=== PATIENT | female | born 1970 | race African-American/Black ===

== ENCOUNTER 2017-04-01 01:23 | Emergency (ER) | payer SELFPAY ==
--- NOTE | 2017-04-01 01:43 | ER Document Report ---
ED General - General Chief Complaint: Breathing Difficulty Stated Complaint: SHORTNESS OF BREATH Time Seen by Provider: 04/01/17 01:33 Mode of Arrival: Medic Information source: Patient Notes: This is a 46-year-old female with a history of hypertension, migraines who presents to the emergency room with shortness of breath occurring while she was lying down. EMS arrived at the scene and she was noted to have wheezing. The patient was treated with albuterol nebulizer and IV Solu-Medrol. She states that the shortness of breath improved significantly after the nebulizer treatment. She denies any chest pain. TRAVEL OUTSIDE OF THE [place] IN LAST 30 DAYS: No - HPI Onset: Just prior to arrival Onset/Duration: Gradual Quality of pain: No pain Severity: None Pain Level: Denies Associated symptoms: Shortness of breath, Other Exacerbated by: Denies - Wheezing Relieved by: Denies Similar symptoms previously: No Recently seen / treated by doctor: No - Related Data Allergies/Adverse Reactions: No Known Allergies Allergy (Unverified 04/01/17 01:32) Home Medications: Current Home Medications Lisinopril/Hydrochlorothiazide [Lisinopril-Hctz 20-12.5 mg Tab] 1 each PO DAILY 04/01/17 [History] Past Medical History - General Information source: Patient - Social History Smoking Status: Never Smoker Cigarette use (# per day): No Chew tobacco use (# tins/day): No Frequency of alcohol use: None Drug Abuse: None Lives with: Spouse/Significant other Family History: None Patient has suicidal ideation: No Patient has homicidal ideation: No - Past Medical History Cardiac Medical History: Reports: Hx Congestive Heart Failure, Hx Hypertension Renal/ Medical History: Denies: Hx Peritoneal Dialysis Past Surgical History: Reports: Hx Section, Hx Orthopedic Surgery - L elbow Review of Systems - Review of Systems Constitutional: Chills. denies: Fever EENT: No symptoms reported Cardiovascular: See HPI Respiratory: See HPI Gastrointestinal: No symptoms reported Genitourinary: No symptoms reported Female Genitourinary: No symptoms reported Musculoskeletal: No symptoms reported Skin: No symptoms reported Hematologic/Lymphatic: No symptoms reported Neurological/Psychological: No symptoms reported Physical Exam - Vital signs Vitals: Resp Pulse Ox 23 H 93 04/01/17 01:26 04/01/17 01:26 Notes: Physical exam: GENERAL: 46-year-old female, alert and oriented 3, no acute distress HEAD: Atraumatic, normocephalic. EYES: Pupils equal round and reactive to light, extraocular movements intact, sclera anicteric, conjunctiva are normal. ENT: TMs normal, nares patent, oropharynx clear without exudates. Moist mucous membranes. NECK: Normal range of motion, supple without obvious mass or JVD. LUNGS: Breath sounds clear to auscultation bilaterally and equal. No wheezes rales or rhonchi. HEART: Regular rate and rhythm without murmurs, rubs or gallops. ABDOMEN: Soft, normoactive bowel sounds. No tenderness to palpation. No guarding, no rebound. No masses appreciated. EXTREMITIES: Normal range of motion, no pitting or edema. No clubbing or cyanosis. NEUROLOGICAL: Cranial nerves II through XII grossly intact. Normal speech, moving all extremities. PSYCH: Normal mood, normal affect. SKIN: Warm, Dry, normal turgor, no rashes or lesions noted. Course - Re-evaluation Re-evalutation: 04/01/17 04:23 Note: The patient does give a history of being in the [place] ER when she was told she might have CHF on chest x-ray. She does not know if she has a history of a left bundle branch block. She has been asymptomatic in the ER. She did develop some shortness of breath at home and EMS had appreciated some wheezing and a given her a nebulizer treatment. Patient states that the nebulizer treatment took away the shortness of breath and the wheezing. She denies having any chest pain. Today's EKG shows sinus rhythm with a left bundle branch block. The patient's cardiac enzymes are normal. CTA of the chest shows no evidence of pulmonary emboli. CT does show possible atypical pneumonia. The patient denies any fever , chills or cough. Her lungs are clear on exam. I will place her on doxycycline because of the findings on the CT scan. I will also give her an inhaler to go home with. Ultimately, I want her followed by primary care doctor as well as a receiving associate store. She is new to the area and I will give her the number of the [facility] as well as Dr. Antony's office number for cardiology. - Vital Signs Vital signs: Temp Pulse Resp BP Pulse Ox 98.3 F 20 140/86 H 94 01/05/18 01:32 04/01/17 04:01 04/01/17 04:01 04/01/17 04:01 - Laboratory Result Diagrams: 04/01/17 01:50 04/01/17 01:50 Laboratory results interpreted by me: 04/01/17 04/01/17 01:50 01:50 WBC 14.7 H MCHC 31.8 L RDW 14.7 H Absolute Neutrophils 10.1 H Chloride 110 H Glucose 133 H - Diagnostic Test Radiology reviewed: Image reviewed, Reports reviewed - CTA of the chest shows no pulmonary emboli. Possible atypical pneumonia. - EKG Interpretation by Me Rate: Tachycardia Rhythm: NSR - EKG shows sinus tachycardia with a ventricular rate of 107, there is a left bundle branch block. There is no old EKG to compare. Discharge - Discharge Clinical Impression: Reactive airway disease., Atypical pneumonia Condition: Stable Disposition: HOME, SELF-CARE Additional Instructions: The blood work looked good today. Your heart was a little enlarged on the CT scan which is consistent with previous reports from [place]. The CT also showed that you may have an atypical pneumonia so we are starting you on antibiotic. Take the inhaler as prescribed for shortness of breath. Start the doxycycline later today (she was given this morning's dose). Restart your blood pressure medicine. Follow-up in the [facility] which is a free clinic: Call later today for the next available appointment. Follow-up with Dr. Antony of cardiology: Tell the boiler washer that you were seen in the ER and the ER doctor wanted to seen by Dr. Antony. Return to the emergency room for any chest pain, shortness of breath or any concerns or getting worse. Prescriptions: Doxycycline Hyclate 100 mg PO BID #14 capsule Lisinopril/Hydrochlorothiazide [Lisinopril-Hctz 20-12.5 mg Tab] 1 each PO DAILY #30 tablet Referrals: [facility] [Provider Group] - Follow up as needed (This is the number the free clinic: Call for the next available appointment.) JOSSELINE RODGERS MD [ACTIVE STAFF] - Follow up as needed (This is the number for the receiving associate store affiliated with the hospital. Tell the boiler washer that you was seen in the emergency room and the ER doctor wanted to seen by the receiving associate store.)
[2017-04-01 02:04] LABS: ABSOLUTE BASOPHILS # (AUTO) 0.1 10^3/uL (0.0-0.2); ABSOLUTE EOSINOPHILS # (AUTO) 0.2 10^3/uL (0.0-0.6); ABSOLUTE LYMPHOCYTES (AUTO) 3.7 10^3/uL (0.5-4.7); ABSOLUTE MONOCYTES (AUTO) 0.5 10^3/uL (0.1-1.4); ABSOLUTE NEUT (AUTO) 10.1 10^3/uL (1.7-8.2); BASOPHILS % (AUTO) 0.8 % (0-2); EOSINOPHILS % (AUTO) 1.4 % (0-6); HEMATOCRIT 43.9 % (36.0-47.0); LYMPHOCYTES % (AUTO) 25.4 % (13-45); MEAN CORPUSCULAR HEMOGLOBIN 27.3 pg (27.0-33.4); MEAN CORPUSCULAR HGB CONC 31.8 g/dL (32.0-36.0); MEAN CORPUSCULAR VOLUME 86 fl (80-97); MONOCYTES % (AUTO) 3.6 % (3-13); PLATELET COUNT 159 10^3/uL (150-450); RED BLOOD COUNT 5.12 10^6/uL (3.72-5.28); RED CELL DISTRIBUTION WIDTH 14.7 % (11.5-14.0); SEGMENTED NEUTROPHILS % (AUTO) 68.8 % (42-78); TOTAL CELLS COUNTED % (AUTO) 100 %; WHITE BLOOD COUNT 14.7 10^3/uL (4.0-10.5)
[2017-04-01 02:13] LABS: ALANINE AMINOTRANSFERASE 29 U/L (9-52); ALBUMIN 4.1 g/dL (3.5-5.0); ALKALINE PHOSPHATASE 80 U/L (38-126); ANION GAP 8 (5-19); ASPARTATE AMINO TRANSFERASE 15 U/L (14-36); BILIRUBIN,DIRECT 0.2 mg/dL (0.0-0.4); BILIRUBIN,TOTAL 0.3 mg/dL (0.2-1.3); BLOOD UREA NITROGEN 11 mg/dL (7-20); CALCIUM 9.9 mg/dL (8.4-10.2); CARBON DIOXIDE 26 mmol/L (22-30); CHLORIDE 110 mmol/L (98-107); CREATINE KINASE 105 U/L (30-135); GLUCOSE 133 mg/dL (75-110); MAGNESIUM 1.9 mg/dL (1.6-2.3); POTASSIUM 4.9 mmol/L (3.6-5.0); SODIUM 144.2 mmol/L (137-145)
[2017-04-01 02:27] LABS: CREATINE KINASE MB 0.76 ng/mL (<4.55); TROPONIN I 0.022 ng/mL
--- NOTE | 2017-04-01 03:11 | RADIOLOGY REPORT (SQ) ---
EXAM DESCRIPTION: CHEST SINGLE VIEW CLINICAL HISTORY: 46 years, Female, sob COMPARISON: None. NUMBER OF VIEWS: 1 LIMITATIONS: None. FINDINGS: Mild enlargement of the cardiac silhouette. Clear lung parenchyma. Intact bony thorax. IMPRESSION: Mild enlargement of the cardiac silhouette. 2011 [employer]- All Rights Reserved
[2017-04-01 04:04] VITALS: BP 140/86
--- NOTE | 2017-04-01 04:10 | RADIOLOGY REPORT (SQ) ---
EXAM DESCRIPTION: CTA CHEST CLINICAL HISTORY: 46 years Female, sob COMPARISON: CR, same day. TECHNIQUE: 100 mL nonionic IV contrast. Multiplanar reformat. This exam was performed according to our departmental dose-optimization program, which includes automated exposure control, adjustment of the mA and/or kV according to patient size and/or use of iterative reconstruction technique. FINDINGS: Small bilateral pleural effusions. Groundglass airspace opacity of the left lower lobe and minimally of the right lower lobe. No evidence of significant pulmonary embolus; pulmonary arterial enhancement measures to 220 Hounsfield units. No right ventricular strain. 1.4 cm likely right adrenal adenoma with CT density of 18 Hounsfield units. Minimal mediastinal lymphadenopathy includes a 1.0 x 0.7 cm left aortopulmonary node. 0.4 cm calcified granuloma of the left lower lung. Mild disc desiccation. Inferior neck, axillae, airway, lymphatics, heart, vasculature, upper abdomen, and musculoskeleton appear otherwise unremarkable. IMPRESSION: 1. Possible atypical pneumonia of bilateral lower lobes. 2. No evidence of pulmonary embolus.
[2017-04-01] MEDS ORDERED: ALBUTEROL SULFATE HFA (90 MCG/PUFF) 8 GM MDI (1 MDI/ER DISP) IH PRN (04:15)
[2017-04-01] MEDS ORDERED: DOXYCYCLINE HYCLATE 100 MG TABLET PO ONE (04:37)
--- NOTE | 2017-04-01 09:24 | EKG REPORT ---
SEVERITY:- ABNORMAL ECG - SINUS TACHYCARDIA PROBABLE LEFT ATRIAL ABNORMALITY LEFT BUNDLE BRANCH BLOCK : Confirmed by: Lb Guevara 01-Apr-2017 09:23:47
== END 2017-04-01 05:01 | disposition home or self-care (01) ==
LOC: ER 01:23
DX: J18.9 Pneumonia, unspecified organism (principal); J45.909 Unspecified asthma, uncomplicated; R06.02 Shortness of breath; I10 Essential (primary) hypertension; Z79.899 Other long term (current) drug therapy
CPT/HCPCS: 93005; 99285; 36415; 82553; 82550; 83735; 85025; 80053; 84484; 71045; 71275; 93010; J3490

== ENCOUNTER 2018-04-03 11:55 | Emergency (ER) | payer BC ==
--- NOTE | 2018-04-03 12:58 | ER Document Report ---
ED General - General Chief Complaint: Shortness Of Breath Stated Complaint: CHEST PAIN, LEFT ARM PAIN Time Seen by Provider: 04/03/18 12:57 TRAVEL OUTSIDE OF THE [place] IN LAST 30 DAYS: No - Related Data Allergies/Adverse Reactions: No Known Allergies Allergy (Verified 04/03/18 12:02) Past Medical History - Social History Family History: None - Past Medical History Cardiac Medical History: Reports: Hx Congestive Heart Failure, Hx Hypertension Renal/ Medical History: Denies: Hx Peritoneal Dialysis Past Surgical History: Reports: Hx Section, Hx Orthopedic Surgery - L elbow Physical Exam - Vital signs Vitals: Temp Pulse Resp BP Pulse Ox 98.2 F 111 H 16 167/116 H 98 04/03/18 12:02 04/03/18 12:02 04/03/18 12:02 04/03/18 12:02 04/03/18 12:02 Course - Vital Signs Vital signs: Temp Pulse Resp BP Pulse Ox 98.2 F 111 H 16 167/116 H 98 04/03/18 12:02 04/03/18 12:02 04/03/18 12:02 04/03/18 12:02 04/03/18 12:02
[2018-04-03] MEDS ORDERED: NITROGLYCERIN 0.4 MG/TAB 25 TAB/BOTTLE SL PRN (13:02)
[2018-04-03] MEDS ORDERED: ASPIRIN 81 MG TABLET, CHEWABLE PO ONE (13:02)
--- NOTE | 2018-04-03 13:04 | ER Document Report ---
ED Medical Screen (RME) - General Chief Complaint: Shortness Of Breath Stated Complaint: CHEST PAIN, LEFT ARM PAIN Time Seen by Provider: 04/03/18 12:57 Notes: RAPID MEDICAL EVALUATION DISCLOSURE I have seen this patient as part of a Rapid Medical Evaluation and, if applicable, placed any initially appropriate orders. The patient will be seen and fully evaluated, including a full history and physical exam, by a provider (in Main ED or Fast Track) when a room becomes available. 47-year-old female PMH tobacco abuse hypertension here with complaints of chest pain shortness of breath ongoing for the past few weeks. The chest pain radiates up to her left shoulder and down the left arm. She has the chest pain worse with exertion but completely resolves when she sits down and stops walking or exerting herself. The chest pain was initially sporadic however over the past 7 days has become more frequent and persistent with exertion. The pain is not worse with breathing. She has not tried anything for the symptoms. She reports being seen in the emergency department last year and "I had fluid around my heart" but did not have any insurance so she did not follow-up outpatient. EXAM CTAB RRR TRAVEL OUTSIDE OF THE [place] IN LAST 30 DAYS: No - Related Data Allergies/Adverse Reactions: No Known Allergies Allergy (Verified 04/03/18 12:02) Past Medical History - Past Medical History Cardiac Medical History: Reports: Hx Congestive Heart Failure, Hx Hypertension Renal/ Medical History: Denies: Hx Peritoneal Dialysis Past Surgical History: Reports: Hx Section, Hx Orthopedic Surgery - L elbow Physical Exam - Vital signs Vitals: Temp Pulse Resp BP Pulse Ox 98.2 F 111 H 16 167/116 H 98 04/03/18 12:02 04/03/18 12:02 04/03/18 12:02 04/03/18 12:02 04/03/18 12:02 Course - Vital Signs Vital signs: Temp Pulse Resp BP Pulse Ox 98.2 F 111 H 16 167/116 H 98 04/03/18 12:02 04/03/18 12:02 04/03/18 12:02 04/03/18 12:02 04/03/18 12:02
--- NOTE | 2018-04-03 13:06 | EKG REPORT ---
SEVERITY:- ABNORMAL ECG - SINUS TACHYCARDIA PROBABLE LEFT ATRIAL ABNORMALITY LEFT BUNDLE BRANCH BLOCK : Confirmed by: Domenic Castano MD 03-Apr-2018 13:05:18
[2018-04-03] MEDS ORDERED: ASPIRIN 81 MG TABLET, CHEWABLE ONE (13:08)
--- NOTE | 2018-04-03 13:49 | RADIOLOGY REPORT (SQ) ---
EXAM DESCRIPTION: CHEST 2 VIEWS COMPLETED DATE/TIME: 04/03/2018 1:20 pm REASON FOR STUDY: CP SOB COMPARISON: 04/01/2017 EXAM PARAMETERS: NUMBER OF VIEWS: two views TECHNIQUE: Digital Frontal and Lateral radiographic views of the chest acquired. RADIATION DOSE: NA LIMITATIONS: none FINDINGS: LUNGS AND PLEURA: No opacities, masses or pneumothorax. No pleural effusion. MEDIASTINUM AND HILAR STRUCTURES: No masses or contour abnormalities. HEART AND VASCULAR STRUCTURES: Mild cardiomegaly. BONES: No acute findings. HARDWARE: None in the chest. OTHER: No other significant finding. IMPRESSION: Mild cardiomegaly without acute abnormality of the lungs. No focal airspace opacity. TECHNICAL DOCUMENTATION: JOB ID: [id number] [employer]- All Rights Reserved Reading location - IP/workstation name: [email or web address]
[2018-04-03 14:02] LABS: ABSOLUTE EOSINOPHILS # (AUTO) 0.1 10^3/uL (0.0-0.6); ABSOLUTE LYMPHOCYTES (AUTO) 2.9 10^3/uL (0.5-4.7); ABSOLUTE MONOCYTES (AUTO) 0.4 10^3/uL (0.1-1.4); ABSOLUTE NEUT (AUTO) 5.6 10^3/uL (1.7-8.2); BASOPHILS % (AUTO) 0.4 % (0-2); EOSINOPHILS % (AUTO) 1.2 % (0-6); HEMATOCRIT 42.2 % (36.0-47.0); HEMOGLOBIN 13.8 g/dL (12.0-15.5); LYMPHOCYTES % (AUTO) 31.6 % (13-45); MEAN CORPUSCULAR HEMOGLOBIN 27.9 pg (27.0-33.4); MEAN CORPUSCULAR HGB CONC 32.7 g/dL (32.0-36.0); MEAN CORPUSCULAR VOLUME 85 fl (80-97); RED BLOOD COUNT 4.95 10^6/uL (3.72-5.28); RED CELL DISTRIBUTION WIDTH 15.3 % (11.5-14.0); SEGMENTED NEUTROPHILS % (AUTO) 61.8 % (42-78); TOTAL CELLS COUNTED % (AUTO) 100 %
[2018-04-03 14:20] LABS: ALANINE AMINOTRANSFERASE 20 U/L (9-52); ALBUMIN 4.1 g/dL (3.5-5.0); ALKALINE PHOSPHATASE 85 U/L (38-126); ANION GAP 5 (5-19); ASPARTATE AMINO TRANSFERASE 15 U/L (14-36); BILIRUBIN,DIRECT 0.2 mg/dL (0.0-0.4); BILIRUBIN,TOTAL 0.4 mg/dL (0.2-1.3); BLOOD UREA NITROGEN 14 mg/dL (7-20); CALCIUM 9.3 mg/dL (8.4-10.2); CARBON DIOXIDE 29 mmol/L (22-30); CHLORIDE 107 mmol/L (98-107); GLUCOSE 110 mg/dL (75-110); POTASSIUM 4.2 mmol/L (3.6-5.0); SODIUM 140.8 mmol/L (137-145); TOTAL PROTEIN 7.4 g/dL (6.3-8.2)
--- NOTE | 2018-04-03 14:24 | ER Document Report ---
ED General - General Chief Complaint: Shortness Of Breath Stated Complaint: CHEST PAIN, LEFT ARM PAIN Time Seen by Provider: 04/03/18 12:57 Information source: Patient, Relative TRAVEL OUTSIDE OF THE [place] IN LAST 30 DAYS: No - HPI Patient complains to provider of: Short of breath Onset: Other - Here is a 47-year-old female that presents for evaluation of shortness of breath. She has had worsening exertional dyspnea over the last several months with an associated weight gain and some bloating with that time. Occasionally she has had some chest discomfort associated with it as well. She denies productive cough, fevers, chills, abdominal pain diarrhea constipation dysuria rashes or other symptoms she has seen her primary physician in the past was started on a blood pressure medication but it did not entirely resolve her symptoms. 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 - Related Data Allergies/Adverse Reactions: No Known Allergies Allergy (Verified 04/03/18 12:02) Past Medical History - General Information source: Patient, Relative - Social History Smoking Status: Current Every Day Smoker Chew tobacco use (# tins/day): No Frequency of alcohol use: None Drug Abuse: None Family History: None Patient has suicidal ideation: No Patient has homicidal ideation: No - Past Medical History Cardiac Medical History: Reports: Hx Congestive Heart Failure, Hx Hypertension Renal/ Medical History: Denies: Hx Peritoneal Dialysis Past Surgical History: Reports: Hx Section, Hx Orthopedic Surgery - L elbow Review of Systems - Review of Systems -: Yes All other systems reviewed and negative Physical Exam - Vital signs Vitals: Temp Pulse Resp BP Pulse Ox 98.2 F 111 H 16 167/116 H 98 04/03/18 12:02 04/03/18 12:02 04/03/18 12:02 04/03/18 12:02 04/03/18 12:02 - General General appearance: Appears well, Alert - HEENT Head: Normocephalic, Atraumatic Eyes: Normal Pupils: PERRL - Respiratory Respiratory status: No respiratory distress Chest status: Nontender Breath sounds: Normal Chest palpation: Normal - Cardiovascular Rhythm: Regular Heart sounds: Normal auscultation Murmur: No - Abdominal Inspection: Normal Distension: No distension Bowel sounds: Normal Tenderness: Nontender Organomegaly: No organomegaly - Back Back: Normal, Nontender - Extremities General upper extremity: Normal inspection, Nontender, Normal color, Normal ROM, Normal temperature General lower extremity: Normal inspection, Nontender, Normal color, Normal ROM, Normal temperature, Normal weight bearing. No: Abner's sign - Neurological Neuro grossly intact: Yes Cognition: Normal Orientation: AAOx4 Helen Coma Scale Eye Opening: Spontaneous [place] Coma Scale Verbal: Oriented Helen Coma Scale Motor: Obeys Commands Helen Coma Scale Total: 15 Speech: Normal Motor strength normal: LUE, RUE, LLE, RLE Sensory: Normal - Psychological Associated symptoms: Normal affect, Normal mood Course - Re-evaluation Re-evalutation: 04/05/18 00:32 39-year-old female who presented for some shortness of breath with appreciable peripheral edema. Patient had workup initiated through triage in which they obtained blood tests chest x-ray as well as an EKG. EKG was nondiagnostic, she did have a slightly elevated BNP. Other labs were unremarkable. Bedside ultrasound demonstrated what appeared to be an intact ejection fraction for this patient without an obvious pericardial effusion. She had a normal work of breathing on room air with faint crackles in the inferior lung bases. Believe likely she has some edema has an underlying element of this. We will initiate treatment with a diuretic the emergency department and reassess. After administration of diuretic in the emergency department she did have an improvement in her work of breathing said that she felt much better. She did say that previously she had had an improvement while using an inhaler. Believe it is relatively benign intervention and will give her a inhaler for as needed use in addition to starting her on a daily thiazide diuretic at a low dose. - Vital Signs Vital signs: Temp Pulse Resp BP Pulse Ox 98.2 F 111 H 15 138/84 H 99 04/03/18 12:02 04/03/18 12:02 04/03/18 18:01 04/03/18 18:00 04/03/18 18:01 - Laboratory Result Diagrams: 04/03/18 13:40 04/03/18 13:40 Laboratory results interpreted by me: 04/03/18 04/03/18 13:40 13:40 RDW 15.3 H Plt Count 129 L NT-Pro-B Natriuret Pep 598 H Discharge - Discharge Clinical Impression: Pulmonary edema cardiac cause, Shortness of breath Condition: Good Disposition: HOME, SELF-CARE Instructions: Dependent Edema ([facility]) Additional Instructions: You were seen today in the emergency department for your shortness of breath. I think that your shortness of breath is from too much fluid around your lungs. You had an evaluation including a physical exam as well as blood work and a chest x-ray. A marker for damage to your heart was normal today. I do think you should schedule an appointment with your primary doctor in the coming week for reevaluation. Prescriptions: Albuterol Sulfate [Ventolin Hfa 8 gm Mdi (1 Mdi/ER Disp)] 2 puff IH ASDIR PRN #1 inhaler PRN Reason: Hydrochlorothiazide [Hydrodiuril 25 mg Tablet] 25 mg PO QAM #30 tablet Forms: Smoking Cessation Education
[2018-04-03 14:32] LABS: NT PRO BNP 598 pg/mL (<125)
[2018-04-03 14:33] LABS: TROPONIN I < 0.012 ng/mL
[2018-04-03 14:49] LABS: PLATELET COUNT 129 10^3/uL (150-450)
[2018-04-03 14:51] LABS: ANISOCYTOSIS SLIGHT; HYPOCHROMASIA 1+; PLATELET COMMENT DECREASED; PLATELET LARGE PRESENT; POLYCHROMASIA 1+
[2018-04-03] MEDS ORDERED: FUROSEMIDE INJ/PF 20 MG/2 ML SDV IV ONE (15:30)
[2018-04-03 18:40] VITALS: BP 138/84
== END 2018-04-03 18:40 | disposition home or self-care (01) ==
LOC: ER 11:55
DX: J81.1 Chronic pulmonary edema (principal); R06.02 Shortness of breath; R07.9 Chest pain, unspecified; M79.602 Pain in left arm; F17.200 Nicotine dependence, unspecified, uncomplicated; I50.9 Heart failure, unspecified; I11.0 Hypertensive heart disease with heart failure
CPT/HCPCS: 93005; 99284; 96374; 36415; 85025; 80053; 84484; 83880; 71046; 93010; J1940

== ENCOUNTER 2018-07-02 11:50 | Emergency (ER) | payer BC, OTHER ==
[2018-07-02] MEDS ORDERED: HYDROCHLOROTHIAZIDE 25 MG TABLET PO ONE (12:26)
--- NOTE | 2018-07-02 12:29 | ER Document Report ---
ED Medical Screen (RME) - General Chief Complaint: Shortness Of Breath Stated Complaint: SHORT OF BREATH,EAR BLEEDING Time Seen by Provider: 07/02/18 12:20 TRAVEL OUTSIDE OF THE [place] IN LAST 30 DAYS: No - HPI Notes: 07/02/18 12:26 Patient is a 48-year-old female with a history of hypertension and "possible CHF" who presents the emergency department complaining of dyspnea on exertion over the past week without chest pain or recent URI. Patient states that at the end of the day she usually does have swelling in her legs bilaterally. 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 She does note bleeding from her right ear after using a Q-tip the other day. She has been out of her HCTZ 25mg that she takes daily for HTN. No other concerns or complaints. Denies any prolonged immobilization, distance travel, recent surgery/trauma, personal cancer history, hormone use, smoking, or previous DVT/PE. Denies any headache, fever, neck pain, URI, sore throat, chest pain, palpitations, syncope, cough, wheeze, abdominal pain, nausea/vomiting/diarrhea, urinary retention, dysuria, hematuria, or rash. I have treated and performed a rapid initial assessment of this patient. A comprehensive ED assessment and evaluation of the patient, analysis of test results and completion of medical decision making process will be conducted by additional ED providers. PHYSICAL EXAMINATION: GENERAL: Well-appearing, well-nourished and in no acute distress. A&Ox4. Answers questions appropriately. Rt EAC: small abrasion to EAC. TM wnl and w/o perforation. LUNGS: Breath sounds clear to auscultation bilaterally and equal. No wheezes rales or rhonchi. HEART: Regular rate and rhythm without murmurs, rubs, gallops. Extremities: Trace pitting edema bilaterally. Baner negative bilaterally and no lower extremity asymmetry.. NEUROLOGICAL: Normal speech, normal gait. PSYCH: Normal mood, normal affect. - Related Data Allergies/Adverse Reactions: No Known Allergies Allergy (Verified 04/03/18 12:02) Past Medical History - Past Medical History Cardiac Medical History: Reports: Hx Congestive Heart Failure, Hx Hypertension Renal/ Medical History: Denies: Hx Peritoneal Dialysis Past Surgical History: Reports: Hx Section, Hx Orthopedic Surgery - L elbow Physical Exam - Vital signs Vitals: Temp Pulse Resp BP Pulse Ox 97.9 F 103 H 16 158/110 H 95 07/02/18 12:02 07/02/18 12:02 07/02/18 12:02 07/02/18 12:02 07/02/18 12:02 Course - Vital Signs Vital signs: Temp Pulse Resp BP Pulse Ox 97.9 F 103 H 16 158/110 H 95 07/02/18 12:02 07/02/18 12:02 07/02/18 12:02 07/02/18 12:02 07/02/18 12:02
[2018-07-02 13:07] LABS: ABSOLUTE BASOPHILS # (AUTO) 0.1 10^3/uL (0.0-0.2); ABSOLUTE EOSINOPHILS # (AUTO) 0.1 10^3/uL (0.0-0.6); ABSOLUTE LYMPHOCYTES (AUTO) 3.2 10^3/uL (0.5-4.7); ABSOLUTE MONOCYTES (AUTO) 0.5 10^3/uL (0.1-1.4); ABSOLUTE NEUT (AUTO) 6.6 10^3/uL (1.7-8.2); BASOPHILS % (AUTO) 0.8 % (0-2); EOSINOPHILS % (AUTO) 1.2 % (0-6); HEMATOCRIT 44.6 % (36.0-47.0); HEMOGLOBIN 14.7 g/dL (12.0-15.5); LYMPHOCYTES % (AUTO) 30.1 % (13-45); MEAN CORPUSCULAR HEMOGLOBIN 27.6 pg (27.0-33.4); MEAN CORPUSCULAR HGB CONC 32.9 g/dL (32.0-36.0); MEAN CORPUSCULAR VOLUME 84 fl (80-97); MONOCYTES % (AUTO) 4.8 % (3-13); PLATELET COUNT 133 10^3/uL (150-450); RED BLOOD COUNT 5.31 10^6/uL (3.72-5.28); SEGMENTED NEUTROPHILS % (AUTO) 63.1 % (42-78); TOTAL CELLS COUNTED % (AUTO) 100 %; WHITE BLOOD COUNT 10.5 10^3/uL (4.0-10.5)
[2018-07-02 13:20] LABS: ALANINE AMINOTRANSFERASE 22 U/L (9-52); ALBUMIN 4.1 g/dL (3.5-5.0); ALKALINE PHOSPHATASE 82 U/L (38-126); ANION GAP 8 (5-19); ASPARTATE AMINO TRANSFERASE 20 U/L (14-36); BILIRUBIN,DIRECT 0.3 mg/dL (0.0-0.4); BILIRUBIN,TOTAL 0.4 mg/dL (0.2-1.3); BLOOD UREA NITROGEN 12 mg/dL (7-20); CALCIUM 9.9 mg/dL (8.4-10.2); CARBON DIOXIDE 27 mmol/L (22-30); CHLORIDE 104 mmol/L (98-107); GLUCOSE 130 mg/dL (75-110); POTASSIUM 4.5 mmol/L (3.6-5.0); SODIUM 139.2 mmol/L (137-145); TOTAL PROTEIN 7.8 g/dL (6.3-8.2)
--- NOTE | 2018-07-02 13:26 | RADIOLOGY REPORT (SQ) ---
EXAM DESCRIPTION: CHEST SINGLE VIEW COMPLETED DATE/TIME: 07/02/2018 1:03 pm REASON FOR STUDY: SOB COMPARISON: 04/03/2018 TECHNIQUE: Single frontal radiographic view of the chest acquired. NUMBER OF VIEWS: One view. LIMITATIONS: None. FINDINGS: LUNGS AND PLEURA: No pneumothorax. No consolidation or pleural effusion. MEDIASTINUM AND HILAR STRUCTURES: Stable. HEART AND VASCULAR STRUCTURES: Stable. BONES: No acute findings. HARDWARE: None in the chest. OTHER: No other significant finding. IMPRESSION: NO ACUTE FINDINGS. TECHNICAL DOCUMENTATION: JOB ID: [id number] [id number] 2010 [employer]- All Rights Reserved Reading location - IP/workstation name: [email or web address]
[2018-07-02] MEDS ORDERED: FUROSEMIDE INJ/PF 20 MG/2 ML SDV IV ONE (14:44)
[2018-07-02 15:12] LABS: CREATINE KINASE MB 0.49 ng/mL (<4.55); TROPONIN I 0.012 ng/mL
--- NOTE | 2018-07-02 15:38 | EKG REPORT ---
SEVERITY:- ABNORMAL ECG - SINUS RHYTHM PROBABLE LEFT ATRIAL ABNORMALITY LEFT BUNDLE BRANCH BLOCK : Confirmed by: Domenic Castano MD 02-Jul-2018 15:37:37
[2018-07-02 19:21] VITALS: BP 156/108
--- NOTE | 2018-07-02 23:16 | ER Document Report ---
Entered by CORTNEY PEREZ SCRIBE 07/02/18 1441 Acting as scribe for:ROBYN CRAFT DO ED Respiratory Problem - General Chief Complaint: Shortness Of Breath Stated Complaint: SHORT OF BREATH,EAR BLEEDING Time Seen by Provider: 07/02/18 12:20 Primary Care Provider: CORRY PACHECO MD [Primary Care Provider] - Follow up as needed Mode of Arrival: Ambulatory Information source: Patient Notes: 48 year old female that presents to the emergency department today with complaints of shortness of breath for the last several days. Patient states she has been out of her HCTZ 25 mg for several days and she has noticed that her shortness of breath became worse since running out of medications. Patient also mentions that x3 days ago she was "cleaning her ears" and she "felt a lump" and has noticed some drainage from her ear since then. Patient states that she has not had any difficulty hearing. Patient states that she sometimes develops left arm pain when walking around. Patient states that the most recent time this occurred was last week. Patient denies any chest pain currently. TRAVEL OUTSIDE OF THE [place] IN LAST 30 DAYS: No - Related Data Allergies/Adverse Reactions: No Known Allergies Allergy (Verified 04/03/18 12:02) Past Medical History - General Information source: Patient - Social History Smoking Status: Current Every Day Smoker Cigarette use (# per day): Yes Frequency of alcohol use: Social Drug Abuse: None Lives with: Family Family History: None Patient has suicidal ideation: No Patient has homicidal ideation: No - Past Medical History Cardiac Medical History: Reports: Hx Congestive Heart Failure, Hx Hypertension Past Surgical History: Reports: Hx Section, Hx Orthopedic Surgery - L elbow Review of Systems - Review of Systems Constitutional: No symptoms reported EENT: See HPI, Other - right ear drainage, "lump" felt Cardiovascular: denies: Chest pain Respiratory: See HPI, Short of breath Gastrointestinal: No symptoms reported Genitourinary: No symptoms reported Female Genitourinary: No symptoms reported Musculoskeletal: See HPI, Leg swelling Skin: No symptoms reported Hematologic/Lymphatic: No symptoms reported Neurological/Psychological: No symptoms reported -: Yes All other systems reviewed and negative Physical Exam - Vital signs Vitals: Temp Pulse Resp BP Pulse Ox 97.9 F 103 H 16 158/110 H 95 07/02/18 12:02 07/02/18 12:02 07/02/18 12:02 07/02/18 12:02 07/02/18 12:02 - Notes Notes: PHYSICAL EXAM GENERAL: Alert, interacts well. No acute distress. HEAD: Normocephalic, atraumatic. EYES: Pupils equal, round, and reactive to light. Extraocular movements intact. ENT: Oral mucosa moist, tongue midline. TMs intact bilaterally, superficial abrasion over the 6 oclock position in the right external auditory canal. NECK: Full range of motion. Supple. Trachea midline. LUNGS: Clear to auscultation bilaterally, no wheezes, rales, or rhonchi. No respiratory distress. HEART: Regular rate and rhythm. No murmurs, gallops, or rubs. ABDOMEN: Soft, non-tender. Non-distended. Bowel sounds present in all 4 nathaly drants. No guarding, rigidity, or rebound. EXTREMITIES: Moves all 4 extremities spontaneously. No edema, radial and dorsalis pedis pulses 2/4 bilaterally. No cyanosis. NEUROLOGICAL: Alert and oriented x3. Normal speech. PSYCH: Normal affect, normal mood. SKIN: Warm, dry, normal turgor. Course - Re-evaluation Re-evalutation: 07/02/18 17:44 CBC unremarkable, CMP grossly unremarkable, glucose is slightly elevated 138, cardiac enzymes negative, proBNP elevated at 1450. Chest x-ray shows no acute findings. EKG is nonischemic. Vital signs here are normal. Patient has no evidence of respiratory distress. Very mild trace edema on her feet. Patient has not had chest pain for several days. No indication for admission at this time. Patient is aware that she will need to follow-up with her primary care physician as an outpatient and with craft demonstrator as outpatient to have a stress test sometime over the next month. Patient will be provided with refills of her nitroglycerin and her hydrochlorothiazide. Limited prescription for Lasix. Patient has been referred to Dr. Roper and Dr. Samayoa for cardiology follow-up. She will contact them herself. 07/02/18 23:16 Computer downtime occurred as soon as I tried to discharge this patient, written discharge instructions were given as were hand written prescriptions. - Vital Signs Vital signs: Temp Pulse Resp BP Pulse Ox 98 F 70 16 156/108 H 98 07/02/18 19:21 07/02/18 19:21 07/02/18 19:21 07/02/18 19:21 07/02/18 19:21 - Laboratory Result Diagrams: 07/02/18 12:35 07/02/18 12:35 Laboratory results interpreted by me: 07/02/18 07/02/18 07/02/18 12:35 12:35 12:35 RBC 5.31 H RDW 15.0 H Plt Count 133 L Glucose 130 H NT-Pro-B Natriuret Pep 1450 H - EKG Interpretation by Me Additional EKG results interpreted by me: 07/02/18 17:45 EKG shows sinus rhythm at a rate of 91, left bundle branch block, negative sgarbossa criteria, unchanged from prior EKG with the exception of rate on 04/03/2016 per my interpretation. Discharge - Discharge Clinical Impression: Medication refill Acute exacerbation of CHF (congestive heart failure) Qualifiers: Heart failure type: systolic Qualified Code(s): I50.23 - Acute on chronic systolic (congestive) heart failure Chest pain Qualifiers: Chest pain type: precordial pain Qualified Code(s): R07.2 - Precordial pain Condition: Stable Disposition: HOME, SELF-CARE Referrals: CORRY PACHECO MD [Primary Care Provider] - Follow up as needed I personally performed the services described in the documentation, reviewed and edited the documentation which was dictated to the scribe in my presence, and it accurately records my words and actions.
== END 2018-07-02 19:21 | disposition home or self-care (01) ==
LOC: ER 11:50
DX: I50.23 Acute on chronic systolic (congestive) heart failure (principal); R07.2 Precordial pain; R06.02 Shortness of breath; F17.210 Nicotine dependence, cigarettes, uncomplicated; I50.9 Heart failure, unspecified; I11.0 Hypertensive heart disease with heart failure
CPT/HCPCS: 93005; 99283; 96374; 36415; 82553; 82550; 85025; 80053; 84484; 83880; 71045; 93010; J1940

== ENCOUNTER 2018-10-22 12:33 | Inpatient (IN) | payer SELFPAY ==
--- NOTE | 2018-10-22 14:22 | ER Document Report ---
ED Medical Screen (RME) - General Chief Complaint: Shortness Of Breath Stated Complaint: SHORTNESS OF BREATH Time Seen by Provider: 10/22/18 14:11 Primary Care Provider: CORRY PACHECO MD [Primary Care Provider] - Follow up as needed Notes: Patient is a 48-year-old female presents emergency department with a chief complaint of shortness of breath. She states that her shortness of breath started yesterday. She states that she has had shortness of breath for the past month, but now states she has some orthopnea. Patient was diagnosed with congestive heart failure, but has not followed up with the [facility] or a prescription clerk lenses in regards to this issue. Patient states that walking long distances makes her short of breath. Month ago she also was prescribed nitroglycerin and hydrochlorothiazide, but her dog ate her medication. Exam: Tachypneic and tachycardic. I have greeted and performed a rapid initial assessment of this patient. A comprehensive ED assessment and evaluation of the patient, analysis of test results and completion of medical decision making process will be conducted by an additional ED providers. TRAVEL OUTSIDE OF THE [place] IN LAST 30 DAYS: No - Related Data Allergies/Adverse Reactions: No Known Allergies Allergy (Verified 10/22/18 12:34) Past Medical History - Social History Chew tobacco use (# tins/day): No Frequency of alcohol use: None Drug Abuse: None - Past Medical History Cardiac Medical History: Reports: Hx Congestive Heart Failure, Hx Hypertension Renal/ Medical History: Denies: Hx Peritoneal Dialysis Past Surgical History: Reports: Hx Section, Hx Orthopedic Surgery - L elbow Physical Exam - Vital signs Vitals: Temp Pulse Resp BP Pulse Ox 97.3 F 127 H 20 184/129 H 99 10/22/18 12:40 10/22/18 12:40 10/22/18 12:40 10/22/18 12:40 10/22/18 12:40 Course - Vital Signs Vital signs: Temp Pulse Resp BP Pulse Ox 97.3 F 127 H 20 184/129 H 99 10/22/18 12:40 10/22/18 12:40 10/22/18 12:40 10/22/18 12:40 10/22/18 12:40 Doctor's Discharge - Discharge Referrals: CORRY PACHECO MD [Primary Care Provider] - Follow up as needed
[2018-10-22 15:01] LABS: ABSOLUTE BASOPHILS # (AUTO) 0.1 10^3/uL (0.0-0.2); ABSOLUTE EOSINOPHILS # (AUTO) 0.1 10^3/uL (0.0-0.6); ABSOLUTE MONOCYTES (AUTO) 0.5 10^3/uL (0.1-1.4); ABSOLUTE NEUT (AUTO) 6.3 10^3/uL (1.7-8.2); BASOPHILS % (AUTO) 0.6 % (0-2); EOSINOPHILS % (AUTO) 1.2 % (0-6); HEMATOCRIT 39.1 % (36.0-47.0); HEMOGLOBIN 12.6 g/dL (12.0-15.5); LYMPHOCYTES % (AUTO) 30.1 % (13-45); MEAN CORPUSCULAR HEMOGLOBIN 28.2 pg (27.0-33.4); MEAN CORPUSCULAR HGB CONC 32.2 g/dL (32.0-36.0); MEAN CORPUSCULAR VOLUME 88 fl (80-97); MONOCYTES % (AUTO) 4.5 % (3-13); PLATELET COUNT 168 10^3/uL (150-450); RED BLOOD COUNT 4.46 10^6/uL (3.72-5.28); RED CELL DISTRIBUTION WIDTH 16.5 % (11.5-14.0); SEGMENTED NEUTROPHILS % (AUTO) 63.6 % (42-78); TOTAL CELLS COUNTED % (AUTO) 100 %
[2018-10-22 15:11] LABS: ALANINE AMINOTRANSFERASE 31 U/L (9-52); ALBUMIN 4.5 g/dL (3.5-5.0); ALKALINE PHOSPHATASE 85 U/L (38-126); ANION GAP 10 (5-19); ASPARTATE AMINO TRANSFERASE 21 U/L (14-36); BILIRUBIN,DIRECT 0.3 mg/dL (0.0-0.4); BILIRUBIN,TOTAL 0.9 mg/dL (0.2-1.3); BLOOD UREA NITROGEN 15 mg/dL (7-20); CARBON DIOXIDE 25 mmol/L (22-30); CHLORIDE 108 mmol/L (98-107); CREATINE KINASE 72 U/L (30-135); GLUCOSE 112 mg/dL (75-110); POTASSIUM 4.4 mmol/L (3.6-5.0); TOTAL PROTEIN 7.8 g/dL (6.3-8.2)
[2018-10-22 15:13] LABS: INTERNATIONAL RATION (INR) 1.05; PROTHROMBIN TIME 13.7 SEC (11.4-15.4)
[2018-10-22 15:14] LABS: PARTIAL THROMBOPLASTIN TIME 30.2 SEC (23.5-35.8)
[2018-10-22 15:16] LABS: D-DIMER 0.91 ug/mL (0.00-0.50)
[2018-10-22 15:23] LABS: CREATINE KINASE MB 1.04 ng/mL (<4.55); TROPONIN I 0.017 ng/mL
--- NOTE | 2018-10-22 15:31 | RADIOLOGY REPORT (SQ) ---
EXAM DESCRIPTION: CHEST SINGLE VIEW COMPLETED DATE/TIME: 10/22/2018 3:03 pm REASON FOR STUDY: shortness of breath COMPARISON: None. EXAM PARAMETERS: NUMBER OF VIEWS: One view. TECHNIQUE: Single frontal radiographic view of the chest acquired. RADIATION DOSE: NA LIMITATIONS: None. FINDINGS: LUNGS AND PLEURA: Small right pleural effusion. . MEDIASTINUM AND HILAR STRUCTURES: No masses. Contour normal. HEART AND VASCULAR STRUCTURES: Borderline cardiomegaly. The pulmonary vasculature is mildly prominen t. BONES: No acute findings. HARDWARE: None in the chest. OTHER: No other significant finding. IMPRESSION: Borderline cardiomegaly with mild pulmonary vascular congestion. Small right pleural ef fusion. TECHNICAL DOCUMENTATION: JOB ID: [id number] [employer]- All Rights Reserved Reading location - IP/workstation name: [email or web address]
[2018-10-22] MEDS ORDERED: FUROSEMIDE INJ/PF 20 MG/2 ML SDV IV ONE (16:58)
--- NOTE | 2018-10-22 17:00 | ER Document Report ---
ED Respiratory Problem - General Chief Complaint: Shortness Of Breath Stated Complaint: SHORTNESS OF BREATH Time Seen by Provider: 10/22/18 14:11 Primary Care Provider: CORRY PACHECO MD [NO LOCAL MD] - Follow up as needed Notes: Patient is a 48-year-old female with a history of congestive heart failure and hypertension who presents to the emergency department c/o shortness of breath. Patient states she was prescribed lisinopril and hydrochlorothiazide and has been out of her medication since June as her dog ate the medicine bottle. Patient states 2 weeks ago she developed some shortness of breath but is worse with ambulation and requires her to place multiple pillows underneath her head at night. Patient states she has had a productive cough with thick clear mucus. Patient denies fever. Patient denies a history of blood clots or recent long car rides. Patient reports slight swelling to her lower extremities. Patient denies chest pain at this time but reports intermittently over the past 2 weeks she will get a twinge of chest discomfort. TRAVEL OUTSIDE OF THE [place] IN LAST 30 DAYS: No - Related Data Allergies/Adverse Reactions: No Known Allergies Allergy (Verified 10/22/18 12:34) Past Medical History - General Information source: Patient - Social History Smoking Status: Never Smoker Chew tobacco use (# tins/day): No Frequency of alcohol use: None Drug Abuse: None Lives with: Spouse/Significant other Family History: None Patient has suicidal ideation: No Patient has homicidal ideation: No - Past Medical History Cardiac Medical History: Reports: Hx Congestive Heart Failure, Hx Hypertension Pulmonary Medical History: Reports: None EENT Medical History: Reports: None Neurological Medical History: Reports: None Endocrine Medical History: Reports: None Renal/ Medical History: Reports: None. Denies: Hx Peritoneal Dialysis Malignancy Medical History: Reports: None GI Medical History: Reports: None Musculoskeletal Medical History: Reports None Skin Medical History: Reports None Psychiatric Medical History: Reports: None Traumatic Medical History: Reports: None Infectious Medical History: Reports: None Past Surgical History: Reports: Hx Section, Hx Orthopedic Surgery - L elbow Review of Systems - Review of Systems Constitutional: No symptoms reported EENT: No symptoms reported Cardiovascular: See HPI Respiratory: See HPI Gastrointestinal: No symptoms reported Genitourinary: No symptoms reported Female Genitourinary: No symptoms reported Musculoskeletal: No symptoms reported Skin: No symptoms reported Hematologic/Lymphatic: No symptoms reported Neurological/Psychological: No symptoms reported Physical Exam - Vital signs Vitals: Temp Pulse Resp BP Pulse Ox 97.3 F 127 H 20 184/129 H 99 10/22/18 12:40 10/22/18 12:40 10/22/18 12:40 10/22/18 12:40 10/22/18 12:40 Interpretation: Hypertensive, Tachycardic - Notes Notes: GENERAL: Shortness of breath with conversation, well-nourished and in no acute distress. HEAD: Atraumatic, normocephalic. EYES: Pupils equal round and reactive to light, extraocular movements intact, sclera anicteric, conjunctiva are normal. ENT: Nares patent, oropharynx clear without exudates. Moist mucous membranes. NECK: Normal range of motion, supple without lymphadenopathy or JVD. LUNGS: Breath sounds clear to auscultation bilaterally and equal. No wheezes rales or rhonchi. HEART: Regular rate and rhythm without murmurs, rubs or gallops. ABDOMEN: Soft, obese, nontender, normoactive bowel sounds. No guarding, no rebound. No masses appreciated. BACK: No cervical, thoracic, lumbar midline tenderness. No saddle anesthesia, normal distal neurovascular exam. GENITOURINARY: Deferred. EXTREMITIES: Normal range of motion, + 1 pitting edema to LLE. No clubbing or cyanosis. NEUROLOGICAL: Cranial nerves II through XII grossly intact. Normal speech, normal gait. PSYCH: Normal mood, normal affect. SKIN: Warm, Dry, normal turgor, no rashes or lesions noted. Course - Re-evaluation Re-evalutation: 10/22/18 17:07 Patient has a elevated BNP which is consistent with her noncompliance with her diuretic and history of congestive heart failure. Patient's chest x-ray shows mild pulmonary contact congestion with of small pleural effusion. Patient is on 2 L nasal cannula for comfort but was not hypoxic on room air. Patient was initially extremely hypertensive and tachycardic in triage. Patient's d-dimer is elevated, I will obtain a CTA to rule out blood clot. I will give patient IV Lasix. 10/22/18 18:04 Patient has ambulated multiple times to the restroom. Patient reports that she has been urinating but still has shortness of breath with any type of movement. Patient denies chest pain. 10/22/18 18:26 I did speak with Dr. Celeste who states they will admit to the hospital and that Kvng SHAFFER will come see the patient in the ER. Patient made aware of this. - Vital Signs Vital signs: Temp Pulse Resp BP Pulse Ox 97.3 F 108 H 20 179/122 H 97 10/22/18 12:40 10/22/18 14:21 10/22/18 14:21 10/22/18 14:21 10/22/18 16:49 - Laboratory Result Diagrams: 10/22/18 14:30 10/22/18 14:30 Laboratory results interpreted by me: 10/22/18 10/22/18 10/22/18 14:30 14:30 14:30 RDW 16.5 H D-Dimer Chloride 108 H Glucose 112 H NT-Pro-B Natriuret Pep 3730 H 10/22/18 14:30 RDW D-Dimer 0.91 H Chloride Glucose NT-Pro-B Natriuret Pep 10/22/18 17:06 D-dimer is elevated at 0.91. BNP is elevated at 3730. - Diagnostic Test Radiology reviewed: Reports reviewed Radiology results interpreted by me: 10/22/18 18:52 Chest X-Ray 10/22/18 14:18 IMPRESSION: Borderline cardiomegaly with mild pulmonary vascular congestion. Small right pleural effusion. Chest/Abdomen CTA 10/22/18 16:58 IMPRESSION: 1. No pulmonary embolus. No aortic aneurysm or dissection. 2. Findings suggestive of cardiac dysfunction and mild CHF. Bilateral effusions with cardiomegaly. - EKG Interpretation by Me Additional EKG results interpreted by me: 10/22/18 17:51 Patient's EKG shows a sinus tachycardia with a heart rate of 108. Patient's MN interval is 116, QT is 424 and QTC is 569. Patient has a left axis deviation with a left bundle branch block. Patient does have a history of a left bundle branch block that was present on the EKG from earlier this year. Discharge - Discharge Clinical Impression: Shortness of breath CHF (congestive heart failure) Qualifiers: Heart failure type: unspecified Heart failure chronicity: acute on chronic Qualified Code(s): I50.9 - Heart failure, unspecified Condition: Stable Disposition: ADMITTED OBSERVATION Admitting Provider: Mannava (Hospitalist) Unit Admitted: IMCU Referrals: CORRY PACHECO MD [NO LOCAL MD] - Follow up as needed
--- NOTE | 2018-10-22 17:37 | RADIOLOGY REPORT (SQ) ---
EXAM DESCRIPTION: CTA CHEST COMPLETED DATE/TIME: 10/22/2018 5:23 pm REASON FOR STUDY: SOB, elevated d-dimer COMPARISON: None. TECHNIQUE: CT scan of the chest performed using helical scanning technique with dynamic intravenous contrast injection. Images reviewed with lung, soft tissue and bone windows. Reconstructed coronal and sagittal MPR images reviewed. Additional 3 dimensional post-processing performed to develop Maximal Intensity Projection images (NM P). All images stored on PACS. All CT scanners at this facility use dose modulation, iterative reconstruction, and/or weight based d osing when appropriate to reduce radiation dose to as low as reasonably achievable (ALARA). [facility]: Dose Right [facility]: CareDose [facility]: Dose Right [facility]: Teradose 4D [facility]: Clarizen CONTRAST TYPE AND DOSE: contrast/concentration: Isovue 350.00 mg/ml; Total Contrast Delivered: 71.0 ml; Total Saline Delivered: 80.0 ml RENAL FUNCTION: None required. The patient is less than 50 years old. RADIATION DOSE: CT Rad equipment meets quality standard of care and radiation dose reduction techniq ues were employed. CTDIvol: 21.6 - 33.1 mGy. DLP: 809 mGy-cm. . LIMITATIONS: None. FINDINGS: LUNGS AND PLEURA: Small bilateral effusions. AORTA AND GREAT VESSELS: No aneurysm. Contrast bolus not optimized for the aorta. HEART: Cardiomegaly. No significant pericardial effusion. Mild reflux of contrast into minimally di lated hepatic veins. Suggestive of right heart dysfunction. No significant coronary artery calcifica tions. PULMONARY ARTERIES: No emboli visualized in the main pulmonary arteries or the segmental branches. HILAR AND MEDIASTINAL STRUCTURES: Minimal mediastinal and hilar clifton tissue. HARDWARE: None in the chest. UPPER ABDOMEN: No significant findings. Limited exam. THYROID AND OTHER SOFT TISSUES: No masses. No adenopathy. BONES: No acute or significant finding. 3D MIPS: Confirm above findings. OTHER: No other significant finding. IMPRESSION: 1. No pulmonary embolus. No aortic aneurysm or dissection. 2. Findings suggestive of cardiac dysfunction and mild CHF. Bilateral effusions with cardiomegaly. COMMENT: Quality ID # [id number]: Final reports with documentation of one or more dose reduction techniques (e.g., Automated exposure control, adjustment of the mA and/or kV according to patient size, use of iterative reconstruction technique) TECHNICAL DOCUMENTATION: JOB ID: [id number] [employer]- All Rights Reserved Reading location - IP/workstation name: [email or web address]
[2018-10-22] MEDS ORDERED: MAGNESIUM HYDROXIDE SUSP 30 ML UDCUP PO PRN (18:53)
[2018-10-22 20:10] LABS: ARTERIAL BLOOD BASE EXCESS 0.4 mmol/L; ARTERIAL BLOOD H2CO3 1.09 mmol/L (1.05-1.35); ARTERIAL BLOOD HCO3 24.1 mmol/L (20-24); ARTERIAL BLOOD O2 SATURATION 95.4 % (94-98); ARTERIAL BLOOD PCO2 36.1 mmHg (35-45); ARTERIAL BLOOD PH 7.44 (7.35-7.45); ARTERIAL BLOOD PO2 73.5 mmHg (80-100); ARTERIAL BLOOD TOTAL CO2 25.2 mmol/L (21-25)
[2018-10-22 20:12] LABS: INTERNATIONAL RATION (INR) 1.04; PARTIAL THROMBOPLASTIN TIME 28.5 SEC (23.5-35.8); PROTHROMBIN TIME 13.6 SEC (11.4-15.4)
[2018-10-22 20:14] LABS: ARTERIAL BLOOD FIO2 ROOM AIR
[2018-10-22 20:37] LABS: APPEARANCE,URINE CLEAR; BILIRUBIN,URINE NEGATIVE (NEGATIVE); COLOR,URINE STRAW; GLUCOSE, URINE NEGATIVE (NEGATIVE); KETONES,URINE NEGATIVE (NEGATIVE); LEUKOCYTE ESTERASE,URINE NEGATIVE (NEGATIVE); NITRITE,URINE NEGATIVE (NEGATIVE); PROTEIN,URINE NEGATIVE (NEGATIVE); URINE SPECIFIC GRAVITY 1.016; UROBILINOGEN,URINE NEGATIVE mg/dL (<2.0)
--- NOTE | 2018-10-22 21:56 | EKG REPORT ---
SEVERITY:- ABNORMAL ECG - SINUS TACHYCARDIA LEFT BUNDLE BRANCH BLOCK : Confirmed by: Lb Guevara 22-Oct-2018 21:55:46
[2018-10-22] MEDS: LISINOPRIL 10 MG TABLET PO SCH (22:40)
[2018-10-22] MEDS: FUROSEMIDE INJ/PF 40 MG/4 ML SDV IV SCH (22:40)
[2018-10-23 05:02] LABS: ABSOLUTE BASOPHILS # (AUTO) 0.1 10^3/uL (0.0-0.2); ABSOLUTE EOSINOPHILS # (AUTO) 0.2 10^3/uL (0.0-0.6); ABSOLUTE LYMPHOCYTES (AUTO) 2.7 10^3/uL (0.5-4.7); ABSOLUTE MONOCYTES (AUTO) 0.6 10^3/uL (0.1-1.4); ABSOLUTE NEUT (AUTO) 5.7 10^3/uL (1.7-8.2); BASOPHILS % (AUTO) 0.6 % (0-2); HEMATOCRIT 37.1 % (36.0-47.0); HEMOGLOBIN 11.9 g/dL (12.0-15.5); LYMPHOCYTES % (AUTO) 29.4 % (13-45); MEAN CORPUSCULAR HEMOGLOBIN 27.9 pg (27.0-33.4); MEAN CORPUSCULAR HGB CONC 32.1 g/dL (32.0-36.0); MEAN CORPUSCULAR VOLUME 87 fl (80-97); MONOCYTES % (AUTO) 6.6 % (3-13); PLATELET COUNT 156 10^3/uL (150-450); RED BLOOD COUNT 4.27 10^6/uL (3.72-5.28); RED CELL DISTRIBUTION WIDTH 16.2 % (11.5-14.0); SEGMENTED NEUTROPHILS % (AUTO) 61.4 % (42-78); TOTAL CELLS COUNTED % (AUTO) 100 %; WHITE BLOOD COUNT 9.3 10^3/uL (4.0-10.5)
[2018-10-23 05:31] LABS: ANION GAP 7 (5-19); BLOOD UREA NITROGEN 15 mg/dL (7-20); CALCIUM 9.6 mg/dL (8.4-10.2); CARBON DIOXIDE 29 mmol/L (22-30); CHLORIDE 105 mmol/L (98-107); CHOLESTEROL 184.41 mg/dL (0-200); GLUCOSE 99 mg/dL (75-110); POTASSIUM 3.8 mmol/L (3.6-5.0); TRIGLYCERIDES 111 mg/dL (<150)
[2018-10-23 05:42] LABS: DIRECT LDL 99 mg/dL (<100)
--- NOTE | 2018-10-23 06:38 | Progress Note Acknowledgement ---
Progress Note Acknowledgement Progess Note Acknowledgement: I, the undersigned member of the medical staff with appropriate privileges and with supervisory authority over [ PAC ], a dependent practice allied health professional, acknowledge that I have reviewed the progress notes entered on this patient, and in my professional judgment believe that the assessment made and/or any care evidenced was appropriate
--- NOTE | 2018-10-23 06:47 | PDOC H&P ---
History of Present Illness Admission Date/PCP: 10/22/18 19:08 Patient complains of: 48-year-old black female who comes in with 3 weeks of shortness of breath. Patient states that really for the last couple years she is been having episodes of shortness of breath. She states that she is been in the emergency room twice now in the last year for this complaint but never admitted recently back in June she was given a prescription from the emergency room for lisinopril and HCTZ only took it for 2 weeks "the dog ate the medication". She financially has no means to get prescriptions and she does not have a primary care provider. Patient states that for the last 2 to 3 days her shortness breath has been worse patient also complains of some mild chest pain with the shortness of breath. Patient is never had a cardiac work-up nor seen a licensed massage therapist. History of Present Illness: LUIZ MAYEN is a 48 year old female Past Medical History Medical History: None Cardiac Medical History: Reports: Congestive Heart Failure, Hypertension Pulmonary Medical History: Reports: None EENT Medical History: Reports: None Neurological Medical History: Reports: None Endocrine Medical History: Reports: None Renal/ Medical History: Reports: None Malignancy Medical History: Reports: None GI Medical History: Reports: None Musculoskeltal Medical History: Reports: None Skin Medical History: Reports: None Psychiatric Medical History: Reports: None Traumatic Medical History: Reports: None Infectious Medical History: Reports: None Past Surgical History Past Surgical History: Reports: Section, Orthopedic Surgery - L elbow Social History Lives with: Spouse/Significant other Smoking Status: Never Smoker Frequency of Alcohol Use: None Hx Recreational Drug Use: No Drugs: None Hx Prescription Drug Abuse: No Family History Family History: None Parental Family History Reviewed: No Children Family History Reviewed: Yes Sibling(s) Family History Reviewed.: No Medication/Allergy Home Medications: Lisinopril/Hydrochlorothiazide [Lisinopril-Hctz 20-12.5 mg Tab] 1 each PO DAILY 04/01/17 Albuterol Sulfate [Ventolin Hfa 8 gm Mdi (1 Mdi/ER Disp)] 2 puff IH ASDIR PRN #1 inhaler 04/03/18 Hydrochlorothiazide [Hydrodiuril 25 mg Tablet] 25 mg PO QAM #30 tablet 04/03/18 Allergies/Adverse Reactions: No Known Allergies Allergy (Verified 10/22/18 12:34) Review of Systems Constitutional: ABSENT: chills, fever(s), headache(s), weight gain, weight loss Cardiovascular: PRESENT: chest pain Respiratory: PRESENT: dyspnea Gastrointestinal: ABSENT: abdominal pain, constipation, diarrhea, hematemesis, hematochezia, nausea, vomiting Neurological: ABSENT: abnormal gait, abnormal speech, confusion, dizziness, focal weakness, syncope Psychiatric: ABSENT: anxiety, depression, homidical ideation, suicidal ideation Physical Exam Vital Signs: Temp Pulse Resp BP Pulse Ox 97.7 F 86 18 122/77 93 10/23/18 03:40 10/23/18 03:40 10/23/18 03:40 10/23/18 03:40 10/23/18 03:40 Intake & Output 10/21/18 10/22/18 10/23/18 06:59 06:59 06:59 Weight 112.5 kg General appearance: PRESENT: mild distress - Patient is mildly short of breath Head exam: PRESENT: atraumatic, normocephalic Respiratory exam: PRESENT: crackles, other - Slightly labored breathing Cardiovascular exam: PRESENT: RRR. ABSENT: diastolic murmur, rubs, systolic murmur GI/Abdominal exam: PRESENT: normal bowel sounds, soft. ABSENT: distended, guarding, mass, organolmegaly, rebound, tenderness Neurological exam: PRESENT: alert, awake, oriented to person, oriented to place, oriented to time, oriented to situation, CN II-XII grossly intact. ABSENT: motor sensory deficit Psychiatric exam: PRESENT: appropriate affect, normal mood, other - Patient is pleasant. ABSENT: homicidal ideation, suicidal ideation Results Laboratory Results: 10/23/18 04:32 10/23/18 04:32 10/22/18 10/22/18 10/22/18 14:30 14:30 19:30 WBC 10.0 RBC 4.46 Hgb 12.6 Hct 39.1 MCV 88 MCH 28.2 MCHC 32.2 RDW 16.5 H Plt Count 168 Seg Neutrophils % 63.6 Lymphocytes % 30.1 Monocytes % 4.5 Eosinophils % 1.2 Basophils % 0.6 Absolute Neutrophils 6.3 Absolute Lymphocytes 3.0 Absolute Monocytes 0.5 Absolute Eosinophils 0.1 Absolute Basophils 0.1 Carbonic Acid 1.09 HCO3/H2CO3 Ratio 22:1 ABG pH 7.44 ABG pCO2 36.1 ABG pO2 73.5 L ABG HCO3 24.1 H ABG O2 Saturation 95.4 ABG Base Excess 0.4 FiO2 ROOM AIR Sodium 142.6 Potassium 4.4 Chloride 108 H Carbon Dioxide 25 Anion Gap 10 BUN 15 Creatinine 0.83 Est GFR ( Amer) > 60 Est GFR (Non-Af Amer) > 60 Glucose 112 H Calcium 10.0 Magnesium Total Bilirubin 0.9 AST 21 ALT 31 Alkaline Phosphatase 85 Total Protein 7.8 Albumin 4.5 Triglycerides Cholesterol LDL Cholesterol Direct VLDL Cholesterol HDL Cholesterol Urine Color Urine Appearance Urine pH Ur Specific [place] Urine Protein Urine Glucose (UA) Urine Ketones Urine Blood Urine Nitrite Ur Leukocyte Esterase Urine WBC (Auto) Urine RBC (Auto) 10/22/18 10/23/18 10/23/18 20:20 04:32 04:32 WBC 9.3 RBC 4.27 Hgb 11.9 L Hct 37.1 MCV 87 MCH 27.9 MCHC 32.1 RDW 16.2 H Plt Count 156 Seg Neutrophils % 61.4 Lymphocytes % 29.4 Monocytes % 6.6 Eosinophils % 2.0 Basophils % 0.6 Absolute Neutrophils 5.7 Absolute Lymphocytes 2.7 Absolute Monocytes 0.6 Absolute Eosinophils 0.2 Absolute Basophils 0.1 Carbonic Acid HCO3/H2CO3 Ratio ABG pH ABG pCO2 ABG pO2 ABG HCO3 ABG O2 Saturation ABG Base Excess FiO2 Sodium 141.2 Potassium 3.8 Chloride 105 Carbon Dioxide 29 Anion Gap 7 BUN 15 Creatinine 0.85 Est GFR ( Amer) > 60 Est GFR (Non-Af Amer) > 60 Glucose 99 Calcium 9.6 Magnesium 2.1 Total Bilirubin AST ALT Alkaline Phosphatase Total Protein Albumin Triglycerides 111 Cholesterol 184.41 LDL Cholesterol Direct 99 VLDL Cholesterol 22.0 HDL Cholesterol 46 Urine Color STRAW Urine Appearance CLEAR Urine pH 5.0 Ur Specific [place] 1.016 Urine Protein NEGATIVE Urine Glucose (UA) NEGATIVE Urine Ketones NEGATIVE Urine Blood NEGATIVE Urine Nitrite NEGATIVE Ur Leukocyte Esterase NEGATIVE Urine WBC (Auto) 1 Urine RBC (Auto) 0 10/22/18 10/22/18 10/22/18 14:30 14:30 18:00 Creatine Kinase 72 CK-MB (CK-2) 1.04 Troponin I 0.017 0.024 NT-Pro-B Natriuret Pep 3730 H 10/23/18 04:32 Creatine Kinase CK-MB (CK-2) Troponin I NT-Pro-B Natriuret Pep 4100 H Impressions: Chest X-Ray 10/22/18 14:18 IMPRESSION: Borderline cardiomegaly with mild pulmonary vascular congestion. Small right pleural effusion. Chest/Abdomen CTA 10/22/18 16:58 IMPRESSION: 1. No pulmonary embolus. No aortic aneurysm or dissection. 2. Findings suggestive of cardiac dysfunction and mild CHF. Bilateral effusions with cardiomegaly. Assessment and Plan - Diagnosis (1) Non-compliance Is this a current diagnosis for this admission?: Yes Plan: 10/22/2018 due to patient's financial situation she is unable to afford her medications. She also states that she does not have a primary care provider. (2) CHF (congestive heart failure) Qualifiers: Heart failure type: unspecified Heart failure chronicity: acute on chronic Qualified Code(s): I50.9 - Heart failure, unspecified Is this a current diagnosis for this admission?: Yes Plan: 10/22/2018 T scan of the chest shows no evidence of a PE shows however mild cardiomyopathy and mild congestive heart failure. Patient will be put on diuretics and LUKE inhibitors.. Patient will be seen in consult by cardiology as well as have an echo. (3) Shortness of breath Is this a current diagnosis for this admission?: Yes Plan: 10/22/2018 patient's shortness of breath is secondary to her congestive heart failure. Will be addressed in the next day or 2 during her hospitalization with diuretics. Patient will also be seen by cardiology. - Time Time Spent with patient: 35 or more minutes
--- NOTE | 2018-10-23 08:49 | PDOC PROGRESS REPORT ---
Subjective Progress Note for:: 10/23/18 Subjective:: 10/23/2018. Patient's vital signs revealed a blood pressure to be significantly improved 132/82 O2 sats 96% on room air her blood pressure in the emergency room was 184/129. Patient is sitting up in the chair eating breakfast with no signs of respiratory distress. Going to decrease her diuretics slightly keep her on the lisinopril. She is scheduled to get an echo today as well as see cardiology. I may end up discharging her today still on cardiology's recommendation. Patient appears medically stable and significantly improved from yesterday evening admission. Reason For Visit: HEART FAILURE Physical Exam Vital Signs: Temp Pulse Resp BP Pulse Ox 97.9 F 93 17 132/82 H 96 10/23/18 07:45 10/23/18 07:45 10/23/18 07:45 10/23/18 07:45 10/23/18 07:45 Intake & Output 10/22/18 10/23/18 10/24/18 06:59 06:59 06:59 Output Total 1100 Balance -1100 Weight 112.4 kg General appearance: PRESENT: no acute distress, well-developed, well-nourished Respiratory exam: PRESENT: crackles - Mild in both bases Cardiovascular exam: PRESENT: RRR. ABSENT: diastolic murmur, rubs, systolic murmur Neurological exam: PRESENT: alert, awake, oriented to person, oriented to place, oriented to time, oriented to situation, CN II-XII grossly intact. ABSENT: motor sensory deficit Psychiatric exam: PRESENT: appropriate affect, normal mood, other - Pleasant satisfied with care. ABSENT: homicidal ideation, suicidal ideation Results Laboratory Results: 10/23/18 04:32 10/23/18 04:32 10/22/18 10/22/18 10/22/18 14:30 14:30 19:30 WBC 10.0 RBC 4.46 Hgb 12.6 Hct 39.1 MCV 88 MCH 28.2 MCHC 32.2 RDW 16.5 H Plt Count 168 Seg Neutrophils % 63.6 Lymphocytes % 30.1 Monocytes % 4.5 Eosinophils % 1.2 Basophils % 0.6 Absolute Neutrophils 6.3 Absolute Lymphocytes 3.0 Absolute Monocytes 0.5 Absolute Eosinophils 0.1 Absolute Basophils 0.1 Carbonic Acid 1.09 HCO3/H2CO3 Ratio 22:1 ABG pH 7.44 ABG pCO2 36.1 ABG pO2 73.5 L ABG HCO3 24.1 H ABG O2 Saturation 95.4 ABG Base Excess 0.4 FiO2 ROOM AIR Sodium 142.6 Potassium 4.4 Chloride 108 H Carbon Dioxide 25 Anion Gap 10 BUN 15 Creatinine 0.83 Est GFR ( Amer) > 60 Est GFR (Non-Af Amer) > 60 Glucose 112 H Calcium 10.0 Magnesium Total Bilirubin 0.9 AST 21 ALT 31 Alkaline Phosphatase 85 Total Protein 7.8 Albumin 4.5 Triglycerides Cholesterol LDL Cholesterol Direct VLDL Cholesterol HDL Cholesterol Urine Color Urine Appearance Urine pH Ur Specific [place] Urine Protein Urine Glucose (UA) Urine Ketones Urine Blood Urine Nitrite Ur Leukocyte Esterase Urine WBC (Auto) Urine RBC (Auto) 10/22/18 10/23/18 10/23/18 20:20 04:32 04:32 WBC 9.3 RBC 4.27 Hgb 11.9 L Hct 37.1 MCV 87 MCH 27.9 MCHC 32.1 RDW 16.2 H Plt Count 156 Seg Neutrophils % 61.4 Lymphocytes % 29.4 Monocytes % 6.6 Eosinophils % 2.0 Basophils % 0.6 Absolute Neutrophils 5.7 Absolute Lymphocytes 2.7 Absolute Monocytes 0.6 Absolute Eosinophils 0.2 Absolute Basophils 0.1 Carbonic Acid HCO3/H2CO3 Ratio ABG pH ABG pCO2 ABG pO2 ABG HCO3 ABG O2 Saturation ABG Base Excess FiO2 Sodium 141.2 Potassium 3.8 Chloride 105 Carbon Dioxide 29 Anion Gap 7 BUN 15 Creatinine 0.85 Est GFR ( Amer) > 60 Est GFR (Non-Af Amer) > 60 Glucose 99 Calcium 9.6 Magnesium 2.1 Total Bilirubin AST ALT Alkaline Phosphatase Total Protein Albumin Triglycerides 111 Cholesterol 184.41 LDL Cholesterol Direct 99 VLDL Cholesterol 22.0 HDL Cholesterol 46 Urine Color STRAW Urine Appearance CLEAR Urine pH 5.0 Ur Specific [place] 1.016 Urine Protein NEGATIVE Urine Glucose (UA) NEGATIVE Urine Ketones NEGATIVE Urine Blood NEGATIVE Urine Nitrite NEGATIVE Ur Leukocyte Esterase NEGATIVE Urine WBC (Auto) 1 Urine RBC (Auto) 0 10/22/18 10/22/18 10/22/18 14:30 14:30 18:00 Creatine Kinase 72 CK-MB (CK-2) 1.04 Troponin I 0.017 0.024 NT-Pro-B Natriuret Pep 3730 H 10/23/18 04:32 Creatine Kinase CK-MB (CK-2) Troponin I NT-Pro-B Natriuret Pep 4100 H Impressions: Chest X-Ray 10/22/18 14:18 IMPRESSION: Borderline cardiomegaly with mild pulmonary vascular congestion. Small right pleural effusion. Chest/Abdomen CTA 10/22/18 16:58 IMPRESSION: 1. No pulmonary embolus. No aortic aneurysm or dissection. 2. Findings suggestive of cardiac dysfunction and mild CHF. Bilateral effusions with cardiomegaly. Assessment and Plan - Diagnosis (1) Non-compliance Is this a current diagnosis for this admission?: Yes Plan: 10/22/2018 due to patient's financial situation she is unable to afford her medications. She also states that she does not have a primary care provider. 10/23/2018 not an issue here in the hospital. Patient understands she will need to get her prescriptions filled when she leaves the hospital and take them regularly or she will end up back in the hospital. (2) CHF (congestive heart failure) Qualifiers: Heart failure type: unspecified Heart failure chronicity: acute on chronic Qualified Code(s): I50.9 - Heart failure, unspecified Is this a current diagnosis for this admission?: Yes Plan: 10/22/2018 CT scan of the chest shows no evidence of a PE shows however mild cardiomyopathy and mild congestive heart failure. Patient will be put on diuretics and LUKE inhibitors.. Patient will be seen in consult by cardiology as well as have an echo. 10/23/2018 patient is significantly improved this morning, talking in full sentences. Sitting up in the chair eating breakfast. No signs or respiratory distress. (3) Shortness of breath Is this a current diagnosis for this admission?: Yes Plan: 10/22/2018 patient's shortness of breath is secondary to her congestive heart fa ilure. Will be addressed in the next day or 2 during her hospitalization with diuretics. Patient will also be seen by cardiology. 10/23/2018 O2 sat 96% on room air. Respirations 14 and unlabored no evidence of shortness of breath today - Time Time Spent with patient: 15-24 minutes
[2018-10-23] MEDS: ENOXAPARIN SODIUM INJ 40 MG/0.4 ML DISP.SYRIN SUBCUT SCH (10:19)
[2018-10-23] MEDS: FUROSEMIDE INJ/PF 40 MG/4 ML SDV IV SCH ×2 (10:24→21:16)
[2018-10-23] MEDS: LISINOPRIL 10 MG TABLET PO SCH ×2 (10:24→21:16)
[2018-10-23] MEDS: DOCUSATE SODIUM 100 MG CAPSULE PO SCH (10:24)
--- NOTE | 2018-10-23 22:01 | XCELERA REPORT ---
[address] [address] Transthoracic Echocardiogram Report Name: LUIZ MAYEN Age: 48 yrs Gender: Female : 1970 Patient Status: Inpatient Patient Location: [address] [place], [place] [id number] Study Date: 10/23/2018 11:05 AM Height: 65 in Weight: 248 lb BSA: 2.2 m2 Procedure: A two-dimensional transthoracic echocardiogram with color flow Doppler was performed. The study was technically difficult with many images being suboptimal in quality. POoor endocardial visualisation. Reason For Study: chf History: CHF. Ordering Physician: SHANE ESPINOZA Performed By: Gray Delvalle Interpretation Summary POoor endocardial visualisation CHF The left ventricle is moderately dilated. There is normal left ventricular wall thickness. LV EF is 35% to 40% Left ventricular systolic function is moderately reduced. Doppler measurements suggest impaired left ventricular relaxation, which is associated with grade I/IV or mild diastolic dysfunction By tissue doppler. There is moderate global hypokinesis of the left ventricle. There is no thrombus. Probably no ASD,VSD,or PFO seen. The right atrium is normal. The left atrial size is normal. There is no evidence of mitral valve prolapse. There is no vegetation seen on the mitral valve. There is no mitral valve stenosis. There is a trace to mild amount of mitral regurgitation There is no aortic valvular vegetation. There is no aortic valve stenosis There is no LVOT obstruction. No aortic regurgitation is present. There is no tricuspid stenosis. There is a mild amount of tricuspid regurgitation RVSP is 27 to 32 mm of Hg , with RA mean of 5 to 10.Hence no significant pulmonary hypertebsion. There is no pulmonic valvular stenosis. Trace to mild VA. The aortic root is normal size. The inferior vena cava appeared normal and decreased > 50% with respiration (RAP 5-10 mmHg) There is no pericardial effusion. MMode/2D Measurements & Calculations RVDd: 4.1 cm LVIDd: 6.0 cm FS: 17.4 % Ao root diam: 2.8 cm IVSd: 0.95 cm LVIDs: 4.9 cm EDV(Teich): LVPWd: 1.3 cm 177.6 ml Ao root area: ESV(Teich): 6.0 cm2 114.3 ml LA dimension: EF(Teich): 35.6 % 4.5 cm LVLd ap4: 9.6 cm SV(MOD-sp4): EDV(MOD-sp4): 74.0 ml 225.0 ml LVLs ap4: 8.5 cm ESV(MOD-sp4): 151.0 ml EF(MOD-sp4): 32.9 % Doppler Measurements & Calculations MV E max meghan: MV P1/2t max meghan: Ao V2 max: LV V1 max P.6 cm/sec 126.1 cm/sec 141.9 cm/sec 6.3 mmHg MV A max meghan: MV P1/2t: 53.6 msec Ao max PG: LV V1 max: 91.8 cm/sec MVA(P1/2t): 4.1 cm2 8.1 mmHg 125.9 cm/sec MV E/A: 1.2 MV dec slope: 688.7 cm/sec2 MV dec time: 0.17 sec PA V2 max: PI end-d meghan: TR max meghan: MV P1/2t-pr_phl: 83.4 cm/sec 108.6 cm/sec 233.5 cm/sec 53.6 msec PA max P.8 mmHg TR max P.8 mmHg Left Ventricle The left ventricle is moderately dilated. There is normal left ventricular wall thickness. LV EF is 35% to 40%. Left ventricular systolic function is moderately reduced. Doppler measurements suggest impaired left ventricular relaxation, which is associated with grade I/IV or mild diastolic dysfunction. By tissue doppler. There is moderate global hypokinesis of the left ventricle. There is no thrombus. Probably no ASD,VSD,or PFO seen. Right Ventricle The right ventricle is not well visualized secondary to technical limitations. Atria The right atrium is normal. The left atrial size is normal. Mitral Valve There is no evidence of mitral valve prolapse. There is no vegetation seen on the mitral valve. There is no mitral valve stenosis. There is a trace to mild amount of mitral regurgitation. Aortic Valve There is no aortic valvular vegetation. There is no aortic valve stenosis. There is no LVOT obstruction. No aortic regurgitation is present. Tricuspid Valve There is no tricuspid stenosis. There is a mild amount of tricuspid regurgitation. RVSP is 27 to 32 mm of Hg , with RA mean of 5 to 10.Hence no significant pulmonary hypertebsion. Pulmonic Valve There is no pulmonic valvular stenosis. Trace to mild VA. Great Vessels The aortic root is normal size. The inferior vena cava appeared normal and decreased > 50% with respiration (RAP 5-10 mmHg). Effusions There is no pericardial effusion. : SHANE ESPINOZA > Azra Roper
[2018-10-24] MEDS: ENOXAPARIN SODIUM INJ 40 MG/0.4 ML DISP.SYRIN SUBCUT SCH (10:42)
[2018-10-24] MEDS: DOCUSATE SODIUM 100 MG CAPSULE PO SCH (10:42)
[2018-10-24] MEDS: FUROSEMIDE INJ/PF 40 MG/4 ML SDV IV SCH ×2 (10:42→21:35)
[2018-10-24] MEDS: METOPROLOL SUCCINATE 25 MG TAB.SR.24H PO SCH ×2 (10:42→21:34)
[2018-10-24] MEDS: LISINOPRIL 10 MG TABLET PO SCH ×2 (10:42→21:34)
--- NOTE | 2018-10-24 23:13 | Progress Note ---
Provider Note Provider Note: CARDIOLOGY PROGRESS NOTE by Dr. Azra Dickerson on 10/24/2018. SUBJECTIVE: The patient states with the current medical regimen her orthopnea is resolved. She has no PND. There is no chest pain or discomfort. There is no shortness of breath at rest. Her echocardiogram shows moderately reduced LV ejection fraction. She denies any palpitations. There is no chest pain or discomfort. There is no atrial or ventricular arrhythmia seen on the monitor. There is no pedal edema. PHYSICAL EXAMINATION: The patient is morbidly obese. In no acute distress. She is well-groomed. Selected Entries 10/24/18 11:12 Temperature 98.0 F Temperature Oral Source Pulse Rate 81 Respiratory 18 Rate Blood Pressure 133/82 H Blood Pressure 99 Mean BP Location Right Arm BP Position Supine O2 Sat by Pulse 96 Oximetry Oxygen Delivery Room Air Method HEAD: Is atraumatic normocephalic. EYES: Pupils are equal round regular reactive light accommodation. ENT is negative. NECK: Is supple. There is no JVD. Carotids are equal there is no bruits. There is no lymphadenopathy. There is no goiter. There is no accessory muscles of respiration in use. Trachea central. LUNGS: Clear to auscultation percussion. HEART: S1-S2 is heard. There is no S3 gallop. There is no S4 gallop. There is systolic murmur the left sternal border and the apex. There is no rub. ABDOMEN: Is obese. There is no paraspinal megaly. Bowel sounds are well heard. There is no tender areas masses. EXTREMITIES: Femorals are deep. Femorals are decreased. Leg pulses are well felt. There is no pedal edema. There is no DVT or cellulitis. There is no calf tenderness. OVERLAY OPERATOR: The patient conscious awake alert oriented x3 with no focal deficits. PSYCHIATRIC: The patient judgment insight are intact her affect is normal. Is 24-hour intake is 1240 mL. Output is thousand 1500 mL. Echocardiogram shows dilated left ventricle with moderately reduced LV ejection fraction 35 to 40%. Right ventricle systolic pressure is 27 to 32 mmHg. There is no severe valvular pathology. IMPRESSION/RECOMMENDATION: 1. Acute on chronic systolic heart failure: Most likely this is due to cardia myopathy sustained due to noncompliance with medication for her blood blood pressure. We will switch the patient's IV Lasix to p.o. Lasix. 2. Hypertension: Blood pressure much improved. 3. Cardiomyopathy with moderately reduced LV ejection fraction. Hopefully the patient's LV ejection fraction will improve with current treatment. We will increase the patient's Toprol-XL. Continue lisinopril. 4. Symptoms suggestive of obstructive sleep apnea: Patient recommended to have a outpatient sleep study. 5. Morbid obesity: Later once the cardiac status is stabilized. Would consult the patient to have an outpatient weight loss program and exercise. Later would recommend that the patient have IV Lexiscan cardiac stress test. Echo findings discussed with the patient. Medications reviewed. Medication adjusted. Management plan discussed with attending physician on the case. Medical decision making is of high complexity. 40 minutes spent on the patient with more than 50% of time spent direct patient care.
--- NOTE | 2018-10-25 09:05 | PDOC PROGRESS REPORT ---
Subjective Progress Note for:: 10/24/18 Subjective:: This is a 48 yr old female with HTN and noncompliance, reported recent previous diagnosis of CHF who presented with SOB. She was admitted for CHF exacerbation. She was started on IV Lasix. No acute event overnight. She says she feels much better today. She is saturat ing well on room air. Reason For Visit: HEART FAILURE Physical Exam Vital Signs: Temp Pulse Resp BP Pulse Ox 98.0 F 81 18 133/82 H 96 10/24/18 11:12 10/24/18 11:12 10/24/18 11:12 10/24/18 11:12 10/24/18 11:12 Intake & Output 10/23/18 10/24/18 10/25/18 06:59 06:59 06:59 Intake Total 1240 720 Output Total 1100 1500 Balance -1100 -260 720 Weight 247 lb 12.793 oz 243 lb 9.773 oz General appearance: PRESENT: no acute distress, well-developed, well-nourished Head exam: PRESENT: atraumatic, normocephalic Eye exam: PRESENT: conjunctiva pink, EOMI, PERRLA. ABSENT: scleral icterus Ear exam: PRESENT: normal external ear exam Mouth exam: PRESENT: moist, tongue midline Neck exam: ABSENT: carotid bruit, JVD, lymphadenopathy, thyromegaly Respiratory exam: PRESENT: clear to auscultation bria. ABSENT: rales, rhonchi, wheezes Cardiovascular exam: PRESENT: RRR. ABSENT: diastolic murmur, rubs, systolic murmur Pulses: PRESENT: normal dorsalis pedis pul GI/Abdominal exam: PRESENT: normal bowel sounds, soft. ABSENT: distended, guarding, mass, organolmegaly, rebound, tenderness Rectal exam: PRESENT: deferred Extremities exam: PRESENT: +1 edema Neurological exam: PRESENT: alert, awake, oriented to person, oriented to place, oriented to time, oriented to situation, CN II-XII grossly intact. ABSENT: motor sensory deficit Results Laboratory Results: 10/23/18 04:32 10/23/18 04:32 10/22/18 10/22/18 10/22/18 14:30 14:30 18:00 Creatine Kinase 72 CK-MB (CK-2) 1.04 Troponin I 0.017 0.024 NT-Pro-B Natriuret Pep 3730 H 10/23/18 04:32 Creatine Kinase CK-MB (CK-2) Troponin I NT-Pro-B Natriuret Pep 4100 H Impressions: Chest X-Ray 10/22/18 14:18 IMPRESSION: Borderline cardiomegaly with mild pulmonary vascular congestion. Small right pleural effusion. Chest/Abdomen CTA 10/22/18 16:58 IMPRESSION: 1. No pulmonary embolus. No aortic aneurysm or dissection. 2. Findings suggestive of cardiac dysfunction and mild CHF. Bilateral effusions with cardiomegaly. Assessment and Plan - Diagnosis (1) CHF (congestive heart failure) Qualifiers: Heart failure type: unspecified Heart failure chronicity: acute on chronic Qualified Code(s): I50.9 - Heart failure, unspecified Is this a current diagnosis for this admission?: Yes Plan: Improving. On IV Lasix. Echo showed reduced EF of 35-40%. Continue lisinopril and Toprol. Cardiology following.
[2018-10-25] MEDS: DOCUSATE SODIUM 100 MG CAPSULE PO SCH (09:26)
[2018-10-25] MEDS: FUROSEMIDE 20 MG TABLET PO SCH (09:26)
[2018-10-25] MEDS: LISINOPRIL 10 MG TABLET PO SCH ×2 (09:26→21:45)
[2018-10-25] MEDS: ENOXAPARIN SODIUM INJ 40 MG/0.4 ML DISP.SYRIN SUBCUT SCH (09:26)
[2018-10-25] MEDS: METOPROLOL SUCCINATE 25 MG TAB.SR.24H PO SCH ×2 (09:26→21:45)
--- NOTE | 2018-10-25 11:34 | Progress Note ---
Provider Note Provider Note: CARDIOLOGY PROGRESS NOTE by Dr. Azra Dickerson on 10/25/2018. SUBJECTIVE: The patient denies any chest pain or discomfort. There is no shortness of breath. There is no PND orthopnea. There is no atrial or ventricular arrhythmia seen on the monitor. There is no leg edema. There is no TIA CVA symptoms. The patient denies any palpitations, near-syncope or syncope or dizziness. PHYSICAL EXAMINATION: The patient is morbidly obese. In no acute distress. She is well-groomed. Selected Entries 10/25/18 07:36 Temperature 97.9 F Temperature Oral Source Pulse Rate 94 Respiratory 19 Rate Blood Pressure 106/80 Blood Pressure 88 Mean BP Location Left Arm BP Position Sitting O2 Sat by Pulse 96 Oximetry Oxygen Delivery Room Air Method HEAD: Is atraumatic normocephalic. EYES: Pupils are equal round regular reactive light accommodation. ENT is negative. NECK: Is supple. There is no JVD. Carotids are equal there is no bruits. There is no lymphadenopathy. There is no goiter. There is no accessory muscles of respiration in use. Trachea central. LUNGS: Clear to auscultation percussion. HEART: S1-S2 is heard. There is no S3 gallop. There is no S4 gallop. There is systolic murmur the left sternal border and the apex. There is no rub. ABDOMEN: Is obese. Th ere is no paraspinal megaly. Bowel sounds are well heard. There is no tender areas masses. EXTREMITIES: Femorals are deep. Femorals are decreased. Leg pulses are well felt. There is no pedal edema. There is no DVT or cellulitis. There is no calf tenderness. 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 PSYCHIATRIC: The patient judgment insight are intact her affect is normal. Chest X-Ray 10/22/18 14:18 IMPRESSION: Borderline cardiomegaly with mild pulmonary vascular congestion. Small right pleural effusion. Chest/Abdomen CTA 10/22/18 16:58 IMPRESSION: 1. No pulmonary embolus. No aortic aneurysm or dissection. 2. Findings suggestive of cardiac dysfunction and mild CHF. Bilateral effusions with cardiomegaly. MPRESSION/RECOMMENDATION: 1. Acute on chronic systolic heart failure: Most likely this is due to cardia myopathy sustained due to noncompliance with medication for her blood blood pressure. At present heart failure is well compensated. Continue the patient on current medication including p.o. Lasix. 2. Hypertension: Blood pressure is very well controlled in light of her c ardiomyopathy 3. Cardiomyopathy with moderately reduced LV ejection fraction. Hopefully the patient's LV ejection fraction will improve with current treatment. Continue lisinopril, and Toprol-XL. 4. Symptoms suggestive of obstructive sleep apnea: Patient recommended to have a outpatient sleep study. 5. Multiple CAD risk factors in this patient for coronary artery disease with reduced LV function. Hence we will schedule the patient for IV Lexiscan Cardiolite stress test tomorrow morning. The procedure with the benefits side effects and complications have all been discussed in detail. 6. Morbid obesity: Later once the cardiac status is stabilized. Advised the patient to have an outpatient weight loss program and exercise. Medications reviewed. Medication adjusted. Management plan discussed with attending physician on the case. Medical decision making is of high complexity. 40 minutes spent on the patient with more than 50% of time spent direct patient care.
--- NOTE | 2018-10-25 14:42 | PDOC PROGRESS REPORT ---
Subjective Progress Note for:: 10/25/18 Subjective:: This is a 48 yr old female with HTN and noncompliance, reported recent previous diagnosis of CHF who presented with SOB. She was admitted for CHF exacerbation. She was started on IV Lasix. 10/25: No acute event overnight. Her CHF exacerbation is resolved. She denies any shortness of breath and feels like she is at her baseline. She is saturating well on room air. Cardiology has ordered for a stress test tomorrow morning. Anticipating discharge after normal stress test. Reason For Visit: HEART FAILURE Physical Exam Vital Signs: Temp Pulse Resp BP Pulse Ox 97.4 F 68 16 110/81 97 10/25/18 11:39 10/25/18 11:39 10/25/18 11:39 10/25/18 11:39 10/25/18 11:39 Intake & Output 10/24/18 10/25/18 10/26/18 06:59 06:59 06:59 Intake Total 1240 1080 480 Output Total 1500 2800 Balance -260 -1720 480 Weight 243 lb 9.773 oz 241 lb 13.553 oz General appearance: PRESENT: no acute distress, well-developed, well-nourished Head exam: PRESENT: atraumatic, normocephalic Eye exam: PRESENT: conjunctiva pink, EOMI, PERRLA. ABSENT: scleral icterus Ear exam: PRESENT: normal external ear exam Mouth exam: PRESENT: moist, tongue midline Neck exam: ABSENT: carotid bruit, JVD, lymphadenopathy, thyromegaly Respiratory exam: PRESENT: clear to auscultation bria. ABSENT: rales, rhonchi, wheezes Cardiovascular exam: PRESENT: RRR. ABSENT: diastolic murmur, rubs, systolic murmur GI/Abdominal exam: PRESENT: normal bowel sounds, soft. ABSENT: distended, guarding, mass, organolmegaly, rebound, tenderness Rectal exam: PRESENT: deferred Extremities exam: PRESENT: full ROM. ABSENT: calf tenderness, clubbing, pedal edema Neurological exam: PRESENT: alert, awake, oriented to person, oriented to place, oriented to time, oriented to situation, CN II-XII grossly intact. ABSENT: motor sensory deficit Psychiatric exam: PRESENT: appropriate affect, normal mood. ABSENT: homicidal ideation, suicidal ideation Results Laboratory Results: 10/23/18 04:32 10/23/18 04:32 10/22/18 10/22/18 10/22/18 14:30 14:30 18:00 Creatine Kinase 72 CK-MB (CK-2) 1.04 Troponin I 0.017 0.024 NT-Pro-B Natriuret Pep 3730 H 10/23/18 04:32 Creatine Kinase CK-MB (CK-2) Troponin I NT-Pro-B Natriuret Pep 4100 H Impressions: Chest X-Ray 10/22/18 14:18 IMPRESSION: Borderline cardiomegaly with mild pulmonary vascular congestion. Small right pleural effusion. Chest/Abdomen CTA 10/22/18 16:58 IMPRESSION: 1. No pulmonary embolus. No aortic aneurysm or dissection. 2. Findings suggestive of cardiac dysfunction and mild CHF. Bilateral effusions with cardiomegaly. Assessment and Plan - Diagnosis (1) Acute CHF (congestive heart failure) Qualifiers: Heart failure type: systolic Qualified Code(s): I50.21 - Acute systolic (congestive) heart failure Is this a current diagnosis for this admission?: Yes Plan: Resolved. Echo showed reduced EF of 35-40%. Continue lisinopril and Toprol. Continue PO Lasix. Anticipating discharge after normal stress test. (2) HTN (hypertension) Is this a current diagnosis for this admission?: Yes Plan: Continue lisinopril and Toprol. - Time Time Spent with patient: 15-24 minutes
[2018-10-26] MEDS ORDERED: REGADENOSON INJ 0.4 MG/5 ML DISP.SYRIN IV ONE (07:38)
[2018-10-26] MEDS: LISINOPRIL 10 MG TABLET PO SCH (11:57)
[2018-10-26] MEDS: METOPROLOL SUCCINATE 25 MG TAB.SR.24H PO SCH (11:57)
[2018-10-26] MEDS: FUROSEMIDE 20 MG TABLET PO SCH (11:57)
[2018-10-26] MEDS: ENOXAPARIN SODIUM INJ 40 MG/0.4 ML DISP.SYRIN SUBCUT SCH (11:58)
[2018-10-26] MEDS: DOCUSATE SODIUM 100 MG CAPSULE PO SCH (12:34)
[2018-10-26 15:43] VITALS: BP 110/78
--- NOTE | 2018-10-26 16:34 | PDOC DISCHARGE SUMMARY ---
General - Admit/Disc Date/PCP Admission Date/Primary Care Provider: 10/22/18 19:08 Discharge Date: 10/26/18 - Discharge Diagnosis (1) Acute CHF (congestive heart failure) Is this a current diagnosis for this admission?: Yes (2) HTN (hypertension) Is this a current diagnosis for this admission?: Yes - Additional Information Discharge Diet: Cardiac Discharge Activity: Activity As Tolerated, Balance Activity w/Rest, Weigh Daily Prescriptions: Furosemide [Lasix 20 mg Tablet] 20 mg PO DAILY #30 tablet Lisinopril [Prinivil 10 mg Tablet] 10 mg PO Q12 #30 tablet Metoprolol Succinate [Toprol Xl 25 mg Tab.sr] 50 mg PO Q12 #60 tab.sr.24h Varenicline Tartrate [Chantix] 1 each PO DAILY #30 tab.ds.pk Home Medications: Furosemide [Lasix 20 mg Tablet] 20 mg PO DAILY #30 tablet 10/26/18 Lisinopril [Prinivil 10 mg Tablet] 10 mg PO Q12 #30 tablet 10/26/18 Metoprolol Succinate [Toprol Xl 25 mg Tab.sr] 50 mg PO Q12 #60 tab.sr.24h 10/26/18 Varenicline Tartrate [Chantix] 1 each PO DAILY #30 tab.ds.pk 10/26/18 History of Present Illness History of Present Illness: Admitting hospitalist's H&P: This is a 48-year-old black female who comes in with 3 weeks of shortness of breath. Patient states that really for the last couple years she is been having episodes of shortness of breath. She states that she is been in the emergency room twice now in the last year for this complaint but never admitted recently back in June she was given a prescription from the emergency room for lisinopril and HCTZ only took it for 2 weeks "the dog ate the medication". She financially has no means to get prescriptions and she does not have a primary care provider. Patient states that for the last 2 to 3 days her shortness breath has been worse patient also complains of some mild chest pain with the shortness of breath. 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 Hospital Course Hospital Course: This is a 48 yr old female with HTN and noncompliance, reported recent previous diagnosis of CHF who presented with SOB. She was admitted for CHF exacerbation. She was started on IV Lasix. Her echo showed reduced EF of 35-40%. Patient was also started on LUKE inhibitor and beta-blockers. Patient did significantly improve and returned to her baseline. She did have a stress test which came back normal. Her CHF is likely secondary to chronic uncontrolled hypertension. She will follow-up with cardiology outpatient. On discharge, patient did ask for Chantix to help her quit smoking as she says that nicotine patches do not work for her. Physical Exam Vital Signs: Temp Pulse Resp BP Pulse Ox 97.9 F 78 20 110/78 98 10/26/18 15:19 10/26/18 15:19 10/26/18 15:19 10/26/18 15:19 10/26/18 15:19 Intake & Output 10/25/18 10/26/18 10/27/18 06:59 06:59 06:59 Intake Total 1080 720 480 Output Total 2800 Balance -1720 720 480 Weight 241 lb 13.553 oz 240 lb 4.862 oz General appearance: PRESENT: no acute distress, well-developed, well-nourished Head exam: PRESENT: atraumatic, normocephalic Eye exam: PRESENT: conjunctiva pink, EOMI, PERRLA. ABSENT: scleral icterus Ear exam: PRESENT: normal external ear exam Mouth exam: PRESENT: moist, tongue midline Neck exam: ABSENT: carotid bruit, JVD, lymphadenopathy, thyromegaly Respiratory exam: PRESENT: clear to auscultation bria. ABSENT: rales, rhonchi, wheezes Cardiovascular exam: PRESENT: RRR. ABSENT: diastolic murmur, rubs, systolic murmur Pulses: PRESENT: normal dorsalis pedis pul Vascular exam: PRESENT: normal capillary refill GI/Abdominal exam: PRESENT: normal bowel sounds, soft. ABSENT: distended, guarding, mass, organolmegaly, rebound, tenderness Rectal exam: PRESENT: deferred Extremities exam: PRESENT: calf tenderness Neurological exam: PRESENT: alert, awake, oriented to person, oriented to place, oriented to time, oriented to situation, CN II-XII grossly intact. ABSENT: motor sensory deficit Results Laboratory Results: 10/23/18 04:32 10/23/18 04:32 10/22/18 10/22/18 10/22/18 14:30 14:30 18:00 Creatine Kinase 72 CK-MB (CK-2) 1.04 Troponin I 0.017 0.024 NT-Pro-B Natriuret Pep 3730 H 10/23/18 04:32 Creatine Kinase CK-MB (CK-2) Troponin I NT-Pro-B Natriuret Pep 4100 H Impressions: Chest X-Ray 10/22/18 14:18 IMPRESSION: Borderline cardiomegaly with mild pulmonary vascular congestion. Small right pleural effusion. Chest/Abdomen CTA 10/22/18 16:58 IMPRESSION: 1. No pulmonary embolus. No aortic aneurysm or dissection. 2. Findings suggestive of cardiac dysfunction and mild CHF. Bilateral effusions with cardiomegaly. Qualifiers - * PATIENT BEING DISCHARGED WITH ANY OF THE FOLLOWING DIAGNOSIS: No Acute Heart Failure - Is this a Heart Failure Patient?: Yes Documentation of LVEF assessment?: Yes LVEF < 40%?: Yes-if yes answer questions a through e a) Discharged on ACEI?: Yes b) Discharges on ARB?: No-document contraindications c) Discharged on ARNI?: No-Document Contraindications d) Discharged on evidence-based Beta reymundo(carvedilol, sustained release metoprolol succinate, or bisoprolol)?: Yes e) For LVEF <35%, discharged on Aldosterone antagonist?: N/A (LVEF > or = 35%)
--- NOTE | 2018-10-26 22:21 | Progress Note ---
Provider Note Provider Note: CARDIOLOGY PROGRESS NOTE by Dr. Azra Dickerson on 10/26/2018. SUBJECTIVE: The patient denies any chest pain or discomfort. There is no shortness of breath. There is no PND orthopnea. There is no leg edema. There is no atrial or ventricular arrhythmia seen on the monitor. The patient has no palpitations, dizziness or syncope or near syncope. There is no TIA CVA symptoms. The patient underwent uneventful IV Lexiscan Cardiolite stress test today. Please see report below. PHYSICAL EXAMINATION: The patient is morbidly obese.She is well groomed.In no acute distress. Selected Entries 10/26/18 15:19 Temperature 97.9 F Temperature Axillary Source Pulse Rate 78 Respiratory 20 Rate Blood Pressure 110/78 Blood Pressure 88 Mean BP Location Left Arm BP Position Sitting O2 Sat by Pulse 98 Oximetry Oxygen Delivery Room Air Method HEAD: Is atraumatic normocephalic. EYES: Pupils are equal round regular reactive light accommodation. ENT is negative. NECK: Is supple. There is no JVD. Carotids are equal there is no bruits. There is no lymphadenopathy. There is no goiter. There is no accessory muscles of respiration in use. Trachea central. LUNGS: Clear to auscultation percussion. HEART: S1-S2 is heard. There is no S3 gallop. There is no S4 gallop. There is systolic murmur the left sternal border and the apex. There is no rub. ABDOMEN: Is obese. There is no paraspinal megaly. Bowel sounds are well heard. There is no tender areas masses. EXTREMITIES: Femorals are deep. Femorals are decreased. Leg pulses are well felt. There is no pedal edema. There is no DVT or cellulitis. There is no calf tenderness. 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 PSYCHIATRIC: The patient judgment insight are intact her affect is normal. The patient IV Lexiscan Cardiolite shows no reversible ischemia, and no myocardial infarction/scar. The left ventricle is dilated with significant cardiomyopathy. MPRESSION/RECOMMENDATION: 1. Acute on chronic systolic heart failure: Most likely this is due to cardia myopathy sustained due to noncompliance with medication for her blood blood pressure. At present heart failure is well compensated. Continue the patient on current medication including p.o. Lasix. 2. Hypertension: Blood pressure is very well controlled in light of her cardiomyopathy 3. Cardiomyopathy with moderately reduced LV ejection fraction. Hopefully the patient's LV ejection fraction will improve with current treatment. Continue lisinopril, and Toprol-XL. 4. Symptoms suggestive of obstructive sleep apnea: Patient recommended to have a outpatient sleep study. 5. Multiple CAD risk factors: The patient's IV Lexiscan Cardiolite stress test was negative for ischemia or [place].. 6. Morbid obesity: Later once the cardiac status is stabilized. Advised the patient to have an outpatient weight loss program and exercise Medications reviewed. Management plan discussed with the attending physician. Discussed stress test findings with the patient and with attending physician. Patient cardiac condition is stable. Will discharge the patient home. Of note the patient has no insurance and hence cannot afford LifeVest. I have asked the patient to follow-up with me. My cell phone and contact numbers given to the patient. Will sign off.
--- NOTE | 2018-10-27 14:45 | DRAGON STRESS TEST REPORT ---
Intravenous Lexiscan Cardiolite stress test using single photon emmision computerized tomography. Date of procedure: 10/26/2018. Ordering Provider: Dr. Azra Roper. Patient's status: In the Patient. Indication: Severe LV dysfunction and left bundle branch block pattern on the EKG.. Coronary risk factors: Age, hypertension, and family history of coronary artery disease. Resting EKG: Stress EKG: Non diagnostic of ischemia, 2 existing left bundle branch block pattern. . The patient no chest pain or discomfort, and there were no arrhythmias seen. Reason for termination: Protocol. Conclusions: Normal EKG and hemodynamic response to IV Lexiscan. Nuclear data: At rest the patient was 14.63 given millicuries of technetium 99m sestamibi injected intravenously. As per protocol rest non gated SPECT images were obtained. Subsequently the patient was given intravenous Lexiscan at a dose of 0.4 mg in 5 mL intravenously, followed by flush with normal saline. Subsequently the stress dose of 45.2 millicuries of technetium 99m sestamibi was injected intravenously. As per protocol stress gated images were obtained. Nuclear interpretation: Review of images showed that all segments of the myocardium had normal perfusion at rest, and normal perfusion post stress with IV Lexiscan. All segments of the myocardium had normal thickening by gated study. The left ventricle was dilated in both the rest and stress images, with severe global hypokinesis consistent with cardiomyopathy. T. I D. ratio was normal at 1.14. There is no transient ischemic dilatation of the left ventricle. Computer read rest, and stress left ventricular ejection fraction were 20 %, and 24 %, respectively. Conclusion: 1. There is no scintigraphic evidence of Lexiscan induced myocardial ischemia. 2. There is no scintigraphic evidence of myocardial infarction/scar. 3. 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 Recommendations: 1. Aggressive treatment of cardiomyopathy and hypertension with beta-blockers, LUKE inhibitors and if needed statins and Lasix. 2. Aggressive risk factor modification, and treating the underlying co- morbidities. [facility]
== END 2018-10-26 18:44 | disposition home or self-care (01) | DRG 293 ==
LOC: ER 12:33 → OBSVTOIN 19:08 → EH 19:08 → 3W 22:11
PROVIDERS: ADMIT Family Medicine; ATTEND Internal Medicine
DX: I11.0 Hypertensive heart disease with heart failure (principal); I50.23 Acute on chronic systolic (congestive) heart failure; E66.01 Morbid (severe) obesity due to excess calories; I43 Cardiomyopathy in diseases classified elsewhere; Z79.899 Other long term (current) drug therapy; Z59.9 Problem related to housing and economic circumstances, unspecified; Z91.14 Patient's other noncompliance with medication regimen
CPT/HCPCS: 36415; 71045; 71275; 78452; 80048; 80053; 80061; 81001; 82550; 82553; 82803; 83735; 83880; 84484; 85025; 85379; 85610; 85730; 93005; 93010; 93017; 93306; 96374; 99285; A9500; J1650; J1940; J2785; J3490; Q9969

== ENCOUNTER 2019-02-08 13:43 | Emergency (ER) | payer SELFPAY ==
--- NOTE | 2019-02-08 14:19 | ER Document Report ---
ED Medical Screen (RME) - General Chief Complaint: Breathing Difficulty Stated Complaint: DIFFICULTY BREATHING Time Seen by Provider: 02/08/19 14:02 Notes: 48-year-old female with HFrEF approximately 35 to 40%, hypertension presents to the emergency department with chief complaint of acute shortness of breath. Patient states that over the last couple of days she is developed worsening orthopnea, shortness of breath, and when she was at [employer] buying clothes today she developed severe dyspnea on exertion. Patient is hypertensive and tachycardic with mild respiratory distress at this time. Patient ran out of her medications 3 weeks ago because she has not been able to afford them. Exam: Nontoxic-appearing, increased work of breathing but able to speak in full sentences, lungs are clear to auscultation in all crespo, S1-S2 heard ta chycardia with regular rhythm I have greeted and performed a rapid initial assessment of this patient. A comprehensive ED assessment and evaluation of the patient, analysis of test results and completion of medical decision making process will be conducted by an additional ED providers. TRAVEL OUTSIDE OF THE [place] IN LAST 30 DAYS: No - Related Data Allergies/Adverse Reactions: No Known Allergies Allergy (Verified 10/22/18 12:34) Home Medications: lasix 20mg daily. metoprolol 25mg q12. lisinopril 10 q12 Past Medical History - Social History Frequency of alcohol use: Occasional Drug Abuse: None - Past Medical History Cardiac Medical History: Reports: Hx Congestive Heart Failure, Hx Hypertension Renal/ Medical History: Denies: Hx Peritoneal Dialysis Past Surgical History: Reports: Hx Section, Hx Orthopedic Surgery - L elbow Physical Exam - Vital signs Vitals: Temp Pulse Resp BP Pulse Ox 97.8 F 121 H 26 H 164/116 H 100 02/08/19 13:54 02/08/19 13:54 02/08/19 13:54 02/08/19 13:54 02/08/19 13:54 Course - Vital Signs Vital signs: Temp Pulse Resp BP Pulse Ox 97.8 F 121 H 26 H 164/116 H 100 02/08/19 13:54 02/08/19 13:54 02/08/19 13:54 02/08/19 13:54 02/08/19 13:54
--- NOTE | 2019-02-08 14:43 | RADIOLOGY REPORT (SQ) ---
EXAM DESCRIPTION: CHEST 2 VIEWS COMPLETED DATE/TIME: 02/08/2019 2:33 pm REASON FOR STUDY: SOB/INTREIANO COMPARISON: 10/22/2018 EXAM PARAMETERS: NUMBER OF VIEWS: two views TECHNIQUE: Digital Frontal and Lateral radiographic views of the chest acquired. RADIATION DOSE: NA LIMITATIONS: none FINDINGS: LUNGS AND PLEURA: No opacities, masses or pneumothorax. No pleural effusion. MEDIASTINUM AND HILAR STRUCTURES: No masses or contour abnormalities. HEART AND VASCULAR STRUCTURES: Cardiomegaly. There is pulmonary vascular congestion but no linda pul monary edema. BONES: No acute findings. HARDWARE: None in the chest. OTHER: No other significant finding. IMPRESSION: Cardiomegaly with pulmonary vascular congestion but no linda pulmonary edema. TECHNICAL DOCUMENTATION: JOB ID: [id number] [employer]- All Rights Reserved Reading location - IP/workstation name: [email or web address]
[2019-02-08 15:13] LABS: ABSOLUTE EOSINOPHILS # (AUTO) 0.1 10^3/uL (0.0-0.6); ABSOLUTE LYMPHOCYTES (AUTO) 3.3 10^3/uL (0.5-4.7); ABSOLUTE MONOCYTES (AUTO) 0.6 10^3/uL (0.1-1.4); ABSOLUTE NEUT (AUTO) 7.1 10^3/uL (1.7-8.2); BASOPHILS % (AUTO) 0.4 % (0-2); EOSINOPHILS % (AUTO) 1.3 % (0-6); HEMATOCRIT 41.3 % (36.0-47.0); HEMOGLOBIN 13.4 g/dL (12.0-15.5); LYMPHOCYTES % (AUTO) 29.5 % (13-45); MEAN CORPUSCULAR HEMOGLOBIN 27.3 pg (27.0-33.4); MEAN CORPUSCULAR HGB CONC 32.5 g/dL (32.0-36.0); MEAN CORPUSCULAR VOLUME 84 fl (80-97); MONOCYTES % (AUTO) 5.6 % (3-13); PLATELET COUNT 162 10^3/uL (150-450); RED BLOOD COUNT 4.91 10^6/uL (3.72-5.28); RED CELL DISTRIBUTION WIDTH 16.6 % (11.5-14.0); SEGMENTED NEUTROPHILS % (AUTO) 63.2 % (42-78); TOTAL CELLS COUNTED % (AUTO) 100 %; WHITE BLOOD COUNT 11.3 10^3/uL (4.0-10.5)
[2019-02-08 15:18] LABS: APPEARANCE,URINE CLOUDY; BILIRUBIN,URINE NEGATIVE (NEGATIVE); COLOR,URINE YELLOW; GLUCOSE, URINE NEGATIVE (NEGATIVE); KETONES,URINE NEGATIVE (NEGATIVE); LEUKOCYTE ESTERASE,URINE TRACE (NEGATIVE); NITRITE,URINE NEGATIVE (NEGATIVE); PROTEIN,URINE NEGATIVE (NEGATIVE); URINE SPECIFIC GRAVITY 1.025; UROBILINOGEN,URINE NEGATIVE mg/dL (<2.0)
[2019-02-08 15:32] LABS: ALBUMIN 4.6 g/dL (3.5-5.0); ALKALINE PHOSPHATASE 74 U/L (38-126); ANION GAP 9 (5-19); ASPARTATE AMINO TRANSFERASE 20 U/L (14-36); BILIRUBIN,DIRECT 0.1 mg/dL (0.0-0.4); BILIRUBIN,TOTAL 0.7 mg/dL (0.2-1.3); BLOOD UREA NITROGEN 13 mg/dL (7-20); CALCIUM 10.1 mg/dL (8.4-10.2); CARBON DIOXIDE 28 mmol/L (22-30); CHLORIDE 104 mmol/L (98-107); GLUCOSE 103 mg/dL (75-110); POTASSIUM 4.6 mmol/L (3.6-5.0); TOTAL PROTEIN 8.4 g/dL (6.3-8.2)
[2019-02-08] MEDS ORDERED: FUROSEMIDE INJ/PF 20 MG/2 ML SDV IV ONE (15:38)
[2019-02-08] MEDS ORDERED: LISINOPRIL 10 MG TABLET PO ONE (15:39)
[2019-02-08] MEDS ORDERED: METOPROLOL SUCCINATE 25 MG TAB.SR.24H PO ONE (15:39)
[2019-02-08 15:44] LABS: TROPONIN I 0.024 ng/mL
--- NOTE | 2019-02-08 15:44 | ER Document Report ---
ED General - General Chief Complaint: Breathing Difficulty Stated Complaint: DIFFICULTY BREATHING Time Seen by Provider: 02/08/19 14:02 TRAVEL OUTSIDE OF THE [place] IN LAST 30 DAYS: No - HPI Notes: Patient is a 48-year-old female who presents emergency department for evaluation of shortness of breath. She states that she has a history of congestive heart failure, but has been without her medications for the last 3 weeks. She states that she was walking around [employer] today and became so short of breath she presents to the ED for further evaluation. She remarks that she has had some orthopnea as well as some paroxysmal nocturnal dyspnea. She uses her stockings to minimize her swelling, states that she believes this been mostly under control. With exertion she states she has had intermittent sharp left arm pains. She states that it seems to start at her wrist, radiate up towards her shoulder. She denies any associated chest pain with these. They seem to be more frequent with exertion, but again only last a second or 2. On further questioning the patient was admitted to the hospital back in October. She had a negative stress test at that time. She currently does not have a physician, neither internal medicine or cardiology. - Related Data Allergies/Adverse Reactions: No Known Allergies Allergy (Verified 10/22/18 12:34) Home Medications: lasix 20mg daily. metoprolol 25mg q12. lisinopril 10 q12 Past Medical History - General Information source: Patient - Social History Smoking Status: Current Every Day Smoker Frequency of alcohol use: Occasional Drug Abuse: None Family History: Other - CHF Patient has suicidal ideation: No Patient has homicidal ideation: No - Past Medical History Cardiac Medical History: Reports: Hx Congestive Heart Failure, Hx Hypertension Renal/ Medical History: Denies: Hx Peritoneal Dialysis Past Surgical History: Reports: Hx Section, Hx Orthopedic Surgery - L elbow Review of Systems - Review of Systems Constitutional: No symptoms reported EENT: No symptoms reported Cardiovascular: See HPI Respiratory: See HPI Gastrointestinal: No symptoms reported Genitourinary: No symptoms reported Musculoskeletal: No symptoms reported Skin: No symptoms reported Neurological/Psychological: No symptoms reported Physical Exam - Vital signs Vitals: Temp Pulse Resp BP Pulse Ox 97.8 F 121 H 26 H 164/116 H 100 02/08/19 13:54 02/08/19 13:54 02/08/19 13:54 02/08/19 13:54 02/08/19 13:54 - Notes Notes: Vital signs reviewed, please refer to chart. Head is normocephalic, atraumatic. Pupils equal round, reactive to light. Neck is supple without meningismus. He art is regular rate with gallop noted, mildly tachycardic. Lungs are clear to auscultation bilaterally. Abdomen is soft, nontender, normoactive bowel sounds throughout. Extremities without cyanosis, clubbing. She does have +1 pitting edema to the pretibial regions bilaterally. Posterior calves are nontender. Peripheral pulses are equal. Skin is warm and dry. Patient is awake, alert, neurological exam is nonfocal. Course - Re-evaluation Re-evalutation: 02/08/19 15:42 Patient presents emergency department for evaluation. She complains of shortness of breath with exertion as well as PND, orthopnea. Her findings are most consistent with her congestive heart failure, untreated as of the last 3 weeks. She was tachycardic and tachypneic on arrival, but not hypoxic. My suspicion is that her tachycardia results from withdrawal from the metoprolol. At the time of my exam she is comfortable. I will go ahead and give her IV Lasix, now knowing that her potassium is within normal limits. She was given her oral medications as well. I explained to the patient the importance of regular follow-up with primary care as well as cardiology given her multiple medical issues. Also explained her that she needs to quit smoking. I am not overly concerned that the left arm pain is anginal at this time. She did have a negative stress test just a few months ago. She is counseled on modifying her risk factors. I will send her home with refills of her medications and referral to [facility]. 02/08/19 16:32 Patient's proBNP was only moderately elevated, it has been higher in the past. Her troponin was not undetectable but was still within an normal limits. Patient is stable. Will discharge her to home. The importance of close follow- up including smoking was stressed. - Vital Signs Vital signs: Temp Pulse Resp BP Pulse Ox 97.8 F 121 H 23 H 156/109 H 99 02/08/19 13:54 02/08/19 13:54 02/08/19 16:01 02/08/19 16:01 02/08/19 16:01 - Laboratory Result Diagrams: 02/08/19 14:40 02/08/19 14:40 Laboratory results interpreted by me: 02/08/19 02/08/19 02/08/19 14:40 14:40 14:40 WBC 11.3 H RDW 16.6 H NT-Pro-B Natriuret Pep 2230 H Total Protein 8.4 H Ur Leukocyte Esterase 02/08/19 14:40 WBC RDW NT-Pro-B Natriuret Pep Total Protein Ur Leukocyte Esterase TRACE H - Diagnostic Test Radiology reviewed: Image reviewed, Reports reviewed Radiology results interpreted by me: 02/08/19 15:43 Chest X-Ray 02/08/19 14:09 IMPRESSION: Cardiomegaly with pulmonary vascular congestion but no linda pulmonary edema. - EKG Interpretation by Me Additional EKG results interpreted by me: 02/08/19 15:43 Sinus tachycardia with rate of 106 bpm. Left bundle branch block. This is unchanged compared to prior study of October 14, 2018. Discharge - Discharge Clinical Impression: Non-compliance HTN (hypertension) Qualifiers: Hypertension type: essential hypertension Qualified Code(s): I10 - Essential (primary) hypertension CHF (congestive heart failure) Qualifiers: Heart failure type: systolic Heart failure chronicity: acute on chronic Qualified Code(s): I50.23 - Acute on chronic systolic (congestive) heart failure Condition: Stable Disposition: HOME, SELF-CARE Instructions: Congestive Heart Failure ([facility]), High Blood Pressure, Requiring Treatment ([facility]) Additional Instructions: Quit smoking. Take your medications as prescribed. Follow-up with primary care since possible. If you develop chest pain, increased difficult to breathing, or any other new or concerning symptoms, return immediately to the emergency department for evaluation. Prescriptions: Furosemide [Lasix 20 mg Tablet] 20 mg PO DAILY #30 tablet Lisinopril [Prinivil 10 mg Tablet] 10 mg PO Q12 #30 tablet Metoprolol Succinate [Toprol Xl 25 mg Tab.sr] 25 mg PO Q12 #30 tab
[2019-02-08 16:57] VITALS: BP 137/101
--- NOTE | 2019-02-08 20:17 | EKG REPORT ---
SEVERITY:- ABNORMAL ECG - SINUS TACHYCARDIA PROBABLE LEFT ATRIAL ABNORMALITY LEFT BUNDLE BRANCH BLOCK : Confirmed by: Azra Roper MD 08-Feb-2019 20:16:29
== END 2019-02-08 16:58 | disposition home or self-care (01) ==
LOC: ER 13:43
DX: I11.0 Hypertensive heart disease with heart failure (principal); I50.23 Acute on chronic systolic (congestive) heart failure; R06.00 Dyspnea, unspecified; R06.02 Shortness of breath; Z91.19 Patient's noncompliance with other medical treatment and regimen; I44.7 Left bundle-branch block, unspecified; F17.200 Nicotine dependence, unspecified, uncomplicated
CPT/HCPCS: 93005; 36415; 85025; 80053; 81001; 84484; 83880; 71046; 93010; J1940

== ENCOUNTER 2019-06-06 13:46 | Inpatient (IN) | payer SELFPAY ==
[2019-06-06] MEDS ORDERED: ASPIRIN 81 MG TABLET, CHEWABLE PO ONE (14:35)
--- NOTE | 2019-06-06 14:35 | ER Document Report ---
ED Medical Screen (RME) - General Chief Complaint: Breathing Difficulty Stated Complaint: DIFFICULTY BREATHING/HISTORY OF CHF Time Seen by Provider: 06/06/19 14:29 Mode of Arrival: Ambulatory Information source: Patient Notes: 48-year-old female presented to ED for complaint of shortness of breath. She states she has pressure on her chest at times and last night it felt like someone was just sitting there and would not go away. She states this morning she had on the right side but now she does not have it on either side she does have shortness of breath. She also does not take her blood pressure medicine as prescribed because she does not have insurance or way to go to the doctor refill her medicines. She got her last prescriptions filled in the [place] in [place] and is still taking those medications. She states she tries to stretch them out or do whatever she can to make them last. So she has not taken a proper dose of any of her blood pressure medicines. Her blood pressure is 137/94 in the emergency room. We will have [employer] land planner talk to her to see about getting her blood pressure medicines. We will also evaluate her for her chest pressure and shortness of breath. While sitting here she states she felt a little dizzy. She states she is applied for Medicaid and they have a certified alcohol and drug counselor trying to get her the Medicaid. I have greeted and performed a rapid initial assessment of this patient. A comprehensive ED assessment and evaluation of the patient, analysis of test results and completion of medical decision making process will be conducted by an additional ED providers. TRAVEL OUTSIDE OF THE [place] IN LAST 30 DAYS: No - Related Data Allergies/Adverse Reactions: No Known Allergies Allergy (Verified 06/06/19 14:30) Past Medical History - Past Medical History Cardiac Medical History: Reports: Hx Congestive Heart Failure, Hx Hypertension Renal/ Medical History: Denies: Hx Peritoneal Dialysis Past Surgical History: Reports: Hx Section, Hx Orthopedic Surgery - L elbow Physical Exam - Vital signs Vitals: Temp Pulse Resp BP Pulse Ox 98.9 F 112 H 24 H 137/90 H 97 06/06/19 14:15 06/06/19 14:15 06/06/19 14:15 06/06/19 14:15 06/06/19 14:15 Course - Vital Signs Vital signs: Temp Pulse Resp BP Pulse Ox 98.9 F 112 H 24 H 137/90 H 97 06/06/19 14:15 06/06/19 14:15 06/06/19 14:15 06/06/19 14:15 06/06/19 14:15
--- NOTE | 2019-06-06 15:01 | RADIOLOGY REPORT (SQ) ---
EXAM DESCRIPTION: CHEST 2 VIEWS COMPLETED DATE/TIME: 06/06/2019 2:49 pm REASON FOR STUDY: Chest discomfort and short of breath COMPARISON: 02/08/2019 EXAM PARAMETERS: NUMBER OF VIEWS: two views TECHNIQUE: Digital Frontal and Lateral radiographic views of the chest acquired. RADIATION DOSE: NA LIMITATIONS: none FINDINGS: LUNGS AND PLEURA: No opacities, masses or pneumothorax. No pleural effusion. MEDIASTINUM AND HILAR STRUCTURES: No masses or contour abnormalities. HEART AND VASCULAR STRUCTURES: Heart size is stable slightly enlarged. No failure. BONES: No acute findings. HARDWARE: None in the chest. OTHER: No other significant finding. IMPRESSION: Mild cardiomegaly. No failure or consolidation. TECHNICAL DOCUMENTATION: JOB ID: [id number] 2010 [employer]- All Rights Reserved Reading location - IP/workstation name: [email or web address]
[2019-06-06 15:24] LABS: ABSOLUTE BASOPHILS # (AUTO) 0.1 10^3/uL (0.0-0.2); ABSOLUTE EOSINOPHILS # (AUTO) 0.1 10^3/uL (0.0-0.6); ABSOLUTE LYMPHOCYTES (AUTO) 2.5 10^3/uL (0.5-4.7); ABSOLUTE MONOCYTES (AUTO) 0.6 10^3/uL (0.1-1.4); ABSOLUTE NEUT (AUTO) 8.6 10^3/uL (1.7-8.2); BASOPHILS % (AUTO) 0.4 % (0-2); EOSINOPHILS % (AUTO) 0.9 % (0-6); HEMATOCRIT 38.1 % (36.0-47.0); HEMOGLOBIN 12.7 g/dL (12.0-15.5); LYMPHOCYTES % (AUTO) 21.1 % (13-45); MEAN CORPUSCULAR HEMOGLOBIN 27.7 pg (27.0-33.4); MEAN CORPUSCULAR HGB CONC 33.4 g/dL (32.0-36.0); MEAN CORPUSCULAR VOLUME 83 fl (80-97); MONOCYTES % (AUTO) 4.7 % (3-13); PLATELET COUNT 120 10^3/uL (150-450); RED BLOOD COUNT 4.59 10^6/uL (3.72-5.28); SEGMENTED NEUTROPHILS % (AUTO) 72.9 % (42-78); TOTAL CELLS COUNTED % (AUTO) 100 %; WHITE BLOOD COUNT 11.8 10^3/uL (4.0-10.5)
[2019-06-06 15:49] LABS: ALBUMIN 4.3 g/dL (3.5-5.0); ALKALINE PHOSPHATASE 75 U/L (38-126); ANION GAP 8 (5-19); ASPARTATE AMINO TRANSFERASE 22 U/L (14-36); BILIRUBIN,TOTAL 0.8 mg/dL (0.2-1.3); BLOOD UREA NITROGEN 13 mg/dL (7-20); CALCIUM 9.2 mg/dL (8.4-10.2); CARBON DIOXIDE 25 mmol/L (22-30); CHLORIDE 106 mmol/L (98-107); GLUCOSE 136 mg/dL (75-110); POTASSIUM 4.8 mmol/L (3.6-5.0); TOTAL PROTEIN 7.6 g/dL (6.3-8.2)
--- NOTE | 2019-06-06 17:30 | EKG REPORT ---
SEVERITY:- ABNORMAL ECG - SINUS OR ECTOPIC ATRIAL TACHYCARDIA LEFT BUNDLE BRANCH BLOCK : Confirmed by: Lb Guevara 06-Jun-2019 17:29:46
[2019-06-06] MEDS ORDERED: FUROSEMIDE INJ/PF 40 MG/4 ML SDV IV ONE (18:27)
--- NOTE | 2019-06-06 18:31 | ER Document Report ---
ED Respiratory Problem - General Chief Complaint: Shortness Of Breath Stated Complaint: DIFFICULTY BREATHING/HISTORY OF CHF Time Seen by Provider: 06/06/19 14:29 Mode of Arrival: Ambulatory Notes: Patient is a 48-year-old female with a history of heart failure, last echocardiogram showing ejection fraction of about 25%, and noncompliance who comes in with difficulty breathing. Patient has apparently been out of her prescription medication for at least a month which include metoprolol and Lasix. She does not have a primary care doctor and has not seen a psychiatric tech. Denies chest pain. States increasing dyspnea on exertion and orthopnea. States that she has leg swelling. No recent travel. No fever cough. TRAVEL OUTSIDE OF THE [place] IN LAST 30 DAYS: No - HPI Patient complains to provider of: Short of breath Duration: Worse/persistent Quality of pain: No pain Severity: None Pain Level: Denies - Related Data Allergies/Adverse Reactions: No Known Allergies Allergy (Verified 06/06/19 14:30) Home Medications: unsure Past Medical History - General Information source: Patient - Social History Smoking Status: Current Some Day Smoker Chew tobacco use (# tins/day): No Frequency of alcohol use: Occasional Drug Abuse: None Family History: Other - CHF Patient has suicidal ideation: No Patient has homicidal ideation: No - Past Medical History Cardiac Medical History: Reports: Hx Congestive Heart Failure, Hx Hypertension Renal/ Medical History: Denies: Hx Peritoneal Dialysis Past Surgical History: Reports: Hx Section, Hx Orthopedic Surgery - L elbow Review of Systems - Review of Systems Constitutional: No symptoms reported EENT: No symptoms reported Cardiovascular: See HPI Respiratory: See HPI Gastrointestinal: No symptoms reported Genitourinary: No symptoms reported Female Genitourinary: No symptoms reported Musculoskeletal: No symptoms reported Skin: No symptoms reported Hematologic/Lymphatic: No symptoms reported Neurological/Psychological: No symptoms reported Physical Exam - Vital signs Vitals: Pulse Ox 95 06/06/19 13:47 Interpretation: Normal - General General appearance: Appears well, Alert - HEENT Head: Normocephalic, Atraumatic Eyes: Normal Pupils: PERRL - Respiratory Respiratory status: No respiratory distress Chest status: Nontender Breath sounds: Normal Chest palpation: Normal - Cardiovascular Rhythm: Regular Heart sounds: Normal auscultation Murmur: No - Abdominal Inspection: Normal Distension: No distension Bowel sounds: Normal Tenderness: Nontender Organomegaly: No organomegaly - Back Back: Normal, Nontender - Extremities General upper extremity: Normal inspection, Nontender, Normal color, Normal ROM, Normal temperature General lower extremity: Normal inspection, Nontender, Normal color, Normal ROM, Normal temperature, Normal weight bearing. No: Abner's sign - Neurological Neuro grossly intact: Yes Cognition: Normal Orientation: AAOx4 [place] Coma Scale Eye Opening: Spontaneous [place] Coma Scale Verbal: Oriented [place] Coma Scale Motor: Obeys Commands [place] Coma Scale Total: 15 Speech: Normal Motor strength normal: LUE, RUE, LLE, RLE Sensory: Normal - Psychological Associated symptoms: Normal affect, Normal mood - Skin Skin Temperature: Warm Skin Moisture: Dry Skin Color: Normal Course - Re-evaluation Re-evalutation: 06/06/19 18:30 Spoke with Roula Apple, please order BNP. Patient with history of noncompliance has not been taking Lasix or metoprolol. Patient will be admitted to the hospital service for further evaluation and optimization. She will likely need a repeat echocardiogram. Patient is agreeable to this plan at this time. BNP is pending. - Vital Signs Vital signs: Temp Pulse Resp BP Pulse Ox 97.7 F 85 16 132/90 H 98 06/06/19 21:09 06/06/19 21:02 06/06/19 21:10 06/06/19 21:09 06/06/19 21:10 - Laboratory Result Diagrams: 06/06/19 15:00 06/06/19 15:00 Laboratory results interpreted by me: 06/06/19 06/06/19 06/06/19 15:00 15:00 15:00 WBC 11.8 H RDW 15.0 H Plt Count 120 L Absolute Neuts (auto) 8.6 H Glucose 136 H NT-Pro-B Natriuret Pep 2420 H - Diagnostic Test Radiology reviewed: Reports reviewed Discharge - Discharge Clinical Impression: CHF (congestive heart failure) Qualifiers: Heart failure type: unspecified Heart failure chronicity: acute on chronic Qualified Code(s): I50.9 - Heart failure, unspecified Condition: Stable Disposition: ADMITTED INPATIENT Admitting Provider: Roula (Hospitalist) Unit Admitted: [facility]
[2019-06-06] MEDS ORDERED: ACETAMINOPHEN 325 MG TABLET PO PRN (18:45)
[2019-06-06] MEDS ORDERED: ONDANSETRON HCL INJ/PF 4 MG/2 ML SDV IV PRN (18:45)
--- NOTE | 2019-06-06 19:01 | PDOC H&P ---
History of Present Illness Admission Date/PCP: Shortness of breath for the last 3 days Patient complains of: Shortness of breath for the last 3 days History of Present Illness: LUIZ MAYEN is a 48 year old female with history of congestive heart failure with a EF of 35%, hypertension noncompliant with her medications came to the emergency room with complaints of shortness of breath for last 2 days. Patient was shortness of breath at rest and BNP is pending. Chest x-ray was normal with cardiomegaly. Plan is to admit her to the hospital for assessment of the CHF exacerbation. Past Medical History Cardiac Medical History: Reports: Congestive Heart Failure, Hypertension Past Surgical History Past Surgical History: Reports: Section, Orthopedic Surgery - L elbow Social History Information Source: Patient Smoking Status: Current Some Day Smoker Electronic Cigarette use?: No Frequency of Alcohol Use: None Hx Recreational Drug Use: No Drugs: None Hx Prescription Drug Abuse: No - Advance Directive Resuscitation Status: Full Code Family History Family History: Other - CHF Parental Family History Reviewed: Yes - Hypertension Children Family History Reviewed: Yes Sibling(s) Family History Reviewed.: Yes Medication/Allergy Home Medications: Furosemide [Lasix 20 mg Tablet] 20 mg PO DAILY #30 tablet 02/08/19 Lisinopril [Prinivil 10 mg Tablet] 10 mg PO Q12 #30 tablet 02/08/19 Metoprolol Succinate [Toprol Xl 25 mg Tab.sr] 25 mg PO Q12 #30 tab 02/08/19 Allergies/Adverse Reactions: No Known Allergies Allergy (Verified 06/06/19 14:30) Review of Systems Constitutional: ABSENT: fatigue, fever(s), headache(s), weakness Eyes: ABSENT: visual disturbances Ears: ABSENT: hearing changes Nose, Mouth, and Throat: ABSENT: sore throat Cardiovascular: PRESENT: dyspnea on exertion Respiratory: PRESENT: dyspnea Gastrointestinal: ABSENT: abdominal pain, constipation, diarrhea, hematemesis, hematochezia, nausea, vomiting Integumentary: ABSENT: rash, wounds Neurological: ABSENT: abnormal gait, abnormal speech, confusion, dizziness, foc al weakness, syncope Psychiatric: ABSENT: anxiety, depression, homidical ideation, suicidal ideation Physical Exam Vital Signs: Temp Pulse Resp BP Pulse Ox 98.9 F 112 H 21 H 152/113 H 98 06/06/19 14:15 06/06/19 14:15 06/06/19 18:01 06/06/19 18:01 06/06/19 18:01 Intake & Output 06/05/19 06/06/19 06/07/19 06:59 06:59 06:59 Weight 109.2 kg General appearance: PRESENT: morbidly obese, severe distress Head exam: PRESENT: atraumatic Eye exam: PRESENT: PERRLA Mouth exam: PRESENT: moist, tongue midline Neck exam: ABSENT: carotid bruit, JVD, lymphadenopathy, thyromegaly Respiratory exam: PRESENT: decreased breath sounds Cardiovascular exam: PRESENT: tachycardia Pulses: PRESENT: normal dorsalis pedis pul GI/Abdominal exam: PRESENT: normal bowel sounds, soft. ABSENT: distended, guarding, mass, organolmegaly, rebound, tenderness Rectal exam: PRESENT: deferred Neurological exam: PRESENT: alert, awake, oriented to person, oriented to place, oriented to time, oriented to situation, CN II-XII grossly intact. ABSENT: motor sensory deficit Psychiatric exam: PRESENT: appropriate affect, normal mood. ABSENT: homicidal ideation, suicidal ideation Results Laboratory Results: 06/06/19 15:00 06/06/19 15:00 06/06/19 06/06/19 15:00 15:00 WBC 11.8 H RBC 4.59 Hgb 12.7 Hct 38.1 MCV 83 MCH 27.7 MCHC 33.4 RDW 15.0 H Plt Count 120 L Seg Neutrophils % 72.9 Sodium 139.0 Potassium 4.8 Chloride 106 Carbon Dioxide 25 Anion Gap 8 BUN 13 Creatinine 0.78 Est GFR ( Amer) > 60 Glucose 136 H Calcium 9.2 Total Bilirubin 0.8 AST 22 Alkaline Phosphatase 75 Total Protein 7.6 Albumin 4.3 06/06/19 15:00 Troponin I 0.020 Impressions: Chest X-Ray 06/06/19 14:36 IMPRESSION: Mild cardiomegaly. No failure or consolidation. Assessment and Plan - Diagnosis (1) CHF (congestive heart failure) Qualifiers: Is this a current diagnosis for this admission?: Yes Plan: 06/06/2019-patient is going to be admitted to [facility] for CHF exacerbation. Admitted as inpatient. Started on IV Lasix 40 mg twice a day. GI prophylaxis and DVT prophylaxis will be initiated. Started on IV hydralazine 10 mg every 6 hours PRN for systolic blood pressure more than 160. Will start on low-sodium diet and fluid restriction. (2) HTN (hypertension) Is this a current diagnosis for this admission?: Yes Plan: 06/06/2019-blood pressure is 152/113. To start her on IV Lasix 40 mg twice a day and start on IV hydralazine 10 mg every 6 hours PRN for systolic blood pressure more than 160. (3) Morbid obesity with BMI of 40.0-44.9, adult Is this a current diagnosis for this admission?: No Plan: 06/06/2019-patient BMI is more than 40. Diet exercise weight loss lifestyle modifications are discussed with the patient.
--- NOTE | 2019-06-06 19:38 | RADIOLOGY REPORT (SQ) ---
EXAM DESCRIPTION: CTA CHEST COMPLETED DATE/TIME: 06/06/2019 7:25 pm REASON FOR STUDY: hypoxia COMPARISON: None. TECHNIQUE: CT scan of the chest performed using helical scanning technique with dynamic intravenous contrast injection. Images reviewed with lung, soft tissue and bone windows. Reconstructed coronal and sagittal MPR images reviewed. Additional 3 dimensional post-processing performed to develop Maximal Intensity Projection images (MT P). All images stored on PACS. All CT scanners at this facility use dose modulation, iterative reconstruction, and/or weight based d osing when appropriate to reduce radiation dose to as low as reasonably achievable (ALARA). [facility]: Dose Right [facility]: CareDose [facility]: Dose Right [facility]: Teradose 4D [facility]: SpanDeX CONTRAST TYPE AND DOSE: contrast/concentration: Isovue 350.00 mg/ml; Total Contrast Delivered: 71.0 ml; Total Saline Delivered: 32.1 ml Contrast bolus optimized for the pulmonary arteries. Not diagnostic for the aorta. RENAL FUNCTION: GFR > 60. RADIATION DOSE: CT Rad equipment meets quality standard of care and radiation dose reduction techniq ues were employed. CTDIvol: 19.8 - 28.9 mGy. DLP: 1097 mGy-cm. . LIMITATIONS: None. FINDINGS: LUNGS AND PLEURA: No masses, infiltrates, or pneumothorax. No pleural effusions or pleura l calcifications. AORTA AND GREAT VESSELS: No aneurysm. Contrast bolus not optimized for the aorta. HEART: No pericardial effusion. Cardiomegaly. PULMONARY ARTERIES: No emboli visualized in the main pulmonary arteries or the segmental branches. HILAR AND MEDIASTINAL STRUCTURES: No identified masses or abnormal nodes. HARDWARE: None in the chest. UPPER ABDOMEN: No significant findings. Limited exam. THYROID AND OTHER SOFT TISSUES: No masses. No adenopathy. BONES: No acute or significant finding. 3D MIPS: Confirm above findings. OTHER: No other significant finding. IMPRESSION: No PE. No acute findings. COMMENT: Quality ID # [id number]: Final reports with documentation of one or more dose reduction techniques (e.g., Automated exposure control, adjustment of the mA and/or kV according to patient size, use of iterative reconstruction technique) TECHNICAL DOCUMENTATION: JOB ID: [id number] 2010 [employer]- All Rights Reserved Reading location - IP/workstation name: [email or web address]
[2019-06-06] MEDS ORDERED: IPRATROPIUM/ALBUTEROL 0.5-2.5 MG/3 ML AMPUL NEB ONE (20:00)
[2019-06-06 21:38] LABS: CREATINE KINASE MB 1.49 ng/mL (<4.55); TROPONIN I 0.024 ng/mL
[2019-06-07 03:22] LABS: ABSOLUTE BASOPHILS # (AUTO) 0.1 10^3/uL (0.0-0.2); ABSOLUTE EOSINOPHILS # (AUTO) 0.1 10^3/uL (0.0-0.6); ABSOLUTE LYMPHOCYTES (AUTO) 2.2 10^3/uL (0.5-4.7); ABSOLUTE MONOCYTES (AUTO) 0.6 10^3/uL (0.1-1.4); ABSOLUTE NEUT (AUTO) 7.6 10^3/uL (1.7-8.2); BASOPHILS % (AUTO) 0.9 % (0-2); EOSINOPHILS % (AUTO) 1.4 % (0-6); HEMATOCRIT 36.6 % (36.0-47.0); HEMOGLOBIN 12.3 g/dL (12.0-15.5); LYMPHOCYTES % (AUTO) 20.3 % (13-45); MEAN CORPUSCULAR HEMOGLOBIN 27.5 pg (27.0-33.4); MEAN CORPUSCULAR HGB CONC 33.5 g/dL (32.0-36.0); MEAN CORPUSCULAR VOLUME 82 fl (80-97); PLATELET COUNT 113 10^3/uL (150-450); RED BLOOD COUNT 4.46 10^6/uL (3.72-5.28); RED CELL DISTRIBUTION WIDTH 15.1 % (11.5-14.0); SEGMENTED NEUTROPHILS % (AUTO) 71.4 % (42-78); TOTAL CELLS COUNTED % (AUTO) 100 %; WHITE BLOOD COUNT 10.6 10^3/uL (4.0-10.5)
[2019-06-07 03:38] LABS: ALBUMIN 3.8 g/dL (3.5-5.0); ALKALINE PHOSPHATASE 79 U/L (38-126); ANION GAP 6 (5-19); ASPARTATE AMINO TRANSFERASE 20 U/L (14-36); BILIRUBIN,TOTAL 0.7 mg/dL (0.2-1.3); BLOOD UREA NITROGEN 13 mg/dL (7-20); CALCIUM 9.3 mg/dL (8.4-10.2); CARBON DIOXIDE 29 mmol/L (22-30); CHLORIDE 106 mmol/L (98-107); CHOLESTEROL 185.58 mg/dL (0-200); GLUCOSE 101 mg/dL (75-110); POTASSIUM 4.3 mmol/L (3.6-5.0); TRIGLYCERIDES 105 mg/dL (<150)
[2019-06-07 03:49] LABS: DIRECT LDL 98 mg/dL (<100)
[2019-06-07 03:50] LABS: CREATINE KINASE MB 1.14 ng/mL (<4.55); TROPONIN I 0.035 ng/mL
[2019-06-07] MEDS: PANTOPRAZOLE SODIUM 40 MG TABLET.DR PO SCH ×2 (05:48→17:56)
--- NOTE | 2019-06-07 07:05 | XCELERA REPORT ---
[address] [address] Transthoracic Echocardiogram Report Name: LUIZ MAYEN Age: 48 yrs Gender: Female : 1970 Patient Status: Inpatient Patient Location: [place] [id number]^A Study Date: 06/06/2019 08:13 PM Height: 65 in Weight: 240 lb BSA: 2.1 m2 Procedure: A complete two-dimensional transthoracic echocardiogram was performed (2D, M-mode, spectral and color flow Doppler). The study was technically difficult with many images being suboptimal in quality. The study was done portable in the ER. Reason For Study: chf Ordering Physician: MARIANA LEWIS Performed By: Antonia Varma Interpretation Summary The left ventricle is moderately to severly dilated. Left ventricular systolic function is severely reduced. LV EF is <25%. Diastolic function not adequately assessed. Severe LV gobal hypokinesis with dyskinesis of the anterior wall and akinesis of the inferior and infersoeptal yuan. IVC size is normal with less than 50% collapse with respiratory variation. Mild LAE. Mild MAC without stenosis. Mild MR, mild TR. Mildly elevated pulmonary pressures between 44 and 49 mmHg. No prior studies for comparison. MMode/2D Measurements & Calculations RVDd: 3.1 cm LVIDd: 6.2 cm FS: 14.0 % Ao root diam: 2.9 cm IVSd: 1.2 cm LVIDs: 5.3 cm EDV(Teich): 194.7 ml Ao root area: 6.4 cm2 LVPWd: 1.1 cm ESV(Teich): 137.8 ml LA dimension: 4.7 cm EF(Teich): 29.2 % Doppler Measurements & Calculations MV E max meghan: MV P1/2t max meghan: Ao V2 max: LV V1 max P.8 cm/sec 213.1 cm/sec 159.6 cm/sec 7.5 mmHg MV A max meghan: MV P1/2t: 59.6 msec Ao max PG: LV V1 max: 31.5 cm/sec MVA(P1/2t): 3.7 cm2 10.2 mmHg 137.1 cm/sec MV E/A: 5.5 MV dec slope: 1048 cm/sec2 MV dec time: 0.09 sec PA V2 max: TR max meghan: MV P1/2t-pr_phl: 84.1 cm/sec 290.5 cm/sec 59.6 msec PA max P.8 mmHgTR max P.8 mmHg Left Ventricle The left ventricle is moderately to severly dilated. Left ventricular systolic function is severely reduced. LV EF is <25%. Diastolic function not adequately assessed. Severe LV gobal hypokinesis with dyskinesis of the anterior wall and akinesis of the inferior and inferoseptal yuan. Right Ventricle The right ventricle is normal in size, thickness and function. The right ventricular systolic function is normal. Atria The right atrium is normal. The left atrium is mildly dilated. Mitral Valve There is mild mitral annular calcification. There is no evidence of mitral valve prolapse. There is no mitral valve stenosis. There is a mild amount of mitral regurgitation. Aortic Valve The aortic valve is grossly normal. There is no aortic valvular vegetation. There is no aortic valve stenosis. No aortic regurgitation is present. Tricuspid Valve The tricuspid valve is not well visualized, but is grossly normal. There is no tricuspid valve prolapse. There is no tricuspid stenosis. There is a mild amount of tricuspid regurgitation. Mildly elevated pulmonary pressures with pressures between 44 and 49 mmHg. Pulmonic Valve The pulmonic valve is not well seen, but is grossly normal. There is no vegetation on the pulmonic valve. There is no pulmonic valvular stenosis. Great Vessels The inferior vena cava appeared normal and decreased < 50% with respiration (RAP 10-15 mmHg). Effusions There is no pericardial effusion. There is no pleural effusion. : MARIANA LEWIS Antonio
--- NOTE | 2019-06-07 08:14 | PDOC CONSULTATION ---
Consultation Consult Date: 06/07/19 Attending physician:: MARIANA LEWIS Provider Consulted: MEGAN MELENDEZ Consult reason:: Heart failure History of Present Illness Admission Date/PCP: 06/06/19 19:21 Patient complains of: No symptoms this morning. History of Present Illness: LUIZ MAYEN is a 48 year old female with history of hypertension, pericarditis approximately 15 years ago, tobacco use of 1 pack/day for at least 20 years now smoking only 1 pack/week for the last 4 months and heart failure who is consulted to our service after she was admitted for dyspnea and lower extremity edema. The patient states that she was initially diagnosed with heart failure approximately 2 years ago when she presented to this hospital with sim ilar symptoms however I have not been able to find any prior admissions in the electronic medical record. Apparently she was admitted to this institution in October 2018 and underwent echocardiography with a low ejection fraction however, once again, I cannot find any prior records. She ran out of her Lasix in mid April and had been doing okay until a few days prior to admission when she developed shortness of breath and lower extremity edema as well as PND and some orthopnea. She came to the emergency room where she was found to be in heart failure with a proBNP of greater than 3000. She was given Lasix IV and this morning feels 100% better. She specifically denies lower extremity edema, shortness of breath, PND and orthopnea. Past Medical History Cardiac Medical History: Reports: Congestive Heart Failure, Hypertension Psychiatric Medical History: Denies: Depression Past Surgical History Past Surgical History: Reports: Section, Orthopedic Surgery - L elbow Social History Smoking Status: Former Smoker Cigarettes Packs Per Day: 1 Electronic Cigarette use?: Yes - vape Number of Years Smokin Last Time Smoked: 4 months ago Frequency of Alcohol Use: Social Hx Recreational Drug Use: No Drugs: None Hx Prescription Drug Abuse: No - Advance Directive Resuscitation Status: Full Code Family History Family History: Other - CHF Parental Family History Reviewed: Yes Children Family History Reviewed: Yes Sibling(s) Family History Reviewed.: Yes Medication/Allergy Home Medications: Furosemide [Lasix 20 mg Tablet] 20 mg PO DAILY #30 tablet 02/08/19 Lisinopril [Prinivil 10 mg Tablet] 10 mg PO Q12 #30 tablet 02/08/19 Metoprolol Succinate [Toprol Xl 25 mg Tab.sr] 25 mg PO Q12 #30 tab 02/08/19 Allergies/Adverse Reactions: No Known Allergies Allergy (Verified 06/06/19 14:30) Physical Exam Vital Signs: Temp Pulse Resp BP Pulse Ox 98.3 F 97 18 134/86 H 97 06/07/19 04:36 06/07/19 06:54 06/07/19 04:36 06/07/19 04:36 06/07/19 04:36 Intake & Output 06/06/19 06/07/19 06/08/19 06:59 06:59 06:59 Intake Total 400 Balance 400 Weight 109.4 kg General appearance: PRESENT: no acute distress, obese, well-developed, well- nourished Head exam: PRESENT: atraumatic, normocephalic Eye exam: PRESENT: conjunctiva pink, EOMI, PERRLA. ABSENT: scleral icterus Neck exam: ABSENT: carotid bruit, JVD, lymphadenopathy, thyromegaly Respiratory exam: PRESENT: clear to auscultation bria. ABSENT: rales, rhonchi, wheezes Cardiovascular exam: PRESENT: gallop, tachycardia Pulses: PRESENT: normal dorsalis pedis pul Extremities exam: PRESENT: full ROM. ABSENT: calf tenderness, clubbing, pedal edema Results Laboratory Results: 06/07/19 03:14 06/07/19 03:14 06/06/19 06/06/19 06/07/19 15:00 15:00 03:14 WBC 11.8 H 10.6 H RBC 4.59 4.46 Hgb 12.7 12.3 Hct 38.1 36.6 MCV 83 82 MCH 27.7 27.5 MCHC 33.4 33.5 RDW 15.0 H 15.1 H Plt Count 120 L 113 L Seg Neutrophils % 72.9 71.4 Sodium 139.0 Potassium 4.8 Chloride 106 Carbon Dioxide 25 Anion Gap 8 BUN 13 Creatinine 0.78 Est GFR ( Amer) > 60 Glucose 136 H Calcium 9.2 Total Bilirubin 0.8 AST 22 Alkaline Phosphatase 75 Total Protein 7.6 Albumin 4.3 Triglycerides Cholesterol LDL Cholesterol Direct VLDL Cholesterol HDL Cholesterol TSH 06/07/19 06/07/19 03:14 03:14 WBC RBC Hgb Hct MCV MCH MCHC RDW Plt Count Seg Neutrophils % Sodium 140.9 Potassium 4.3 Chloride 106 Carbon Dioxide 29 Anion Gap 6 BUN 13 Creatinine 0.85 Est GFR ( Amer) > 60 Glucose 101 Calcium 9.3 Total Bilirubin 0.7 AST 20 Alkaline Phosphatase 79 Total Protein 7.0 Albumin 3.8 Triglycerides 105 Cholesterol 185.58 LDL Cholesterol Direct 98 VLDL Cholesterol 21.0 HDL Cholesterol 60 TSH 1.90 06/06/19 06/06/19 06/06/19 15:00 15:00 15:00 Creatine Kinase 112 CK-MB (CK-2) Troponin I 0.020 NT-Pro-B Natriuret Pep 2420 H 06/06/19 06/07/19 06/07/19 20:48 03:14 03:14 Creatine Kinase 90 CK-MB (CK-2) 1.49 1.14 Troponin I 0.024 0.035 NT-Pro-B Natriuret Pep 06/07/19 03:14 Creatine Kinase CK-MB (CK-2) Troponin I NT-Pro-B Natriuret Pep 3070 H EKG Comments: Telemetry was reviewed this morning demonstrating sinus tachycardia with bundle branch block. Impressions: Chest/Abdomen CTA 06/06/19 00:00 IMPRESSION: No PE. No acute findings. Chest X-Ray 06/06/19 14:36 IMPRESSION: Mild cardiomegaly. No failure or consolidation. Current Medications Generic Name Dose Route Start Last Admin Trade Name Freq PRN Reason Stop Dose Admin Acetaminophen 650 mg 06/06/19 18:45 Tylenol 325 Mg Tablet PO 07/06/19 18:44 Q4HP PRN FEVER >101 Enoxaparin Sodium 40 mg 06/07/19 10:00 Lovenox Inj 40 Mg/0.4 Ml Disp.Syrin SUBCUT 07/07/19 09:59 DAILY KILO Furosemide 40 mg 06/07/19 10:00 Lasix Inj/Pf 40 Mg/4 Ml Sdv IV 07/07/19 09:59 BID KILO Lisinopril 10 mg 06/07/19 10:00 Prinivil 10 Mg Tablet PO 07/07/19 09:59 Q12 KILO Metoprolol Succinate 25 mg 06/07/19 10:00 Toprol Xl 25 Mg Tab.Sr PO 07/07/19 09:59 Q12 KILO Ondansetron HCl 4 mg 06/06/19 18:45 Zofran Inj/Pf 4 Mg/2 Ml Sdv IV 07/06/19 18:44 Q8HP PRN FOR NAUSEA/VOMITING Pantoprazole Sodium 40 mg 06/07/19 06:00 06/07/19 05:[address] Tablet PO 07/07/19 05:59 40 mg BID@0600,1700 KILO Administration Discontinued Medications Generic Name Dose Route Start Last Admin Trade Name Sandra PRN Reason Stop Dose Admin Albuterol/Ipratropium 3 ml 06/06/19 20:00 06/06/19 21:00 Duoneb 3 Ml Ampul NEB 06/06/19 20:01 3 ml RTNOW ONE Administration Aspirin 324 mg 06/06/19 14:35 06/06/19 15:26 Aspirin 81 Mg Chewable Tablet PO 06/06/19 14:36 324 mg NOW ONE Administration Furosemide 40 mg 06/06/19 18:27 06/06/19 19:03 Lasix Inj/Pf 40 Mg/4 Ml Sdv IV 06/06/19 18:28 40 mg NOW ONE Administration Status: Image reviewed by me - Echocardiogram done on 06/06/2019 which was most remarkable for an ejection fraction of less than 25% among other findings. Assessment & Plan - Diagnosis (1) Acute CHF (congestive heart failure) Qualifiers: Heart failure type: systolic Qualified Code(s): I50.21 - Acute systolic (congestive) heart failure Is this a current diagnosis for this admission?: Yes Plan: Very unfortunate 48-year-old female with a history of heart failure with reduced ejection fraction since at least 2 years who has not had adequate cardiovascular care secondary to her very difficult social situation as well as very tight financial status. Up to this point the etiology of her heart failure is unknown as, per her report, she has not undergone any significant cardiovascular work-up and has not seen a hydraulic boom operator until today. Her current heart failure exacerbation is secondary to noncompliance with medications as she cannot pay for them. Fortunately, she is now in the process of being enrolled into the [facility]. Today she feels 100% better after Lasix IV. Recommendations: -Transition patient from IV Lasix to 40 mg of Lasix p.o. twice daily. -Lexiscan nuclear stress test while an inpatient to assess for ischemic heart disease. -Increase metoprolol succinate to 50 mg twice daily. -Discontinue lisinopril. -Start Entresto 24 mg /26 mg p.o. twice daily 36 hours after stopping lisinopril. -Dietitian/nutrition consult for low-sodium diet. -External wearable defibrillator (LifeVest) prior to discharge. -Strict intake and output in chart. -Low-sodium diet, less than 2000 mg daily. (2) HTN (hypertension) Qualifiers: Hypertension type: essential hypertension Qualified Code(s): I10 - Essential (primary) hypertension Is this a current diagnosis for this admission?: Yes Plan: Her blood pressure is well controlled. I will defer further management to the primary team.
[2019-06-07] MEDS ORDERED: FUROSEMIDE INJ/PF 40 MG/4 ML SDV IV SCH (10:00)
[2019-06-07] MEDS ORDERED: METOPROLOL SUCCINATE 25 MG TAB.SR.24H PO SCH (10:00)
[2019-06-07] MEDS ORDERED: LISINOPRIL 10 MG TABLET PO SCH (10:00)
--- NOTE | 2019-06-07 10:07 | PDOC PROGRESS REPORT ---
Subjective Progress Note for:: 06/07/19 Subjective:: 48 year old female with history of congestive heart failure with a EF of 35%, hypertension noncompliant with her medications came to the emergency room with complaints of shortness of breath for last 2 days. Patient was shortness of breath at rest and BNP is pending. Chest x-ray was normal with cardiomegaly. Plan is to admit her to the hospital for assessment of the CHF exacerbation. 06/[id number]-jtyb-old female with history of congestive heart failure, hype rtension noncompliant with medications history of pericarditis came to the emergency room with complaints of shortness of breath. CTA of the chest is negative for acute pathology. Patient was started on IV Lasix 40 mg twice a day patient is feeling 100% better today. Pulse ox is 97% on room air. Dr. Samayoa called me to discuss the case he recommended to switch IV Lasix to p.o. Lasix, increase the dose of metoprolol, to hold lisinopril and start on Entresto after 36 hours, to arrange for a Lexiscan stress test. He is also planning to make arrangements for a LifeVest. In his opinion patient may have to stay until the weekend. Patient is comfortable in the bed communicating well. No complaints. Reason For Visit: CHF EXACERBATION Physical Exam Vital Signs: Temp Pulse Resp BP Pulse Ox 98.3 F 97 18 134/86 H 97 06/07/19 04:36 06/07/19 06:54 06/07/19 04:36 06/07/19 04:36 06/07/19 04:36 Intake & Output 06/06/19 06/07/19 06/08/19 06:59 06:59 06:59 Intake Total 400 Balance 400 Weight 109.4 kg General appearance: PRESENT: no acute distress, obese Head exam: PRESENT: atraumatic Eye exam: PRESENT: PERRLA Mouth exam: PRESENT: moist, tongue midline Teeth exam: PRESENT: poor dentation Neck exam: ABSENT: carotid bruit, JVD, lymphadenopathy, thyromegaly Respiratory exam: PRESENT: decreased breath sounds Cardiovascular exam: PRESENT: RRR. ABSENT: diastolic murmur, rubs, systolic murmur GI/Abdominal exam: PRESENT: normal bowel sounds, soft. ABSENT: distended, guarding, mass, organolmegaly, rebound, tenderness Rectal exam: PRESENT: deferred Extremities exam: PRESENT: full ROM. ABSENT: calf tenderness, clubbing, pedal edema Neurological exam: PRESENT: alert, awake, oriented to person, oriented to place, oriented to time, oriented to situation, CN II-XII grossly intact. ABSENT: motor sensory deficit Psychiatric exam: PRESENT: appropriate affect, normal mood. ABSENT: homicidal ideation, suicidal ideation Results Laboratory Results: 06/07/19 03:14 06/07/19 03:14 06/06/19 06/06/19 06/07/19 15:00 15:00 03:14 WBC 11.8 H 10.6 H RBC 4.59 4.46 Hgb 12.7 12.3 Hct 38.1 36.6 MCV 83 82 MCH 27.7 27.5 MCHC 33.4 33.5 RDW 15.0 H 15.1 H Plt Count 120 L 113 L Seg Neutrophils % 72.9 71.4 Sodium 139.0 Potassium 4.8 Chloride 106 Carbon Dioxide 25 Anion Gap 8 BUN 13 Creatinine 0.78 Est GFR ( Amer) > 60 Glucose 136 H Calcium 9.2 Total Bilirubin 0.8 AST 22 Alkaline Phosphatase 75 Total Protein 7.6 Albumin 4.3 Triglycerides Cholesterol LDL Cholesterol Direct VLDL Cholesterol HDL Cholesterol TSH 06/07/19 06/07/19 03:14 03:14 WBC RBC Hgb Hct MCV MCH MCHC RDW Plt Count Seg Neutrophils % Sodium 140.9 Potassium 4.3 Chloride 106 Carbon Dioxide 29 Anion Gap 6 BUN 13 Creatinine 0.85 Est GFR ( Amer) > 60 Glucose 101 Calcium 9.3 Total Bilirubin 0.7 AST 20 Alkaline Phosphatase 79 Total Protein 7.0 Albumin 3.8 Triglycerides 105 Cholesterol 185.58 LDL Cholesterol Direct 98 VLDL Cholesterol 21.0 HDL Cholesterol 60 TSH 1.90 06/06/19 06/06/19 06/06/19 15:00 15:00 15:00 Creatine Kinase 112 CK-MB (CK-2) Troponin I 0.020 NT-Pro-B Natriuret Pep 2420 H 06/06/19 06/07/19 06/07/19 20:48 03:14 03:14 Creatine Kinase 90 CK-MB (CK-2) 1.49 1.14 Troponin I 0.024 0.035 NT-Pro-B Natriuret Pep 06/07/19 03:14 Creatine Kinase CK-MB (CK-2) Troponin I NT-Pro-B Natriuret Pep 3070 H Impressions: Chest/Abdomen CTA 06/06/19 00:00 IMPRESSION: No PE. No acute findings. Chest X-Ray 06/06/19 14:36 IMPRESSION: Mild cardiomegaly. No failure or consolidation. Assessment and Plan - Diagnosis (1) CHF (congestive heart failure) Qualifiers: Heart failure type: unspecified Heart failure chronicity: acute on chronic Qualified Code(s): I50.9 - Heart failure, unspecified Is this a current diagnosis for this admission?: Yes Plan: 06/06/2019-patient is going to be admitted to [facility] for CHF exacerbation. Admitted as inpatient. Started on IV Lasix 40 mg twice a day. GI prophylaxis and DVT prophylaxis will be initiated. Started on IV hydralazine 10 mg every 6 hours PRN for systolic blood pressure more than 160. Will start on low-sodium diet and fluid restriction. 06/07/2019-patient admitted for CHF exacerbation. Echocardiogram done EF is less than 30%. Dr. Samayoa is on board he is planning to arrange for LifeVest. (2) HTN (hypertension) Qualifiers: Hypertension type: essential hypertension Qualified Code(s): I10 - Essential (primary) hypertension Is this a current diagnosis for this admission?: Yes Plan: 06/06/2019-blood pressure is 152/113. To start her on IV Lasix 40 mg twice a day and start on IV hydralazine 10 mg every 6 hours PRN for systolic blood pressure more than 160. 06/07/2019-blood pressure today is 134/86. Stable. Plan is to continue Lasix 40 mg p.o. twice a day and patient is also on IV hydralazine 10 mg every 6 hours PRN for systolic blood pressure more than 160. (3) Morbid obesity with BMI of 40.0-44.9, adult Is this a current diagnosis for this admission?: No (4) Tobacco abuse Is this a current diagnosis for this admission?: No Plan: 06/07/2019 patient is a chronic smoker smoking counseling was provided for more than [address] him on nicotine patch.
[2019-06-07 10:41] LABS: CREATINE KINASE MB 1.07 ng/mL (<4.55); TROPONIN I 0.031 ng/mL
[2019-06-07] MEDS: FUROSEMIDE 40 MG TABLET PO SCH ×2 (10:51→17:56)
[2019-06-07] MEDS: METOPROLOL SUCCINATE 25 MG TAB.SR.24H PO SCH ×2 (10:51→22:10)
[2019-06-07] MEDS: ENOXAPARIN SODIUM INJ 40 MG/0.4 ML DISP.SYRIN SUBCUT SCH (10:51)
[2019-06-07] MEDS: NICOTINE 21 MG/24 HR PATCH.TD24 TD SCH (10:52)
[2019-06-07 11:45] LABS: URINE AMPHETAMINES SCREEN NEGATIVE; URINE BARBITURATES SCREEN NEGATIVE; URINE BENZODIAZEPINES SCREEN NEGATIVE; URINE COCAINE SCREEN NEGATIVE; URINE MARIJUANA (THC) SCREEN NEGATIVE; URINE METHADONE SCREEN NEGATIVE; URINE PHENCYCLIDINE SCREEN NEGATIVE
[2019-06-07] MEDS ORDERED: REGADENOSON INJ 0.4 MG/5 ML DISP.SYRIN IV ONE (12:00)
[2019-06-08] MEDS: PANTOPRAZOLE SODIUM 40 MG TABLET.DR PO SCH ×2 (05:44→17:56)
[2019-06-08 07:16] LABS: ABSOLUTE EOSINOPHILS # (AUTO) 0.2 10^3/uL (0.0-0.6); ABSOLUTE LYMPHOCYTES (AUTO) 2.9 10^3/uL (0.5-4.7); ABSOLUTE MONOCYTES (AUTO) 0.5 10^3/uL (0.1-1.4); ABSOLUTE NEUT (AUTO) 5.5 10^3/uL (1.7-8.2); BASOPHILS % (AUTO) 0.4 % (0-2); EOSINOPHILS % (AUTO) 2.2 % (0-6); HEMATOCRIT 40.1 % (36.0-47.0); HEMOGLOBIN 13.6 g/dL (12.0-15.5); LYMPHOCYTES % (AUTO) 31.9 % (13-45); MEAN CORPUSCULAR HEMOGLOBIN 27.9 pg (27.0-33.4); MEAN CORPUSCULAR VOLUME 82 fl (80-97); MONOCYTES % (AUTO) 5.3 % (3-13); PLATELET COUNT 115 10^3/uL (150-450); RED BLOOD COUNT 4.89 10^6/uL (3.72-5.28); RED CELL DISTRIBUTION WIDTH 14.6 % (11.5-14.0); SEGMENTED NEUTROPHILS % (AUTO) 60.2 % (42-78); TOTAL CELLS COUNTED % (AUTO) 100 %; WHITE BLOOD COUNT 9.2 10^3/uL (4.0-10.5)
[2019-06-08 07:32] LABS: ALKALINE PHOSPHATASE 79 U/L (38-126); ANION GAP 10 (5-19); ASPARTATE AMINO TRANSFERASE 19 U/L (14-36); BILIRUBIN,DIRECT 0.3 mg/dL (0.0-0.4); BILIRUBIN,TOTAL 0.8 mg/dL (0.2-1.3); BLOOD UREA NITROGEN 15 mg/dL (7-20); CALCIUM 9.5 mg/dL (8.4-10.2); CARBON DIOXIDE 27 mmol/L (22-30); CHLORIDE 102 mmol/L (98-107); GLUCOSE 129 mg/dL (75-110); POTASSIUM 4.1 mmol/L (3.6-5.0); TOTAL PROTEIN 7.8 g/dL (6.3-8.2)
--- NOTE | 2019-06-08 09:09 | PDOC PROGRESS REPORT ---
Subjective Progress Note for:: 06/08/19 Subjective:: 48 year old female with history of congestive heart failure with a EF of 35%, hypertension noncompliant with her medications came to the emergency room with complaints of shortness of breath for last 2 days. Patient was shortness of breath at rest and BNP is pending. Chest x-ray was normal with cardiomegaly. Plan is to admit her to the hospital for assessment of the CHF exacerbation. 06/07/[id number]-xirq-old female with history of congestive heart failure, hype rtension noncompliant with medications history of pericarditis came to the emergency room with complaints of shortness of breath. CTA of the chest is negative for acute pathology. Patient was started on IV Lasix 40 mg twice a day patient is feeling 100% better today. Pulse ox is 97% on room air. Dr. Samayoa called me to discuss the case he recommended to switch IV Lasix to p.o. Lasix, increase the dose of metoprolol, to hold lisinopril and start on Entresto after 36 hours, to arrange for a Lexiscan stress test. He is also planning to make arrangements for a LifeVest. In his opinion patient may have to stay until the weekend. Patient is comfortable in the bed communicating well. No complaints. 06/08/[id number]-jepw-old female with history of congestive heart failure, hypertension noncompliant with her medications, history of pericarditis admitted with severe shortness of breath. EF is less than 30%. She is going for stress test today. Dr. Brandon is thinking about making arrangements for LifeVest.. Reason For Visit: CHF EXACERBATION Physical Exam Vital Signs: Temp Pulse Resp BP Pulse Ox 98.1 F 78 16 134/92 H 92 06/08/19 04:44 06/08/19 07:00 06/08/19 04:44 06/08/19 04:44 06/08/19 04:44 Intake & Output 06/07/19 06/08/19 06/09/19 06:59 06:59 06:59 Intake Total 400 1420 Output Total 900 Balance 400 520 Weight 109.4 kg 107.6 kg General appearance: PRESENT: no acute distress Head exam: PRESENT: atraumatic Eye exam: PRESENT: PERRLA Mouth exam: PRESENT: moist, tongue midline Teeth exam: PRESENT: poor dentation Neck exam: ABSENT: carotid bruit, JVD, lymphadenopathy, thyromegaly Respiratory exam: PRESENT: decreased breath sounds Cardiovascular exam: PRESENT: RRR. ABSENT: diastolic murmur, rubs, systolic murmur Pulses: PRESENT: normal dorsalis pedis pul GI/Abdominal exam: PRESENT: normal bowel sounds, soft. ABSENT: distended, guarding, mass, organolmegaly, rebound, tenderness Rectal exam: PRESENT: deferred Extremities exam: PRESENT: full ROM. ABSENT: calf tenderness, clubbing, pedal edema Neurological exam: PRESENT: alert, awake, oriented to person, oriented to place, oriented to time, oriented to situation, CN II-XII grossly intact. ABSENT: motor sensory deficit Psychiatric exam: PRESENT: appropriate affect, normal mood. ABSENT: homicidal ideation, suicidal ideation Results Laboratory Results: 06/08/19 06:20 06/08/19 06:20 06/08/19 06/08/19 06:20 06:20 WBC 9.2 RBC 4.89 Hgb 13.6 Hct 40.1 MCV 82 MCH 27.9 MCHC 34.0 RDW 14.6 H Plt Count 115 L Seg Neutrophils % 60.2 Sodium 139.2 Potassium 4.1 Chloride 102 Carbon Dioxide 27 Anion Gap 10 BUN 15 Creatinine 0.86 Est GFR ( Amer) > 60 Glucose 129 H Calcium 9.5 Magnesium 2.0 Total Bilirubin 0.8 AST 19 Alkaline Phosphatase 79 Total Protein 7.8 Albumin 4.0 06/06/19 06/06/19 06/06/19 15:00 15:00 15:00 Creatine Kinase 112 CK-MB (CK-2) Troponin I 0.020 NT-Pro-B Natriuret Pep 2420 H 06/06/19 06/07/19 06/07/19 20:48 03:14 03:14 Creatine Kinase 90 CK-MB (CK-2) 1.49 1.14 Troponin I 0.024 0.035 NT-Pro-B Natriuret Pep 06/07/19 06/07/19 06/07/19 03:14 08:52 08:52 Creatine Kinase 87 CK-MB (CK-2) 1.07 Troponin I 0.031 NT-Pro-B Natriuret Pep 3070 H Impressions: Chest/Abdomen CTA 06/06/19 00:00 IMPRESSION: No PE. No acute findings. Chest X-Ray 06/06/19 14:36 IMPRESSION: Mild cardiomegaly. No failure or consolidation. Assessment and Plan - Diagnosis (1) CHF (congestive heart failure) Qualifiers: Heart failure type: unspecified Heart failure chronicity: acute on chronic Qualified Code(s): I50.9 - Heart failure, unspecified Is this a current diagnosis for this admission?: Yes Plan: 06/06/2019-patient is going to be admitted to [facility] for CHF exacerbation. Admitted as inpatient. Started on IV Lasix 40 mg twice a day. GI prophylaxis and DVT prophylaxis will be initiated. Started on IV hydralazine 10 mg every 6 hours PRN for systolic blood pressure more than 160. Will start on low-sodium diet and fluid restriction. 06/07/2019-patient admitted for CHF exacerbation. Echocardiogram done EF is less than 30%. Dr. Samayoa is on board he is planning to arrange for LifeVest. 06/08/2019-patient admitted with shortness of breath. Echocardiogram shows EF less than 30% admitted with acute on chronic systolic heart failure. Dr. Samayoa is making arrangements for a LifeVest. (2) HTN (hypertension) Qualifiers: Hypertension type: essential hypertension Qualified Code(s): I10 - Essential (primary) hypertension Is this a current diagnosis for this admission?: Yes Plan: 06/06/2019-blood pressure is 152/113. To start her on IV Lasix 40 mg twice a day and start on IV hydralazine 10 mg every 6 hours PRN for systolic blood pressure more than 160. 06/07/2019-blood pressure today is 134/86. Stable. Plan is to continue Lasix 40 mg p.o. twice a day and patient is also on IV hydralazine 10 mg every 6 hours PRN for systolic blood pressure more than 160.\ 06/08/2019 blood pressure today is 134/92. Plan is to continue stable Lasix 40 mg twice a day and she is also on IV hydralazine 10 mg every 6 hours PRN for systolic blood pressure more than 160. (3) Morbid obesity with BMI of 40.0-44.9, adult Is this a current diagnosis for this admission?: No (4) Tobacco abuse Is this a current diagnosis for this admission?: No
[2019-06-08] MEDS: FUROSEMIDE 40 MG TABLET PO SCH ×2 (10:37→17:56)
[2019-06-08] MEDS: ENOXAPARIN SODIUM INJ 40 MG/0.4 ML DISP.SYRIN SUBCUT SCH (10:38)
[2019-06-08] MEDS: METOPROLOL SUCCINATE 25 MG TAB.SR.24H PO SCH ×2 (10:39→21:16)
[2019-06-08] MEDS: NICOTINE 21 MG/24 HR PATCH.TD24 TD SCH (10:40)
--- NOTE | 2019-06-08 11:34 | DRAGON STRESS TEST REPORT ---
Pharmacological stress test was performed with regadenoson using the standard protocol. The heart rate was 81 bpm at rest and joaquín to 111 bpm during the infusion of regadenoson. The resting blood pressure was 140/92 mmHg and increased to 121/95 mmHg during regadenoson infusion which is a normal response. The patient complained of shortness of breath during the infusion of regadenoson. The resting EKG demonstrated normal sinus rhythm with left bundle branch block without any inducible changes during the infusion of regadenoson. Myocardial perfusion imaging was performed at rest following the injection of 13.88 mCi. At peak pharmacological effect the patient was injected with 46.2 mCi. Findings: -The overall quality of the study is good. There were no significant artifacts. -Left ventricular cavity was noted to be enlarged on both rest and stress studies. -Resting images demonstrate a medium sized, mild intensity perfusion defect in the anteroseptal l wall. -Stress images demonstrate a medium sized moderate intensity perfusion defect in the anteroseptal wall. -Gated SPECT imaging reveals severely depressed LV systolic function with an ejection fraction of 23% and global hypokinesis. Impression: -Myocardial perfusion imaging is abnormal. -There is evidence of prior scar in the anteroseptal segment with coexisting ischemia. -Left ventricular systolic function is severely depressed. -There is global hypokinesis. MTDD
--- NOTE | 2019-06-08 12:14 | PDOC PROGRESS REPORT ---
Subjective Progress Note for:: 06/08/19 Subjective:: LUIZ MAYEN is a 48 year old female with history of hypertension, pericarditis approximately 15 years ago, tobacco use of 1 pack/day for at least 20 years now smoking only 1 pack/week for the last 4 months and heart failure who is consulted to our service after she was admitted for dyspnea and lower extremity edema. The patient states that she was initially diagnosed with heart failure approximately 2 years ago when she presented to this hospital with similar symptoms however I have not been able to find any prior admissions in the electronic medical record. Apparently she was admitted to this institution in October 2018 and underwent echocardiography with a low ejection fraction however, once again, I cannot find any prior records. She ran out of her Lasix in mid April and had been doing okay until a few days prior to admission when she developed shortness of breath and lower extremity edema as well as PND and some orthopnea. She came to the emergency room where she was found to be in heart failure with a proBNP of greater than 3000. She was given Lasix IV and this morning feels 100% better. She specifically denies lower extremity edema, shortness of breath, PND and orthopnea. 06/08/2019: The patient continues to feel well this morning and denies new cardiac complaints. Her fluid balance is +920 cc since admission however she remains asymptomatic and as a matter fact improved. Current Medication List Generic Name Dose Route Start Last Admin Trade Name Freq PRN Reason Stop Dose Admin Acetaminophen 650 mg 06/06/19 18:45 Tylenol 325 Mg Tablet PO 07/06/19 18:44 Q4HP PRN FEVER >101 Enoxaparin Sodium 40 mg 06/07/19 10:00 06/07/19 10:51 Lovenox Inj 40 Mg/0.4 Ml Disp.Syrin SUBCUT 07/07/19 09:59 40 mg DAILY KILO Administration Furosemide 40 mg 06/07/19 10:30 06/07/19 17:56 Lasix 40 Mg Tablet PO 07/07/19 10:29 40 mg BID KILO Administration Metoprolol Succinate 50 mg 06/07/19 10:30 06/07/19 22:10 Toprol Xl 25 Mg Tab.Sr PO 07/07/19 10:29 50 mg Q12 KILO Administration Nicotine 1 each 06/07/19 10:30 06/07/19 10:52 Nicoderm 21 Mg/24 Hr Transderm Patch TD 07/07/19 10:29 Not Given DAILY [facility] Ondansetron HCl 4 mg 06/06/19 18:45 Zofran Inj/Pf 4 Mg/2 Ml Sdv IV 07/06/19 18:44 Q8HP PRN FOR NAUSEA/VOMITING Pantoprazole Sodium 40 mg 06/07/19 06:00 06/08/19 05:[address] Tablet PO 07/07/19 05:59 Not Given BID@0600,1700 [facility] Discontinued Medications Generic Name Dose Route Start Last Admin Trade Name Freq PRN Reason Stop Dose Admin Albuterol/Ipratropium 3 ml 06/06/19 20:00 06/06/19 21:00 Duoneb 3 Ml Ampul NEB 06/06/19 20:01 3 ml RTNOW ONE Administration Aspirin 324 mg 06/06/19 14:35 06/06/19 15:26 Aspirin 81 Mg Chewable Tablet PO 06/06/19 14:36 324 mg NOW ONE Administration Furosemide 40 mg 06/06/19 18:27 06/06/19 19:03 Lasix Inj/Pf 40 Mg/4 Ml Sdv IV 06/06/19 18:28 40 mg NOW ONE Administration Furosemide 40 mg 06/07/19 10:00 Lasix Inj/Pf 40 Mg/4 Ml Sdv IV 07/07/19 09:59 BID [facility] Lisinopril 10 mg 06/07/19 10:00 Prinivil 10 Mg Tablet PO 07/07/19 09:59 Q12 [facility] Metoprolol Succinate 25 mg 06/07/19 10:00 Toprol Xl 25 Mg Tab.Sr PO 07/07/19 09:59 Q12 [facility] Reason For Visit: CHF EXACERBATION Physical Exam Vital Signs: Temp Pulse Resp BP Pulse Ox 98.1 F 87 16 134/92 H 92 06/08/19 04:44 06/08/19 04:44 06/08/19 04:44 06/08/19 04:44 06/08/19 04:44 Intake & Output 06/07/19 06/08/19 06/09/19 06:59 06:59 06:59 Intake Total 400 1420 Output Total 900 Balance 400 520 Weight 109.4 kg General appearance: PRESENT: no acute distress, well-developed, well-nourished Head exam: PRESENT: atraumatic, normocephalic Neck exam: ABSENT: carotid bruit, JVD, lymphadenopathy, thyromegaly Respiratory exam: PRESENT: clear to auscultation bria. ABSENT: rales, rhonchi, wheezes Cardiovascular exam: PRESENT: gallop, RRR. ABSENT: diastolic murmur, rubs, systolic murmur Pulses: PRESENT: normal dorsalis pedis pul Extremities exam: PRESENT: full ROM. ABSENT: calf tenderness, clubbing, pedal edema Results Laboratory Results: 06/06/19 06/06/19 06/06/19 15:00 15:00 15:00 Creatine Kinase 112 CK-MB (CK-2) Troponin I 0.020 NT-Pro-B Natriuret Pep 2420 H 06/06/19 06/07/19 06/07/19 20:48 03:14 03:14 Creatine Kinase 90 CK-MB (CK-2) 1.49 1.14 Troponin I 0.024 0.035 NT-Pro-B Natriuret Pep 06/07/19 06/07/19 06/07/19 03:14 08:52 08:52 Creatine Kinase 87 CK-MB (CK-2) 1.07 Troponin I 0.031 NT-Pro-B Natriuret Pep 3070 H Impressions: Chest/Abdomen CTA 06/06/19 00:00 IMPRESSION: No PE. No acute findings. Chest X-Ray 06/06/19 14:36 IMPRESSION: Mild cardiomegaly. No failure or consolidation. Assessment & Plan - Diagnosis (1) Acute CHF (congestive heart failure) Qualifiers: Heart failure type: systolic Qualified Code(s): I50.21 - Acute systolic (congestive) heart failure Is this a current diagnosis for this admission?: Yes Plan: Very unfortunate 48-year-old female with a history of heart failure with reduced ejection fraction since at least 2 years who has not had adequate cardiovascular care secondary to her very difficult social situation as well as very tight financial status. The patient underwent Lexiscan MPS this morning without complications confirming the presence of severe cardiomyopathy with infarct pattern in the anterolateral wall with partial reversibility. Her current heart failure exacerbation is secondary to noncompliance with medications as she cannot pay for them and possible cardiac ischemia given her MPS results. Fortunately, she is now in the process of being enrolled into the [facility]. Today she feels 100% better after Lasix IV. She is now hypertensive. I contacted the [employer] area representative who is working on getting her the device. Recommendations: -Continue with Lasix 40 mg daily. -Continue with metoprolol succinate at current doses for now. -Start Entresto 49 mg/51 mg p.o. twice daily 36 hours after stopping lisinopril. -Dietitian/nutrition consult for low-sodium diet. -External wearable defibrillator (LifeVest) prior to discharge. -Strict intake and output in chart. -Low-sodium diet, less than 2000 mg daily. -Possible C early next week. (2) HTN (hypertension) Qualifiers: Hypertension type: essential hypertension Qualified Code(s): I10 - Essential (primary) hypertension Is this a current diagnosis for this admission?: Yes Plan: She is now hypertensive. We will start Entresto as recommended above.
[2019-06-08] MEDS: SACUBITRIL/VALSARTAN 49 MG/51 MG TABLET PO SCH (17:56)
[2019-06-09] MEDS: SACUBITRIL/VALSARTAN 49 MG/51 MG TABLET PO SCH ×2 (05:53→18:10)
[2019-06-09] MEDS: PANTOPRAZOLE SODIUM 40 MG TABLET.DR PO SCH ×2 (05:53→17:09)
--- NOTE | 2019-06-09 08:24 | PDOC PROGRESS REPORT ---
Subjective Progress Note for:: 06/09/19 Subjective:: LUIZ MAYEN is a 48 year old female with history of hypertension, pericarditis approximately 15 years ago, tobacco use of 1 pack/day for at least 20 years now smoking only 1 pack/week for the last 4 months and heart failure who is consulted to our service after she was admitted for dyspnea and lower extremity edema. The patient states that she was initially diagnosed with heart failure approximately 2 years ago when she presented to this hospital with similar symptoms however I have not been able to find any prior admissions in the electronic medical record. Apparently she was admitted to this institution in October 2018 and underwent echocardiography with a low ejection fraction however, once again, I cannot find any prior records. She ran out of her Lasix in mid April and had been doing okay until a few days prior to admission when she developed shortness of breath and lower extremity edema as well as PND and some orthopnea. She came to the emergency room where she was found to be in heart failure with a proBNP of greater than 3000. She was given Lasix IV and this morning feels 100% better. She specifically denies lower extremity edema, shortness of breath, PND and orthopnea. 06/09/2019: This morning the patient is found sitting up at the bedside eating breakfast. She has no new complaints and actually feels 100% better after the first dose of Entresto was administered. Her telemetry, however, demonstrated a very short episode of what appears to be third-degree AV block lasting approximately 3-5 beats with heart rates as low as 35 to 40 bpm. This event occurred around 0740 and the patient was asymptomatic, she specifically denied chest pain, shortness of breath, dizziness, lightheadedness, syncope and presyncope.. Current Medication List Generic Name Dose Route Start Last Admin Trade Name Freq PRN Reason Stop Dose Admin Acetaminophen 650 mg 06/06/19 18:45 Tylenol 325 Mg Tablet PO 07/06/19 18:44 Q4HP PRN FEVER >101 Enoxaparin Sodium 40 mg 06/07/19 10:00 06/07/19 10:51 Lovenox Inj 40 Mg/0.4 Ml Disp.Syrin SUBCUT 07/07/19 09:59 40 mg DAILY KILO Administration Furosemide 40 mg 06/07/19 10:30 06/07/19 17:56 Lasix 40 Mg Tablet PO 07/07/19 10:29 40 mg BID KILO Administration Metoprolol Succinate 50 mg 06/07/19 10:30 06/07/19 22:10 Toprol Xl 25 Mg Tab.Sr PO 07/07/19 10:29 50 mg Q12 KILO Administration Nicotine 1 each 06/07/19 10:30 06/07/19 10:52 Nicoderm 21 Mg/24 Hr Transderm Patch TD 07/07/19 10:29 Not Given DAILY [facility] Ondansetron HCl 4 mg 06/06/19 18:45 Zofran Inj/Pf 4 Mg/2 Ml Sdv IV 07/06/19 18:44 Q8HP PRN FOR NAUSEA/VOMITING Pantoprazole Sodium 40 mg 06/07/19 06:00 06/08/19 05:[address] Tablet PO 07/07/19 05:59 Not Given BID@0600,1700 [facility] Discontinued Medications Generic Name Dose Route Start Last Admin Trade Name Freq PRN Reason Stop Dose Admin Albuterol/Ipratropium 3 ml 06/06/19 20:00 06/06/19 21:00 Duoneb 3 Ml Ampul NEB 06/06/19 20:01 3 ml RTNOW ONE Administration Aspirin 324 mg 06/06/19 14:35 06/06/19 15:26 Aspirin 81 Mg Chewable Tablet PO 06/06/19 14:36 324 mg NOW ONE Administration Furosemide 40 mg 06/06/19 18:27 06/06/19 19:03 Lasix Inj/Pf 40 Mg/4 Ml Sdv IV 06/06/19 18:28 40 mg NOW ONE Administration Furosemide 40 mg 06/07/19 10:00 Lasix Inj/Pf 40 Mg/4 Ml Sdv IV 07/07/19 09:59 BID [facility] Lisinopril 10 mg 06/07/19 10:00 Prinivil 10 Mg Tablet PO 07/07/19 09:59 Q12 [facility] Metoprolol Succinate 25 mg 06/07/19 10:00 Toprol Xl 25 Mg Tab.Sr PO 07/07/19 09:59 Q12 [facility] Reason For Visit: CHF EXACERBATION Physical Exam Vital Signs: Temp Pulse Resp BP Pulse Ox 97.7 F 75 14 116/82 96 06/09/19 04:12 06/09/19 04:12 06/09/19 04:12 06/09/19 04:12 06/09/19 04:12 Intake & Output 06/08/19 06/09/19 06/10/19 06:59 06:59 06:59 Intake Total 1420 1720 Output Total 900 2500 Balance 520 -780 Weight 107.6 kg 107.3 kg General appearance: PRESENT: no acute distress, well-developed, well-nourished Head exam: PRESENT: atraumatic, normocephalic Eye exam: PRESENT: conjunctiva pink, EOMI, PERRLA. ABSENT: scleral icterus Neck exam: ABSENT: carotid bruit, JVD, lymphadenopathy, thyromegaly Respiratory exam: PRESENT: clear to auscultation bria. ABSENT: rales, rhonchi, wheezes Cardiovascular exam: PRESENT: gallop, RRR. ABSENT: bradycardia, diastolic murmur, rubs, systolic murmur Pulses: PRESENT: normal dorsalis pedis pul Extremities exam: PRESENT: full ROM. ABSENT: calf tenderness, clubbing, pedal edema Results Laboratory Results: 06/08/19 06:20 06/08/19 06:20 06/06/19 06/06/19 06/06/19 15:00 15:00 15:00 Creatine Kinase 112 CK-MB (CK-2) Troponin I 0.020 NT-Pro-B Natriuret Pep 2420 H 06/06/19 06/07/19 06/07/19 20:48 03:14 03:14 Creatine Kinase 90 CK-MB (CK-2) 1.49 1.14 Troponin I 0.024 0.035 NT-Pro-B Natriuret Pep 06/07/19 06/07/19 06/07/19 03:14 08:52 08:52 Creatine Kinase 87 CK-MB (CK-2) 1.07 Troponin I 0.031 NT-Pro-B Natriuret Pep 3070 H Impressions: Chest/Abdomen CTA 06/06/19 00:00 IMPRESSION: No PE. No acute findings. Chest X-Ray 06/06/19 14:36 IMPRESSION: Mild cardiomegaly. No failure or consolidation. Assessment & Plan - Diagnosis (1) Acute CHF (congestive heart failure) Qualifiers: Heart failure type: systolic Qualified Code(s): I50.21 - Acute systolic (congestive) heart failure Is this a current diagnosis for this admission?: Yes Plan: Very unfortunate 48-year-old female with a history of heart failure with reduced ejection fraction since at least 2 years who has not had adequate cardiovascular care secondary to her very difficult social situation as well as very tight financial status. Her Lexiscan MPS on 06/08/2019 confirmed the presence of severe cardiomyopathy with infarct pattern in the anterolateral wall with partial reversibility. She continues to feel well from a cardiovascular standpoint and actually has felt much better after administration of Entresto. Even though she has remained asymptomatic, her telemetry demonstrated an episode of what appears to be third-degree AV block which lasted just a few seconds and which was not associated with syncope, presyncope or dizziness. We are still awaiting the [employer]. Her current heart failure exacerbation is secondary to noncompliance with medications as she cannot pay for them and possible cardiac ischemia given her MPS results. Given her very brief episode of complete heart block I will decrease her Toprol-XL to 50 mg daily and will plan for left heart catheterization on 06/12/2019. If the patient remains asymptomatic, without further episodes of AV block and with the LifeVest in place she then could be discharged home otherwise we will keep her in the hospital until she gets the LifeVest. Of note, she is now over 700 cc negative fluid balance. Recommendations: -Continue with Lasix 40 mg daily. -Decrease Toprol-XL to 50 mg daily. -proBNP. -Continue with Entresto 49 mg/51 mg p.o. twice daily 36 hours after stopping lis inopril. -Dietitian/nutrition consult for low-sodium diet. -External wearable defibrillator (LifeVest) prior to discharge. -Strict intake and output in chart. -Low-sodium diet, less than 2000 mg daily. -[facility] on 06/12/2019. (2) HTN (hypertension) Qualifiers: Hypertension type: essential hypertension Qualified Code(s): I10 - Essential (primary) hypertension Is this a current diagnosis for this admission?: Yes Plan: Her blood pressure is now at goal.
[2019-06-09] MEDS: FUROSEMIDE 40 MG TABLET PO SCH ×2 (09:42→18:09)
[2019-06-09] MEDS: METOPROLOL SUCCINATE 50 MG TAB.SR.24H PO SCH (09:42)
[2019-06-09] MEDS: ENOXAPARIN SODIUM INJ 40 MG/0.4 ML DISP.SYRIN SUBCUT SCH (09:43)
[2019-06-09] MEDS: NICOTINE 21 MG/24 HR PATCH.TD24 TD SCH (09:43)
[2019-06-09] MEDS ORDERED: METOPROLOL SUCCINATE 25 MG TAB.SR.24H PO SCH (10:00)
--- NOTE | 2019-06-09 13:30 | PDOC PROGRESS REPORT ---
Subjective Progress Note for:: 06/09/19 Subjective:: LUIZ MAYEN is a 48 year old female with history of hypertension, pericarditis approximately 15 years ago, tobacco use of 1 pack/day for at least 20 years now smoking only 1 pack/week for the last 4 months and heart failure who is consulted to our service after she was admitted for dyspnea and lower extremity edema. The patient states that she was initially diagnosed with heart failure approximately 2 years ago when she presented to this hospital with similar symptoms however I have not been able to find any prior admissions in the electronic medical record. Apparently she was admitted to this institution in October 2018 and underwent echocardiography with a low ejection fraction however, once again, I cannot find any prior records. She ran out of her Lasix in mid April and had been doing okay until a few days prior to admission when she developed shortness of breath and lower extremity edema as well as PND and some orthopnea. She came to the emergency room where she was found to be in heart failure with a proBNP of greater than 3000. She was given Lasix IV and this morning feels 100% better. She specifically denies lower extremity edema, shortness of breath, PND and orthopnea. 06/09/2019. No acute events overnight. Patient currently resting up in apparent distress, denies any fever, chills, nausea, vomiting, diarrhea, constipation or any urinary symptoms. Ambulatory. P.o. tolerant. Having normal bowel and bladder movements. Patient has been followed by cardiology recently started on Entresto, patient reporting significant improvement of her symptoms since being started on Entresto. Patient is scheduled to have left heart cath on 06/12/2019. As per cardiology patient needs to be discharged home on LifeVest. Reason For Visit: CHF EXACERBATION Physical Exam Vital Signs: Temp Pulse Resp BP Pulse Ox 98.1 F 82 16 118/79 98 06/09/19 11:20 06/09/19 11:20 06/09/19 11:20 06/09/19 11:20 06/09/19 11:20 Intake & Output 06/08/19 06/09/19 06/10/19 06:59 06:59 06:59 Intake Total 1420 1720 360 Output Total 900 2500 400 Balance 520 -780 -40 Weight 107.6 kg 107.3 kg General appearance: PRESENT: obese Head exam: PRESENT: atraumatic, normocephalic Respiratory exam: PRESENT: clear to auscultation bria. ABSENT: rales, rhonchi, wheezes Cardiovascular exam: PRESENT: RRR. ABSENT: diastolic murmur, rubs, systolic murmur GI/Abdominal exam: PRESENT: normal bowel sounds, soft. ABSENT: distended, guarding, mass, organolmegaly, rebound, tenderness Extremities exam: PRESENT: full ROM. ABSENT: calf tenderness, clubbing, pedal edema Neurological exam: PRESENT: alert, awake, oriented to person, oriented to place, oriented to time, oriented to situation, CN II-XII grossly intact. ABSENT: motor sensory deficit Results Laboratory Results: 06/08/19 06:20 06/08/19 06:20 06/06/19 06/06/19 06/06/19 15:00 15:00 15:00 Creatine Kinase 112 CK-MB (CK-2) Troponin I 0.020 NT-Pro-B Natriuret Pep 2420 H 06/06/19 06/07/19 06/07/19 20:48 03:14 03:14 Creatine Kinase 90 CK-MB (CK-2) 1.49 1.14 Troponin I 0.024 0.035 NT-Pro-B Natriuret Pep 06/07/19 06/07/19 06/07/19 03:14 08:52 08:52 Creatine Kinase 87 CK-MB (CK-2) 1.07 Troponin I 0.031 NT-Pro-B Natriuret Pep 3070 H Impressions: Chest/Abdomen CTA 06/06/19 00:00 IMPRESSION: No PE. No acute findings. Chest X-Ray 06/06/19 14:36 IMPRESSION: Mild cardiomegaly. No failure or consolidation. Assessment and Plan - Diagnosis (1) Acute CHF (congestive heart failure) Qualifiers: Heart failure type: systolic Qualified Code(s): I50.21 - Acute systolic (congestive) heart failure Is this a current diagnosis for this admission?: Yes Plan: Acute on chronic systolic heart failure NYHA stage III. Denies any history of CAD. History of uncontrolled hypertension. BNP 3070 on admission. 2D echo LVEF <25%, severe left ventricular global hypokinesis with dyskinesis of the anterior wall and akinesis of the inferior and inferolateral yuan. Continue cardiac diet, Lasix, Toprol, Entresto, strict in and out. Cardiology on board. Recommendations noted. Patient is scheduled to have left heart cath on 06/12/[address] Bob marin. (2) Morbid obesity with BMI of 40.0-44.9, adult Is this a current diagnosis for this admission?: No Plan: TSH WNL. Diet and lifestyle modification recommended. Patient reports history of snoring. Outpatient PCP and nocturnal polysomnography to rule out obstructive sleep apnea. (3) Tobacco abuse Is this a current diagnosis for this admission?: No Plan: Counseled on quitting. NicoDerm patch provided. (4) HTN (hypertension) Qualifiers: Hypertension type: essential hypertension Qualified Code(s): I10 - Essential (primary) hypertension Is this a current diagnosis for this admission?: Yes Plan: Euvolemic. Normotensive. Continue current meds. Outpatient PCP follow-up. (5) New onset type 2 diabetes mellitus Is this a current diagnosis for this admission?: Yes Plan: Hemoglobin A1c 6.5. Diabetic diet. Accu-Chek. Hypoglycemia protocol. Sliding scale insulin. We will start metformin 500 mg p.o. twice daily to be uptitrated to thousand milligrams p.o. twice daily. Outpatient PCP follow-up.
[2019-06-09] MEDS ORDERED: DEXTROSE 40% GEL 15 GM TUBE PO PRN ×2 (13:40)
[2019-06-09] MEDS ORDERED: DEXTROSE 50%-WATER 25 GM/50 ML DISP.SYRIN IV PRN ×2 (13:40)
[2019-06-09] MEDS ORDERED: GLUCAGON,HUMAN RECOMB 1 MG INJ IM PRN (13:40)
[2019-06-09] MEDS: METFORMIN HCL 500 MG TABLET PO SCH (16:08)
[2019-06-09] MEDS: INSULIN LISPRO 100 UNIT/ML 3 ML VIAL SUBCUT SCH ×2 (18:07→22:06)
[2019-06-10] MEDS: SACUBITRIL/VALSARTAN 49 MG/51 MG TABLET PO SCH ×2 (06:20→17:12)
[2019-06-10] MEDS: PANTOPRAZOLE SODIUM 40 MG TABLET.DR PO SCH ×2 (06:20→16:59)
[2019-06-10] MEDS: INSULIN LISPRO 100 UNIT/ML 3 ML VIAL SUBCUT SCH ×4 (08:29→21:55)
[2019-06-10] MEDS: ENOXAPARIN SODIUM INJ 40 MG/0.4 ML DISP.SYRIN SUBCUT SCH (09:00)
[2019-06-10] MEDS: NICOTINE 21 MG/24 HR PATCH.TD24 TD SCH (09:00)
[2019-06-10] MEDS: FUROSEMIDE 40 MG TABLET PO SCH (09:05)
[2019-06-10] MEDS: METFORMIN HCL 500 MG TABLET PO SCH ×2 (09:05→16:59)
[2019-06-10] MEDS: METOPROLOL SUCCINATE 50 MG TAB.SR.24H PO SCH (09:05)
--- NOTE | 2019-06-10 09:17 | PDOC PROGRESS REPORT ---
Subjective Progress Note for:: 06/10/19 Subjective:: LUIZ MAYEN is a 48 year old female with history of hypertension, pericarditis approximately 15 years ago, tobacco use of 1 pack/day for at least 20 years now smoking only 1 pack/week for the last 4 months and heart failure who is consulted to our service after she was admitted for dyspnea and lower extremity edema. The patient states that she was initially diagnosed with heart failure approximately 2 years ago when she presented to this hospital with similar symptoms however I have not been able to find any prior admissions in the electronic medical record. Apparently she was admitted to this institution in October 2018 and underwent echocardiography with a low ejection fraction however, once again, I cannot find any prior records. She ran out of her Lasix in mid April and had been doing okay until a few days prior to admission when she developed shortness of breath and lower extremity edema as well as PND and some orthopnea. She came to the emergency room where she was found to be in heart failure with a proBNP of greater than 3000. She was given Lasix IV and this morning feels 100% better. She specifically denies lower extremity edema, shortness of breath, PND and orthopnea. 06/10/2019: This morning the patient is found sitting up at the bedside getting ready to eat breakfast. She has no new complaints and actually feels 100% better. Her telemetry, however, demonstrated a very short episode of what appears to be third-degree AV block lasting approximately 3-5 beats with heart rates as low as 35 to 40 bpm yesterday therefore her toprol dose was decreased 50% which resulted in sinus tachycardia and several episodes of asymptomatic VT. She did receive the LifeVest yesterday and is wearing it. Current Medication List Generic Name Dose Route Start Last Admin Trade Name Freq PRN Reason Stop Dose Admin Acetaminophen 650 mg 06/06/19 18:45 Tylenol 325 Mg Tablet PO 07/06/19 18:44 Q4HP PRN FEVER >101 Enoxaparin Sodium 40 mg 06/07/19 10:00 06/07/19 10:51 Lovenox Inj 40 Mg/0.4 Ml Disp.Syrin SUBCUT 07/07/19 09:59 40 mg DAILY KILO Administration Furosemide 40 mg 06/07/19 10:30 06/07/19 17:56 Lasix 40 Mg Tablet PO 07/07/19 10:29 40 mg BID KILO Administration Metoprolol Succinate 50 mg 06/07/19 10:30 06/07/19 22:10 Toprol Xl 25 Mg Tab.Sr PO 07/07/19 10:29 50 mg Q12 KILO Administration Nicotine 1 each 06/07/19 10:30 06/07/19 10:52 Nicoderm 21 Mg/24 Hr Transderm Patch TD 07/07/19 10:29 Not Given DAILY KILO Ondansetron HCl 4 mg 06/06/19 18:45 Zofran Inj/Pf 4 Mg/2 Ml Sdv IV 07/06/19 18:44 Q8HP PRN FOR NAUSEA/VOMITING Pantoprazole Sodium 40 mg 06/07/19 06:00 06/08/19 05:[address] Tablet PO 07/07/19 05:59 Not Given BID@0600,1700 [facility] Discontinued Medications Generic Name Dose Route Start Last Admin Trade Name Freq PRN Reason Stop Dose Admin Albuterol/Ipratropium 3 ml 06/06/19 20:00 06/06/19 21:00 Duoneb 3 Ml Ampul NEB 06/06/19 20:01 3 ml RTNOW ONE Administration Aspirin 324 mg 06/06/19 14:35 06/06/19 15:26 Aspirin 81 Mg Chewable Tablet PO 06/06/19 14:36 324 mg NOW ONE Administration Furosemide 40 mg 06/06/19 18:27 06/06/19 19:03 Lasix Inj/Pf 40 Mg/4 Ml Sdv IV 06/06/19 18:28 40 mg NOW ONE Administration Furosemide 40 mg 06/07/19 10:00 Lasix Inj/Pf 40 Mg/4 Ml Sdv IV 07/07/19 09:59 BID [facility] Lisinopril 10 mg 06/07/19 10:00 Prinivil 10 Mg Tablet PO 07/07/19 09:59 Q12 [facility] Metoprolol Succinate 25 mg 06/07/19 10:00 Toprol Xl 25 Mg Tab.Sr PO 07/07/19 09:59 Q12 [facility] Reason For Visit: CHF EXACERBATION Physical Exam Vital Signs: Temp Pulse Resp BP Pulse Ox 97.8 F 90 17 96/68 L 97 06/10/19 07:32 06/10/19 07:32 06/10/19 07:32 06/10/19 07:32 06/10/19 07:32 Intake & Output 06/09/19 06/10/19 06/11/19 06:59 06:59 06:59 Intake Total 1720 1440 Output Total 2500 2350 Balance -780 -910 Weight 107.3 kg 108.6 kg General appearance: PRESENT: no acute distress, cooperative, obese, well-d eveloped, well-nourished Head exam: PRESENT: atraumatic, normocephalic Eye exam: PRESENT: conjunctiva pink, EOMI, PERRLA. ABSENT: scleral icterus Mouth exam: PRESENT: moist, tongue midline Neck exam: ABSENT: carotid bruit, JVD, lymphadenopathy, thyromegaly Respiratory exam: PRESENT: clear to auscultation bria. ABSENT: rales, rhonchi, wheezes Cardiovascular exam: PRESENT: gallop, RRR, tachycardia. ABSENT: bradycardia, diastolic murmur, rubs, systolic murmur Pulses: PRESENT: normal dorsalis pedis pul Vascular exam: PRESENT: normal capillary refill Results Laboratory Results: 06/08/19 06:20 06/08/19 06:20 06/06/19 06/06/19 06/06/19 15:00 15:00 15:00 Creatine Kinase 112 CK-MB (CK-2) Troponin I 0.020 NT-Pro-B Natriuret Pep 2420 H 06/06/19 06/07/19 06/07/19 20:48 03:14 03:14 Creatine Kinase 90 CK-MB (CK-2) 1.49 1.14 Troponin I 0.024 0.035 NT-Pro-B Natriuret Pep 06/07/19 06/07/19 06/07/19 03:14 08:52 08:52 Creatine Kinase 87 CK-MB (CK-2) 1.07 Troponin I 0.031 NT-Pro-B Natriuret Pep 3070 H 06/10/19 08:01 Creatine Kinase CK-MB (CK-2) Troponin I NT-Pro-B Natriuret Pep 567 H Impressions: Chest/Abdomen CTA 06/06/19 00:00 IMPRESSION: No PE. No acute findings. Chest X-Ray 06/06/19 14:36 IMPRESSION: Mild cardiomegaly. No failure or consolidation. Assessment & Plan - Diagnosis (1) Acute CHF (congestive heart failure) Qualifiers: Heart failure type: systolic Qualified Code(s): I50.21 - Acute systolic (congestive) heart failure Is this a current diagnosis for this admission?: Yes Plan: Very unfortunate 48-year-old female with a history of heart failure with reduced ejection fraction since at least 2 years who has not had adequate cardiovascular care secondary to her very difficult social situation as well as very tight financial status. Her Lexiscan MPS on 06/08/2019 confirmed the presence of severe cardiomyopathy with infarct pattern in the anterolateral wall with partial reversibility. She continues to feel well from a cardiovascular standpoint althoiugh her telemetry yesterday demonstrated an episode of what appears to be third-degree AV block which lasted just a few seconds and which was not associated with syncope, presyncope or dizziness. Her BB dose was reduced by 50% however she became tachycardic and her telemetry today demonstrated episodes of VT during which the patient was asymptomatic. She is euvolemic and her proBNP is down from >3000 to 567. She is now wearing the LifeVest. Given her VT, I will increase her toprol to 100mg daily and will keep her on telemetry one more day, if no further VT she can then be discharged home with planned LHC on Tuesday with Dr. Herb Miller who is already aware of the patient. At this point her lasix can be decreased to 40mg daily. Recommendations: -Decrease Lasix to 40 mg daily. -Increase Toprol-XL to 1000 mg daily. -Continue with Entresto 49 mg/51 mg p.o. twice daily 36 hours after stopping lisinopril. -Continue with wearable defibrillator (LifeVest). -Strict intake and output in chart. -Low-sodium diet, less than 2000 mg daily. -LHC on 06/12/2019. (2) HTN (hypertension) Qualifiers: Hypertension type: essential hypertension Qualified Code(s): I10 - Essential (primary) hypertension Is this a current diagnosis for this admission?: Yes Plan: Her blood pressure is now on the low side therefore we will decrease her lasix dose by 50% and will continue to monitor her vital signs.
[2019-06-10] MEDS ORDERED: METOPROLOL SUCCINATE 50 MG TAB.SR.24H PO ONE (09:45)
--- NOTE | 2019-06-10 10:35 | PDOC PROGRESS REPORT ---
Subjective Progress Note for:: 06/10/19 Subjective:: LUIZ MAYEN is a 48 year old female with history of hypertension, pericarditis approximately 15 years ago, tobacco use of 1 pack/day for at least 20 years now smoking only 1 pack/week for the last 4 months and heart failure who is consulted to our service after she was admitted for dyspnea and lower extremity edema. The patient states that she was initially diagnosed with heart failure approximately 2 years ago when she presented to this hospital with similar symptoms however I have not been able to find any prior admissions in the electronic medical record. Apparently she was admitted to this institution in October 2018 and underwent echocardiography with a low ejection fraction however, once again, I cannot find any prior records. She ran out of her Lasix in mid April and had been doing okay until a few days prior to admission when she developed shortness of breath and lower extremity edema as well as PND and some orthopnea. She came to the emergency room where she was found to be in heart failure with a proBNP of greater than 3000. She was given Lasix IV and this morning feels 100% better. She specifically denies lower extremity edema, shortness of breath, PND and orthopnea. 06/09/2019. No acute events overnight. Patient currently resting up in apparent distress, denies any fever, chills, nausea, vomiting, diarrhea, constipation or any urinary symptoms. Ambulatory. P.o. tolerant. Having normal bowel and bladder movements. Patient has been followed by cardiology recently started on Entresto, patient reporting significant improvement of her symptoms since being started on Entresto. Patient is scheduled to have left heart cath on 06/12/2019. As per cardiology patient needs to be discharged home on LifeVest. 06/10/2019. No acute events overnight. Patient reporting significant improvement of her symptoms is being started on LifeVest and medication adjustment, denies any fever, chills, nausea, vomiting, diarrhea, constipation or any urinary symptoms. As per cardiology recommendation patient's beta- blockers need to be adjusted and kept for another day and discharge home tomorrow. Reason For Visit: CHF EXACERBATION Physical Exam Vital Signs: Temp Pulse Resp BP Pulse Ox 97.8 F 90 17 96/68 L 97 06/10/19 07:32 06/10/19 07:32 06/10/19 07:32 06/10/19 07:32 06/10/19 07:32 Intake & Output 06/09/19 06/10/19 06/11/19 06:59 06:59 06:59 Intake Total 1720 1440 Output Total 2500 2350 Balance -780 -910 Weight 107.3 kg 108.6 kg General appearance: PRESENT: no acute distress, well-developed, well-nourished Head exam: PRESENT: atraumatic, normocephalic Respiratory exam: PRESENT: clear to auscultation bria. ABSENT: rales, rhonchi, wheezes Cardiovascular exam: PRESENT: RRR. ABSENT: diastolic murmur, rubs, systolic murmur GI/Abdominal exam: PRESENT: normal bowel sounds, soft. ABSENT: distended, guarding, mass, organolmegaly, rebound, tenderness Extremities exam: PRESENT: full ROM. ABSENT: calf tenderness, clubbing, pedal edema Neurological exam: PRESENT: alert, awake, oriented to person, oriented to place, oriented to time, oriented to situation, CN II-XII grossly intact. ABSENT: motor sensory deficit Results Laboratory Results: 06/08/19 06:20 06/08/19 06:20 06/06/19 06/06/19 06/06/19 15:00 15:00 15:00 Creatine Kinase 112 CK-MB (CK-2) Troponin I 0.020 NT-Pro-B Natriuret Pep 2420 H 06/06/19 06/07/19 06/07/19 20:48 03:14 03:14 Creatine Kinase 90 CK-MB (CK-2) 1.49 1.14 Troponin I 0.024 0.035 NT-Pro-B Natriuret Pep 06/07/19 06/07/19 06/07/19 03:14 08:52 08:52 Creatine Kinase 87 CK-MB (CK-2) 1.07 Troponin I 0.031 NT-Pro-B Natriuret Pep 3070 H 06/10/19 08:01 Creatine Kinase CK-MB (CK-2) Troponin I NT-Pro-B Natriuret Pep 567 H Impressions: Chest/Abdomen CTA 06/06/19 00:00 IMPRESSION: No PE. No acute findings. Chest X-Ray 06/06/19 14:36 IMPRESSION: Mild cardiomegaly. No failure or consolidation. Assessment and Plan - Diagnosis (1) Acute CHF (congestive heart failure) Qualifiers: Heart failure type: systolic Qualified Code(s): I50.21 - Acute systolic (congestive) heart failure Is this a current diagnosis for this admission?: Yes Plan: Acute on chronic systolic heart failure NYHA stage III. Denies any history of CAD. History of uncontrolled hypertension. BNP 3070 on admission. 2D echo LVEF <25%, severe left ventricular global hypokinesis with dyskinesis of the anterior wall and akinesis of the inferior and inferolateral yuan. Continue cardiac diet, Lasix, Toprol, Entresto, strict in and out. Cardiology on board. Recommendations noted. Patient is scheduled to have left heart cath on 06/12/[address] Bob Samayoa. (2) Morbid obesity with BMI of 40.0-44.9, adult Is this a current diagnosis for this admission?: No Plan: TSH WNL. Diet and lifestyle modification recommended. Patient reports history of snoring. Outpatient PCP and nocturnal polysomnography to rule out obstructive sleep apnea. (3) Tobacco abuse Is this a current diagnosis for this admission?: Yes Plan: Counseled on quitting. NicoDerm patch provided. (4) HTN (hypertension) Qualifiers: Hypertension type: essential hypertension Qualified Code(s): I10 - Essential (primary) hypertension Is this a current diagnosis for this admission?: Yes Plan: Euvolemic. Normotensive. Continue current meds. Outpatient PCP follow-up. (5) New onset type 2 diabetes mellitus Is this a current diagnosis for this admission?: Yes Plan: Hemoglobin A1c 6.5. Diabetic diet. Accu-Chek. Hypoglycemia protocol. Sliding scale insulin. We will start metformin 500 mg p.o. twice daily to be uptitrated to thousand milligrams p.o. twice daily. Outpatient PCP follow-up.
--- NOTE | 2019-06-11 00:42 | EKG REPORT ---
SEVERITY:- ABNORMAL ECG - SINUS RHYTHM FIRST DEGREE AV BLOCK PROBABLE LEFT ATRIAL ABNORMALITY LEFT BUNDLE BRANCH BLOCK : Confirmed by: Lb Guevara 11-Jun-2019 00:41:34
[2019-06-11] MEDS: PANTOPRAZOLE SODIUM 40 MG TABLET.DR PO SCH (06:09)
[2019-06-11] MEDS: SACUBITRIL/VALSARTAN 49 MG/51 MG TABLET PO SCH (06:09)
[2019-06-11] MEDS: ENOXAPARIN SODIUM INJ 40 MG/0.4 ML DISP.SYRIN SUBCUT SCH (09:56)
[2019-06-11] MEDS: NICOTINE 21 MG/24 HR PATCH.TD24 TD SCH (09:57)
[2019-06-11] MEDS ORDERED: METOPROLOL SUCCINATE 50 MG TAB.SR.24H PO SCH (10:00)
[2019-06-11] MEDS ORDERED: FUROSEMIDE 40 MG TABLET PO SCH (10:00)
[2019-06-11 10:30] LABS: HEMATOCRIT 43.9 % (36.0-47.0); HEMOGLOBIN 14.6 g/dL (12.0-15.5); MEAN CORPUSCULAR HEMOGLOBIN 27.5 pg (27.0-33.4); MEAN CORPUSCULAR HGB CONC 33.4 g/dL (32.0-36.0); MEAN CORPUSCULAR VOLUME 83 fl (80-97); PLATELET COUNT 154 10^3/uL (150-450); RED BLOOD COUNT 5.31 10^6/uL (3.72-5.28); RED CELL DISTRIBUTION WIDTH 14.6 % (11.5-14.0); WHITE BLOOD COUNT 8.7 10^3/uL (4.0-10.5)
[2019-06-11 10:56] LABS: ANION GAP 9 (5-19); BLOOD UREA NITROGEN 19 mg/dL (7-20); CALCIUM 9.4 mg/dL (8.4-10.2); CARBON DIOXIDE 25 mmol/L (22-30); CHLORIDE 103 mmol/L (98-107); GLUCOSE 122 mg/dL (75-110); POTASSIUM 4.3 mmol/L (3.6-5.0)
--- NOTE | 2019-06-11 11:05 | PDOC PROGRESS REPORT ---
Subjective Progress Note for:: 06/11/19 Subjective:: The patient is seen this morning sitting in her bedside chair. She has no specific complaints today. She has already been fitted for her wearable defibrillator. She denies angina, palpitations, dyspnea, lower extremity edema, presyncope/syncope, orthopnea or PND. The patient does note some mild lightheadedness with position change after starting new medications but this is rather mild. She is otherwise ambulating the room without difficulty and having good urinary output. Reason For Visit: CHF EXACERBATION Physical Exam Vital Signs: Temp Pulse Resp BP Pulse Ox 98.0 F 78 18 108/70 96 06/11/19 07:33 06/11/19 07:33 06/11/19 07:33 06/11/19 07:33 06/11/19 07:33 Intake & Output 06/10/19 06/11/19 06/12/19 06:59 06:59 06:59 Intake Total 1440 1720 Output Total 2350 2050 Balance -910 -330 Weight 108.6 kg 108.4 kg Exam: General Appearance: no acute distress, obese, no diaphoresis. Eyes:. Pupils equal round reactive to light, no injection no jaundice. EOMI HENT: atraumatic, oropharynx is clear with moist mucous membranes and acceptable dentition. Neck: supple, no masses, no thyromegaly and normal jugular venous pressure. Lungs: clear to auscultation, no wheezing/rhonchi, normal respiratory effort. chest: LifeVest in place Cardiovascular: Palpation of heart: normal PMI, no thrills. Auscultation of Heart: normal rate and rhythm, normal S1 and S2, without murmurs, no S3, no S4. Carotid pulses: no bruit, normal amplitude. Abdominal aorta: no bruit, normal amplitude. Radial pulses: normal amplitude. Femoral pulses: no bruit, normal amplitude. Pedal pulses: normal amplitude. Examination of extremities for edema and/or varicosities: normal. no pitting edema Abdomen: normal bowel sounds, obese, soft, non-tender, no masses, no hepatomegaly, no splenomegaly. Musculoskeletal: normal movement of all extremities. Extremities: no clubbing, no cyanosis. Integumentary: warm and dry bilaterally with no ulcers. Psychiatric: awake, alert and oriented x 3. Appropriate mood and affect. Results Laboratory Results: 06/08/19 06:20 06/08/19 06:20 06/06/19 06/06/19 06/06/19 15:00 15:00 15:00 Creatine Kinase 112 CK-MB (CK-2) Troponin I 0.020 NT-Pro-B Natriuret Pep 2420 H 06/06/19 06/07/19 06/07/19 20:48 03:14 03:14 Creatine Kinase 90 CK-MB (CK-2) 1.49 1.14 Troponin I 0.024 0.035 NT-Pro-B Natriuret Pep 06/07/19 06/07/19 06/07/19 03:14 08:52 08:52 Creatine Kinase 87 CK-MB (CK-2) 1.07 Troponin I 0.031 NT-Pro-B Natriuret Pep 3070 H 06/10/19 08:01 Creatine Kinase CK-MB (CK-2) Troponin I NT-Pro-B Natriuret Pep 567 H Current Medication List Generic Name Dose Route Start Last Admin Trade Name Fransiscoq PRN Reason Stop Dose Admin Acetaminophen 650 mg 06/06/19 18:45 Tylenol 325 Mg Tablet PO 07/06/19 18:44 Q4HP PRN FEVER >101 Dextrose 12.5 gm 06/09/19 13:40 Dextrose Inj 50% Syringe (25 Gm/50 Ml) IV 07/09/19 13:39 PRN PRN FOR BG 50-69 IN ALERT PATIENT Protocol Dextrose 25 gm 06/09/19 13:40 Dextrose Inj 50% Syringe (25 Gm/50 Ml) IV 07/09/19 13:39 PRN PRN PER PROTOCOL Protocol Enoxaparin Sodium 40 mg 06/07/19 10:00 06/11/19 09:56 Lovenox Inj 40 Mg/0.4 Ml Disp.Syrin SUBCUT 07/07/19 09:59 Not Given DAILY KILO Furosemide 40 mg 06/11/19 10:00 06/11/19 09:57 Lasix 40 Mg Tablet PO 07/11/19 09:59 40 mg DAILY KILO Administration Glucagon 1 mg 06/09/19 13:40 Glucagen Inj 1 Mg Vial IM 07/09/19 13:39 PRN PRN Evaluate for BG < 70 Protocol Glucose 15 gm 06/09/19 13:40 Glutose 40% Gel 15 Gm Tube PO 07/09/19 13:39 PRN PRN FOR BG 50-69 IN ALERT PATIENT Protocol Glucose 30 gm 06/09/19 13:40 Glutose 40% Gel 15 Gm Tube PO 07/09/19 13:39 PRN PRN FOR BG < 50 IN ALERT PATIENT Protocol Insulin Human Lispro 0 - 12 unit 06/09/19 16:00 06/10/19 21:55 Humalog Insulin 100 Unit/1 Ml 3 Ml Vial SUBCUT 07/09/19 15:59 Not Given ACHS KILO Protocol Metformin HCl 500 mg 06/09/19 16:00 06/10/19 16:59 Glucophage 500 Mg Tablet PO 07/09/19 15:59 500 mg BIDACBS KILO Administration Metoprolol Succinate 100 mg 06/11/19 10:00 06/11/19 09:57 Toprol Xl 50 Mg Tab.Sr PO 07/11/19 09:59 100 mg DAILY KILO Administration Nicotine 1 each 06/07/19 10:30 06/11/19 09:57 Nicoderm 21 Mg/24 Hr Transderm Patch TD 07/07/19 10:29 Not Given DAILY KILO Ondansetron HCl 4 mg 06/06/19 18:45 Zofran Inj/Pf 4 Mg/2 Ml Sdv IV 07/06/19 18:44 Q8HP PRN FOR NAUSEA/VOMITING Pantoprazole Sodium 40 mg 06/07/19 06:00 06/11/19 06:[address] Tablet PO 07/07/19 05:59 40 mg BID@0600,1700 KILO Administration Sacubitril/Valsartan 1 tab 06/08/19 18:00 06/11/19 06:09 Entresto 49 Mg/51 Mg Tablet PO 07/08/19 17:59 1 tab Q12A KILO Administration Impressions: Chest/Abdomen CTA 06/06/19 00:00 IMPRESSION: No PE. No acute findings. Chest X-Ray 06/06/19 14:36 IMPRESSION: Mild cardiomegaly. No failure or consolidation. Assessment & Plan - Diagnosis (1) Acute on chronic systolic CHF (congestive heart failure), NYHA class 2 Is this a current diagnosis for this admission?: Yes Plan: Per Dr. Samayoa's note yesterday "Very unfortunate 48-year-old female with a history of heart failure with reduced ejection fraction since at least 2 years who has not had adequate cardiovascular care secondary to her very difficult social situation as well as very tight financial status. Her Lexiscan MPS on 06/08/2019 confirmed the presence of severe cardiomyopathy with infarct pattern in the anterolateral wall with partial reversibility. She continues to feel well from a cardiovascular standpoint althoiugh her telemetry yesterday demonstrated an episode of what appears to be third-degree AV block which lasted just a few seconds and which was not associated with syncope, presyncope or dizziness. Her BB dose was reduced by 50% however she became tachycardic and her telemetry today demonstrated episodes of VT during which the patient was asymptomatic. She is euvolemic and her proBNP is down from >3000 to 567. She is now wearing the LifeVest. Given her VT, I will increase her toprol to 100mg daily and will keep her on telemetry one more day, if no further VT she can then be discharged home with planned LHC on Tuesday with Dr. Herb Miller who is already aware of the patient. At this point her lasix can be decreased to 40mg daily." 06/11/19: Telemetry reviewed with no sustained arrhythmias or pauses and no evidence for high degree AV block. Patient is tolerating medication changes and is currently asymptomatic. Left heart cath was planned for Tuesday, however, we do not have a fully operational High Pressure Firer for possible interventions due to ongoing Coronavi marta issues / and a tag and label cutter nurse who is quarantined at the moment; as such the patient will be discharged and a outpatient left heart catheterization will be arranged in the future. Recommendations: -Cont decreased Lasix dosing of 40 mg daily. bmp / mg pending this am -Cont Toprol-XL to 100 mg daily. -Continue Entresto 49 mg/51 mg p.o. twice daily. - will hold on addition of aldosterone antagonist at this time. We will continue to uptitrate guideline directed medical therapy in clinic and add aldactone at a later time. -Continue with wearable defibrillator (LifeVest). -Strict intake and output in chart; qdaily weights. -Low-sodium diet, less than 2000 mg daily. Sodium restriction daily weights at home discussed at length with the patient. She has our direct office number and is encouraged to call with any questions or concerns after hospital discharge, especially setting of dyspnea, lower extremity edema or weight gain more than 3 pounds over 1 day or 5 pounds in a week. The patient will be seen in our clinic, [facility] office, within 7 days of hospital discharge. This was fully explained and discussed with the patient today. She has the contact information in hand during my visit with her today. Plan of care was discussed with nursing and hospitalist team this morning.
[2019-06-11] MEDS: INSULIN LISPRO 100 UNIT/ML 3 ML VIAL SUBCUT SCH (12:09)
[2019-06-11 12:30] VITALS: BP 102/67
--- NOTE | 2019-06-16 17:44 | PDOC DISCHARGE SUMMARY ---
Impression - Admit/DC Date/PCP Admission Date/Primary Care Provider: 06/06/19 19:21 Discharge Date: 06/11/19 - Discharge Diagnosis (1) Acute CHF (congestive heart failure) Is this a current diagnosis for this admission?: Yes (2) Morbid obesity with BMI of 40.0-44.9, adult Is this a current diagnosis for this admission?: Yes (3) Tobacco abuse Is this a current diagnosis for this admission?: Yes (4) HTN (hypertension) Is this a current diagnosis for this admission?: Yes (5) New onset type 2 diabetes mellitus Is this a current diagnosis for this admission?: Yes - Additional Information Resuscitation Status: Full Code Discharge Diet: Cardiac Discharge Activity: Activity As Tolerated, Balance Activity w/Rest, Weigh Daily Referrals: [facility] [Outside] - 06/11/19 1:30 pm (Clinic is closed until further notice. ) Prescriptions: Sacubitril/Valsartan [Entresto 49 mg/51 mg Tablet] 1 tab PO Q12A 30 Days #60 tablet Metformin HCl [Glucophage 500 mg Tablet] 500 mg PO BIDACBS 30 Days #60 tablet Furosemide [Lasix 40 mg Tablet] 40 mg PO DAILY 30 Days #30 tablet Metoprolol Succinate [Toprol Xl 50 mg Tab.sr] 100 mg PO DAILY 30 Days #30 tab.sr.24h Home Medications: Furosemide [Lasix 40 mg Tablet] 40 mg PO DAILY 30 Days #30 tablet 06/11/19 Metformin HCl [Glucophage 500 mg Tablet] 500 mg PO BIDACBS 30 Days #60 tablet 06/11/19 Metoprolol Succinate [Toprol Xl 50 mg Tab.sr] 100 mg PO DAILY 30 Days #30 tab.sr.24h 06/11/19 Sacubitril/Valsartan [Entresto 49 mg/51 mg Tablet] 1 tab PO Q12A 30 Days #60 tablet 06/11/19 History of Present Illiness History of Present Illness: LUIZ MAYEN is a 48 year old female with history of hypertension, pericarditis approximately 15 years ago, tobacco use of 1 pack/day for at least 20 years now smoking only 1 pack/week for the last 4 months and heart failure who is consulted to our service after she was admitted for dyspnea and lower extremity edema. The patient states that she was initially diagnosed with heart failure approximately 2 years ago when she presented to this hospital with similar symptoms however I have not been able to find any prior admissions in the electronic medical record. Apparently she was admitted to this institution in October 2018 and underwent echocardiography with a low ejection fraction however, once again, I cannot find any prior records. She ran out of her Lasix in mid April and had been doing okay until a few days prior to admission when she developed shortness of breath and lower extremity edema as well as PND and some orthopnea. She came to the emergency room where she was found to be in heart failure with a proBNP of greater than 3000. She was given Lasix IV and this morning feels 100% better. She specifically denies lower extremity edema, shortness of breath, PND and orthopnea. Hospital Course Hospital Course: (1) Acute CHF (congestive heart failure) Acute on chronic systolic heart failure NYHA stage III. Denied any history of CAD. History of uncontrolled hypertension. BNP 3070 on admission. 2D echo LVEF <25%, severe left ventricular global hypokinesis with dyskinesis of the anterior wall and akinesis of the inferior and inferolateral yuan. Continued cardiac diet, Lasix, Toprol, Entresto, strict in and out. Cardiology on board. Recommendations noted. Patient is scheduled to have left heart cath on 06/12/[address] Bob Samayoa. Was discharged on Entresto twice daily, Lasix 40 mg daily, metoprolol succinate 100 g p.o. daily. (2) Morbid obesity with BMI of 40.0-44.9, adult TSH WNL. Diet and lifestyle modification recommended. Patient reports history of snoring. Outpatient PCP and nocturnal polysomnography to rule out obstructive sleep apnea. (3) Tobacco abuse Counseled on quitting. NicoDerm patch provided. (4) HTN (hypertension) Euvolemic. Normotensive. Continue current meds. Outpatient PCP follow-up. (5) New onset type 2 diabetes mellitus Hemoglobin A1c 6.5. Started on diabetic diet. Accu-Chek. Hypoglycemia protocol. Sliding scale insulin. Discharged home metformin 500 mg p.o. twice daily to be uptitrated to thousand milligrams p.o. twice daily. Diabetic education provided. Outpatient PCP follow-up. Physical Exam Vital Signs: Temp Pulse Resp BP Pulse Ox 98.0 F 78 18 142/98 H 96 06/11/19 12:12 06/11/19 12:12 06/11/19 12:12 06/11/19 12:12 06/11/19 12:12 General appearance: PRESENT: no acute distress, obese, well-developed, well- nourished Head exam: PRESENT: atraumatic, normocephalic Respiratory exam: PRESENT: clear to auscultation bria. ABSENT: rales, rhonchi, wheezes Cardiovascular exam: PRESENT: RRR. ABSENT: diastolic murmur, rubs, systolic murmur GI/Abdominal exam: PRESENT: normal bowel sounds, soft. ABSENT: distended, guarding, mass, organolmegaly, rebound, tenderness Neurological exam: PRESENT: alert, awake, oriented to person, oriented to place, oriented to time, oriented to situation, CN II-XII grossly intact. ABSENT: motor sensory deficit Results Laboratory Results: WBC 8.7 10^3/uL (4.0-10.5) 06/11/19 10:16 RBC 5.31 10^6/uL (3.72-5.28) H 06/11/19 10:16 Hgb 14.6 g/dL (12.0-15.5) 06/11/19 10:16 Hct 43.9 % (36.0-47.0) 06/11/19 10:16 MCV 83 fl (80-97) 06/11/19 10:16 MCH 27.5 pg (27.0-33.4) 06/11/19 10:16 MCHC 33.4 g/dL (32.0-36.0) 06/11/19 10:16 RDW 14.6 % (11.5-14.0) H 06/11/19 10:16 Plt Count 154 10^3/uL (150-450) 06/11/19 10:16 Lymph % (Auto) 31.9 % (13-45) 06/08/19 06:20 [place] % (Auto) 5.3 % (3-13) 06/08/19 06:20 Eos % (Auto) 2.2 % (0-6) 06/08/19 06:20 Baso % (Auto) 0.4 % (0-2) 06/08/19 06:20 Absolute Neuts (auto) 5.5 10^3/uL (1.7-8.2) 06/08/19 06:20 Absolute Lymphs (auto) 2.9 10^3/uL (0.5-4.7) 06/08/19 06:20 Absolute Monos (auto) 0.5 10^3/uL (0.1-1.4) 06/08/19 06:20 Absolute Eos (auto) 0.2 10^3/uL (0.0-0.6) 06/08/19 06:20 Absolute Basos (auto) 0.0 10^3/uL (0.0-0.2) 06/08/19 06:20 Seg Neutrophils % 60.2 % (42-78) 06/08/19 06:20 Sodium 137.2 mmol/L (137-145) 06/11/19 10:16 Potassium 4.3 mmol/L (3.6-5.0) 06/11/19 10:16 Chloride 103 mmol/L (98-107) 06/11/19 10:16 Carbon Dioxide 25 mmol/L (22-30) 06/11/19 10:16 Anion Gap 9 (5-19) 06/11/19 10:16 BUN 19 mg/dL (7-20) 06/11/19 10:16 Creatinine 0.78 mg/dL (0.52-1.25) 06/11/19 10:16 Est GFR ( Amer) > 60 (>60) 06/11/19 10:16 Est GFR (MDRD) Non-Af > 60 (>60) 06/11/19 10:16 Glucose 122 mg/dL (75-110) H 06/11/19 10:16 POC Glucose 123 mg/dL (70-110) H 06/11/19 11:14 Hemoglobin A1c % 6.5 % (4.7-6.0) H 06/07/19 03:14 Calcium 9.4 mg/dL (8.4-10.2) 06/11/19 10:16 Magnesium 2.1 mg/dL (1.6-2.3) 06/11/19 10:16 Total Bilirubin 0.8 mg/dL (0.2-1.3) 06/08/19 06:20 Direct Bilirubin 0.3 mg/dL (0.0-0.4) 06/08/19 06:20 Neonat Total Bilirubin Not Reportable 06/08/19 06:20 Neonat Direct Bilirubin Not Reportable 06/08/19 06:20 Neonat Indirect Bili Not Reportable 06/08/19 06:20 AST 19 U/L (14-36) 06/08/19 06:20 ALT 17 U/L (<35) 06/08/19 06:20 Alkaline Phosphatase 79 U/L (38-126) 06/08/19 06:20 Creatine Kinase 87 U/L (30-135) 06/07/19 08:52 CK-MB (CK-2) 1.07 ng/mL (<4.55) 06/07/19 08:52 Troponin I 0.031 ng/mL 06/07/19 08:52 NT-Pro-B Natriuret Pep 567 pg/mL (<125) H 06/10/19 08:01 Total Protein 7.8 g/dL (6.3-8.2) 06/08/19 06:20 Albumin 4.0 g/dL (3.5-5.0) 06/08/19 06:20 Triglycerides 105 mg/dL (<150) 06/07/19 03:14 Cholesterol 185.58 mg/dL (0-200) 06/07/19 03:14 LDL Cholesterol Direct 98 mg/dL (<100) 06/07/19 03:14 VLDL Cholesterol 21.0 mg/dL (10-31) 06/07/19 03:14 HDL Cholesterol 60 mg/dL (>40) 06/07/19 03:14 TSH 1.90 uIU/mL (0.47-4.68) 06/07/19 03:14 Urine Opiates Screen NEGATIVE 06/07/19 11:00 Urine Methadone Screen NEGATIVE 06/07/19 11:00 Ur Barbiturates Screen NEGATIVE 06/07/19 11:00 Ur Phencyclidine Scrn NEGATIVE 06/07/19 11:00 Ur Amphetamines Screen NEGATIVE 06/07/19 11:00 U Benzodiazepines Scrn NEGATIVE 06/07/19 11:00 Urine Cocaine Screen NEGATIVE 06/07/19 11:00 U Marijuana (THC) Screen NEGATIVE 06/07/19 11:00 06/06/19 06/06/19 06/06/19 15:00 15:00 20:48 CK-MB (CK-2) 1.49 Troponin I 0.020 0.024 NT-Pro-B Natriuret Pep 2420 H 06/07/19 06/07/19 06/07/19 03:14 03:14 08:52 CK-MB (CK-2) 1.14 1.07 Troponin I 0.035 0.031 NT-Pro-B Natriuret Pep 3070 H 06/10/19 08:01 CK-MB (CK-2) Troponin I NT-Pro-B Natriuret Pep 567 H Impressions: Chest/Abdomen CTA 06/06/19 00:00 IMPRESSION: No PE. No acute findings. Chest X-Ray 06/06/19 14:36 IMPRESSION: Mild cardiomegaly. No failure or consolidation. Stroke Is this a Stroke Patient?: No Acute Heart Failure - Is this a Heart Failure Patient?: No
== END 2019-06-11 12:45 | disposition home or self-care (01) | DRG 292 ==
LOC: ER 13:46 → EH 19:21 → 3W 22:34
PROVIDERS: ADMIT Internal Medicine; ATTEND Internal Medicine
DX: I11.0 Hypertensive heart disease with heart failure (principal); Z68.41 Body mass index [BMI] 40.0-44.9, adult; I50.23 Acute on chronic systolic (congestive) heart failure; I42.9 Cardiomyopathy, unspecified; T44.7X6A Underdosing of beta-adrenoreceptor antagonists, initial encounter; E66.01 Morbid (severe) obesity due to excess calories; F17.210 Nicotine dependence, cigarettes, uncomplicated; F17.290 Nicotine dependence, other tobacco product, uncomplicated; T50.1X6A Underdosing of loop [high-ceiling] diuretics, initial encounter; Z91.120 Patient's intentional underdosing of medication regimen due to financial hardship; Z82.49 Family history of ischemic heart disease and other diseases of the circulatory system; Z79.899 Other long term (current) drug therapy; Z79.84 Long term (current) use of oral hypoglycemic drugs; Z71.3 Dietary counseling and surveillance
CPT/HCPCS: 36415; 51702; 71046; 71275; 78452; 80048; 80053; 80061; 80307; 82550; 82553; 82962; 83036; 83735; 83880; 84443; 84484; 85025; 85027; 93005; 93010; 93017; 93306; 94640; 96374; 99285; A9500; J1650; J1940; J2785; J3490; J7620; Q9969